=== PATIENT | male | born 1940 | race Caucasian/White ===

== ENCOUNTER → 2017-11-09 10:37 | Outpatient (REF) | payer MEDICARE, MEDICAID, SELFPAY ==
[2017-11-09 11:09] LABS: Bilirubin Negative (Negative); Blood Moderate (Negative); Clarity Cloudy; Glucose Negative (Negative); Ketones Negative (Negative); Leukocyte Esterase Small (Negative); Nitrite Positive (Negative); Urobilinogen 0.2 EU/dL (Up TO 0.2); pH 6.5 (5-8)
[2017-11-09 11:20] LABS: Bacteria Packed HPF (Negative); RBC 20-50 (0-2); WBC >50 HPF (0-5)
[2017-11-09 11:21] LABS: C & S Indicated? Yes; Crystals Moderate Amorphous HPF (Negative)
== END ==
LOC: NCHCN 10:37
PROVIDERS: PCP Family Medicine; Visit Provider Family Medicine
DX: N39.0 Urinary tract infection, site not specified (principal); R50.9 Fever, unspecified
CPT/HCPCS: 81003; 81015; 87086

== ENCOUNTER 2017-11-09 12:45 | Emergency (ER) | payer MEDICARE, MEDICAID, SELFPAY ==
[2017-11-09] VITALS (33 sets, daily range): BP systolic 117–166; BP diastolic 57–82; PULSE 73–95; RESP 11–23; TEMP 36.3–36.7; O2SAT 93–99
--- NOTE | 2017-11-09 13:14 | DI.REPORT_ITS ---
SYMPTOM/DIAGNOSIS: CHEST PAIN PORTABLE AP CHEST: Comparison is made with 04/10/17. The lungs are suboptimally inflated. There is blunting and linear densities at the left costophrenic angle which could represent atelectasis. An infiltrate or effusion cannot be excluded on this single view. The right lung shows mild basilar atelectasis. The heart size is normal. IMPRESSION: Question of a small left pleural effusion, infiltrate versus atelectasis.
[2017-11-09] MEDS: Normal Saline 1,000 ML 1000 ML IV (13:30)
--- NOTE | 2017-11-09 13:31 | ED.GENADUL ---
Disposition Clinical Impression: UTI (urinary tract infection), Alzheimer's type dementia Disposition: [facility] (LEVEL 2) [facility] Condition: Stable Instructions: Urinary Tract Infection in Men (ED) Additional Instructions: Please continue the cefepime every 12 hours, if this is not possible, an alternative would be ceftriaxone. Please continue IV fluids, continue to monitor. Medical Decision Making - Medical Decision Making This is a 77-year-old male with a history of COPD, Alzheimer's, hypertension, massive CVA, who is DNR/DNI comfort measures only sign for antibiotics who has a do not transport statement on file. Per nursing staff at his extended care facility the patient verbalized today that he wanted to come to the ER for evaluation. They noticed a fever on exam, but no other complaints. The patient arrived in the ED he is nonverbal, responsive to sternal rub, moving all extremities spontaneously, but extremely fatigued. Gag reflex was intact. The patient did not speak at all. I did contact the physician at the facility and discussed the case with her (tatiana), she states that she had been told about the patient but she had not had the opportunity to evaluate the patient prior to transfer. She does confirm that the patient had been a DNR/DNI. This was reviewed on my own personal review of the patient's paperwork here in the ED. With the patient's fever he has worked up and evaluated for any potential infectious etiology, chest x-ray shows questionable pneumonia, however the patient's urinalysis does demonstrate notable signs of infection. Due to his chronic indwelling Mackay we will start him on cefepime, however I do think outpatient ceftriaxone is reasonable. Patient does have mildly elevated white count, however the remainder of his labs are otherwise unremarkable in his current clinical setting. Patient was given a small bolus of fluids as well, and still appears very stable. I did contact the patient's next of kin, on his emergency contact file, discussed the case and scenario with them, and they state that the patient has not been speaking for the last 3-4 days, and has been slowly deteriorating. They agree with the patient's documented paperwork stating his DNR/DNI/comfort measures only with antibiotics requests. They demonstrated understanding of his current clinical scenario. He had no other additional recommendations or thoughts at this time. I did contact the physician at the patient's rehab facility and again discussed the case with her, she agrees that with the patient's medical decision-making request, his current clinical disposition, and his clinical workup that he can be cared for at the rehab facility. Patient has been given cefepime here, and if possible they will continue cefepime there however if this becomes difficult they do think ceftriaxone would be very reasonable with potential reevaluation post cultures. I have extensively reviewed the treatment plan with the patient. I have addressed all patient concerns at this time. I have also discussed the plan with the admitting physician and they agree with the current assessment and plan and have agreed to assume responsibility for the patient. All parties demonstrate verbal understanding and agreement with our assessment and plan at this time. History of Present Illness - General Chief complaint: Fever Stated complaint: CALEX Time Seen by Provider: 11/09/17 13:09 - History of Present Illness Initial comments: This is a 77-year-old male with a past medical history of COPD, severe Alzheimer's, hypertension, cerebrovascular accident who is DNR/DNI comfort measures only with allowance for antibiotics, and also has a no transport request on file. He presents today for evaluation. Nursing staff at his extended care facility states that today he had a temperature with a T-max greater than 101. They noticed a decrease in mental status, that he has become nonverbal. However in spite of this they state that the patient specifically verbally said that he wanted to come to the ER for evaluation. The patient was not evaluated by the physician prior to transfer. Upon arrival the patient is nonverbal and has no complaints. He is lying in bed and only responds to sternal rub. He does appear to move all extremities when stimulated. Patient has no complaints. Patient has no recent surgical history, no pertinent family history. He does not utilize IV or illicit drugs. He does have a chronic indwelling Mackay catheter. - Related Data Albuterol Sulfate [Ventolin Hfa] 1 - 2 puff IH Q4H PRN puff NS 08/16/12 Citalopram Hydrobromide [Celexa] 30 mg PO DAILY tab-cap NS 08/16/12 Nitroglycerin [Nitrostat] 0.4 mg SL PRN NS 08/16/12 Tamsulosin HCl [Flomax] 0.4 mg PO DAILY tab-cap NS 08/16/12 Aspirin [Aspir 81] 81 mg PO DAILY 11/06/13 Folic Acid [Folate] 1 mg PO DAILY #30 tab 05/24/14 Multivitamin 1 tab PO DAILY #30 tab 05/24/14 Thiamine 100 mg PO DAILY #30 tab 05/24/14 Tiotropium [Spiriva Handihaler] 1 puff IH DAILY #1 shailesh 05/24/14 Acetaminophen [Pain & Fever] 650 mg PO Q4H PRN PRN 11/04/14 Albuterol Sulfate [Albuterol Sulfate Hfa] 8.5 gm IH QID PRN #1 hfa.aer.ad 12/14/14 Pantoprazole Sodium [Protonix] 20 mg PO DAILY 07/31/15 Clopidogrel [Plavix] 75 mg PO DAILY 12/26/16 Memantine HCl [Namenda] 5 mg PO DAILY 12/26/16 Milk of Magnesia [Milk Of Magnesia] 30 ml PO Q6H PRN #0 01/18/17 Bisacodyl [Dulcolax Suppository] 10 mg SD PRN PRN 02/10/17 Docusate Sodium [Stool Softener] 100 mg PO BID 02/10/17 OxyCODONE [Roxicodone Prepack] 5 mg PO Q4H PRN PRN 07/14/17 Fluticasone/Vilanterol [Breo Ellipta 200-25 Mcg INH] 1 each IH DAILY 11/09/17 Allergies Allergy/AdvReac Type Severity Reaction Status Date / Time No Known Allergies Allergy Unverified 11/09/17 12:50 Review of Systems Limitations: ROS unobtainable due to patients medical condition Past Medical History - Past Medical History Medical history: CAD, COPD, CVA/TIA, dementia, hypertension Alzheimer's dementia, BPH, PVD Surgical history: other (B/L femoral bypass 1998, Bladder surgery) - Social History Alcohol use: none (former heavy drinker) Drug use: none General Exam - Other Other exam information: 1.Const: Cachectic appearing elderly male 2.Eyes: PERRL, no conjunctival injection, and symmetrical lids. 3.ENT: Atraumatic external nose and ears. Dry MM. Neck: Symmetric, trachea midline, No thyromegaly. 4.CVS: +S1/S2, No murmurs or gallops. Peripheral pulses 2+ and equal in all extremities. Brisk capillary refill in all extremities. 5.RESP: Unlabored respiratory effort. Clear to auscultation bilaterally. No wheezes rales or rhonchi 6.GI: Soft, Nontender/Nondistended, No hepatosplenomegaly. No guarding or rebound. 7.MSK: Normocephalic/Atraumatic, Extremities w/o deformity or ttp No cyanosis or clubbing, spontaneous movement of all extremities 8.Skin: Warm, Dry. No rashes or lesions. No evidence of trauma 9.Neuro: no focal neurologic deficits. Patient responds to sternal rub. Gag reflex intact Course Vital Signs - 24 hr 11/09/17 12:52 Temperature 36.7 C Pulse 86 Respiratory 23 Rate Blood Pressure 137/82 Pulse Oximetry 96
[2017-11-09 13:32] LABS: HCO3 (Venous) 31 mmol/L (22-28); O2 Sat (Venous) 85 % (70-80); TCO2 (Venous) 28 mmol/L (22-29); pCO2 (Venous) 47 mm/Hg (34-47); pH (Venous) 7.42 (7.32-7.43); pO2 (Venous) 52 mm/Hg (28-44)
[2017-11-09 13:47] LABS: Abs Immature Grans 0.04 k/cumm (0.0-0.09); Absolute Basophil Count 0.03 k/cumm (0.0-0.2); Absolute Eosinophil Count 0.08 k/cumm (0.0-0.7); Absolute Lymphocyte Count 2.25 k/cumm (1.2-3.4); Absolute Monocyte Count 1.59 k/cumm (0.11-0.7); Absolute Neutrophil Count 11.42 k/cumm (1.2-6.7); Basophils % 0.2; Eosinophils % 0.5; HGB 10.4 g/dL (13.5-17.5); Immature Grans % 0.3; Lymphocytes % 14.6; Mean Corp. HGB Concentration 29.7 g/dL (32.0-36.0); Mean Corpuscular Hemoglobin 24.6 pg (27.0-33.0); Mean Corpuscular Volume 82.9 fL (80-95); Mean Platelet Volume 11.4 fL (8.0-11.0); Monocytes % 10.3; Neutrophils % 74.1; PTT Activated 28.7 sec (21.0-31.4); Platelet Count 214 x1000/uL (130-400); Prothrombin Time 9.8 sec (9.3-10.8); RBC 4.22 m/cumm (4.50-6.00); RBC Distribution Width 17.7 % (11.8-14.1); White Blood Cell Count 15.41 k/cumm (4.4-10.8)
[2017-11-09 13:50] LABS: Ammonia 25 umol/L (11-32)
[2017-11-09] MEDS: CEFEPIME 2 GM in Normal Saline 100 ML IVPB (13:50)
[2017-11-09 13:53] LABS: ALT 23 U/L (12-78); AST 22 U/L (15-37); Albumin 2.9 g/dL (3.4-5.0); Alkaline Phosphatase 84 U/L (46-116); Anion Gap 4.3 mmol/L (3-11); BUN 21 mg/dL (7-18); Bilirubin, Total 0.4 mg/dL (0.2-1.0); CO2 31.7 mmol/L (21.0-32.0); CREATININE 1.46 mg/dL (0.70-1.30); Calcium 8.7 mg/dL (8.5-10.1); Chloride 103 mmol/L (98-107); Estimated GFR 47.07 (mL/min/1.73m2); Glucose 113 mg/dL (70-100); Potassium 3.4 mmol/L (3.5-5.1); Sodium 139 mmol/L (136-145); Total Protein 7.2 g/dL (6.4-8.2)
[2017-11-09 13:59] LABS: Diff Comment Diff Reviewed
[2017-11-09 14:03] LABS: TSH 0.47 uIU/mL (0.358-3.74)
[2017-11-09 14:56] LABS: Bilirubin Small (Negative); Blood Large (Negative); Clarity Cloudy; Glucose Negative (Negative); Ketones Trace mg/dL (Negative); Leukocyte Esterase Large (Negative); Nitrite Positive (Negative); Urobilinogen 0.2 EU/dL (Up TO 0.2); pH 5.5 (5-8)
[2017-11-09 15:07] LABS: C & S Indicated? C&S Done As Ordered; WBC >50 HPF (0-5)
== END 2017-11-09 16:24 | disposition intermediate care facility (04) ==
PROVIDERS: Emergency Provider Student in an Organized Health Care Education/Training Program; PCP Family Medicine
DX: N39.0 Urinary tract infection, site not specified (principal); G30.9 Alzheimer's disease, unspecified; F02.80 Dementia in other diseases classified elsewhere, unspecified severity, without behavioral disturbance, psychotic disturbance, mood disturbance, and anxiety; J44.9 Chronic obstructive pulmonary disease, unspecified; Z87.891 Personal history of nicotine dependence; I10 Essential (primary) hypertension; Z96.0 Presence of urogenital implants
CPT/HCPCS: 71045; 96361; 96374; 99284; 99285; 36415; 80053; 82805; 81003; 81015; 82140; 84443; 85025; 85610; 85730; 87086

== ENCOUNTER 2017-12-28 09:49 | Outpatient (CLI) | payer MEDICARE, MEDICAID, SELFPAY ==
--- NOTE | 2017-12-28 09:50 | DI.RAD_ITS ---
SYMPTOM/DIAGNOSIS: RESTRICTIVE MOTION OF JOINT LEFT SHOULDER: Two views. Comparison is made with 11/09/17. No acute fracture or dislocation is identified. The articular surfaces are well maintained. The bones appear normally mineralized. The soft tissues are unremarkable. IMPRESSION: No acute abnormality.
== END 2017-12-28 10:09 ==
PROVIDERS: PCP Family Medicine; Referring Provider Family Medicine; Visit Provider Orthopaedic Surgery
DX: M25.512 Pain in left shoulder
CPT/HCPCS: 99211; 99214; 73030

== ENCOUNTER 2018-01-06 18:54 | Emergency (ER) | payer MEDICARE, MEDICAID, SELFPAY ==
[2018-01-06 18:32] VITALS: BP 215/113; PULSE 132; RESP 20; TEMP 37.1; O2SAT 93
--- NOTE | 2018-01-06 18:41 | W.ED.GENAD ---
Discharge Plan Disposition Patient Disposition: HOME Condition: Fair Discharge Details Chief Complaint: Urinary Clinical Impression: Acute UTI Reason For Visit: AMINTA Primary Care Provider: Helen Mann V ED Provider: Alexa Santiago Home Meds and New Rx's Prescriptions: New cephalexin [Keflex] 500 mg capsule 500 mg PO QID Qty: 28 RF: 0 Continue citalopram [Celexa] 10 MG tablet 30 mg PO DAILY RF: 0 tamsulosin [Flomax] 0.4 MG capsule 0.4 mg PO DAILY RF: 0 nitroglycerin [Nitrostat] 0.4 MG tablet, sublingual 0.4 mg Sublingual PRN RF: 0 albuterol sulfate [Ventolin HFA] 8 GM HFA aerosol inhaler 1 - 2 puff Inhalation Q4H PRN RF: 0 aspirin [Aspir-81] 81 MG tablet,delayed release (DR/EC) 81 mg PO DAILY RF: 0 multivitamin [Multiple Vitamins] 1 TAB tablet 1 tab PO DAILY Qty: 30 RF: 0 folic acid 1 MG tablet 1 mg PO DAILY Qty: 30 RF: 0 thiamine mononitrate (vit B1) [Vitamin B-1 (mononitrate)] 100 MG tablet 100 mg PO DAILY Qty: 30 RF: 0 tiotropium bromide [Spiriva with HandiHaler] 1 PUFF capsule, w/inhalation device 1 puff Inhalation DAILY Qty: 1 RF: 0 acetaminophen [Pain and Fever] 325 MG tablet 650 mg PO Q4H PRN PRNRF: 0 albuterol sulfate 8.5 GM HFA aerosol inhaler 8.5 gm Inhalation QID PRN (Reason: Shortness Of Breath) Qty: 1 RF: 0 pantoprazole [Protonix] 40 MG tablet,delayed release (DR/EC) 20 mg PO DAILY RF: 0 OxyCODONE [Roxicodone Prepack] 5 MG Tab 5 mg PO Q4H PRN PRNRF: 0 fluticasone-vilanterol [Breo Ellipta] 1 EACH blister with device 1 ea Inhalation DAILY RF: 0 clopidogrel [Plavix] 75 MG tablet 75 mg PO DAILY RF: 0 memantine [Namenda] 5 MG tablet 5 mg PO DAILY RF: 0 magnesium hydroxide [Milk of Magnesia] 30 ML suspension 30 ml PO Q6H PRNQty: 0 RF: 0 bisacodyl 10 MG suppository 10 mg [place] PRN PRNRF: 0 docusate sodium [Stool Softener] 100 MG capsule 100 mg PO BID RF: 0 Discharge Instructions Instructions: Urinary Tract Infection in Men (ED) Additional Instructions: Please encourage hydration. Give Keflex as prescribed. Catheter care as advised by nursing staff. Please follow up with primary care in one week for reevaluation. If he develops fevers/chills, signs of discomfort or other new/worsening symptoms please seek care urgently once again. EKG has RSR' changes which appear new. However, as patient is [employer] this was not addressed further. Spoke with family regarding this who agree this would be wishes of patient. Referrals: Helen Mann MD [Primary Care Provider] - Discharge Data Discharge Date/Time-TO BE ENTERED AT DEPARTURE: 01/06/18 20:46 Medical Decision Making <JAXON Mary - Last Filed: 01/07/18 23:27> Patient is a 77 year old aphasic male with history of Alzheimer's, presenting today with c/c of diminished urination. Patient had a catheter placed previously with recently removed. However, after removal of the catheter he was unable to urinate. [facility] noted him to have 800 cc on bladder scan. They attempted to replace the catheter and were unsuccessful prompting him to be transferred to the emergency department. No documented fevers. Patient is otherwise reported to be at baseline. Patient is a phasic at baseline. He does not express any discomfort on exam although, secondary to his dementia, this is quite limited. He is tachycardic at 130, hypertensive at 215/113. He is afebrile. Will obtain baseline labs, EKG, urinalysis. Del Toro placed by nursing staff, 900cc of urine out. Lungs are clear on exam. EKG reviewed by Dr. Vyas, please see his note. Acute abnormality noted, he advised this does not appear ischemic Reviewed patient's COLST form. Patient PLATE GAUGER. Agrees to antibiotics but no other treatment. With this in mind, the laboratory evaluation that had been ordered initially was cancelled. UA concerning for moderate amount of blood, small leukocyte esterase, many bacteria. This has been sent for culture. Will treat patient for UTI. Contact the [facility] to see if patient has family member to discuss this with. Spoke with Vicky, patient's sister in law and family to notify. She advised that Gala would want his COLST form followed, does not belive he would want the EKG changes to be looked into further. Advised that we should keep him comfortable with del toro catheter and begin abx as was on his COLST form for UTI. After bladder drained, vital signs greatly improved. BP currently 123/82, HR 108. Patinets overall mental state unchanged. Discussed this with [facility], they advised this is typical for hte patient. [facility]. I did advised them n the EKG changes and our place to follow the patient's wishes. They agree with this. REport that patient is able to take medication in apple sauce and will begin him on the abx prescribed for his UTI. Encoruaged hdyration. They are aware of catheter care. All of their questions and cocnerns were addressed. <Adolph Vyas MD - Last Filed: 01/06/18 20:45> ECG Data Attestation: I personally reviewed and interpreted this ECG (s) as follows: HPI <JAXON Mary - Last Filed: 01/07/18 23:27> General Mode of arrival: EMS. Date/Time Provider Initiated Documentation: 01/06/18 19:19. Limitations to Documentation: altered mental status. Information obtained by: old records reviewed (report given from [facility]). History of Present Illness 77 year old M presents to the emergency department with the chief complaint of urinary retention, and is localized to the abdomen. Patient started experiencing this day(s) (1) and it has been constant. Patient did receive the following treatments prior to arrival, other (attempt was made at placing catheter, this was unable to be completed.) Related Data Home Medications Medication Instructions Recorded Confirmed albuterol sulfate [Ventolin HFA] 1 - 2 puff INHALATION Q4H PRN 08/16/12 12/28/17 puff NS citalopram [Celexa] 30 mg PO DAILY tab-cap NS 08/16/12 12/28/17 nitroglycerin [Nitrostat] 0.4 mg SUBLINGUAL PRN NS 08/16/12 12/28/17 tamsulosin [Flomax] 0.4 mg PO DAILY tab-cap NS 08/16/12 12/28/17 aspirin [Aspir-81] 81 mg PO DAILY 11/06/13 12/28/17 folic acid 1 mg PO DAILY #30 tab 05/24/14 12/28/17 multivitamin [Multiple Vitamins] 1 tab PO DAILY #30 tab 05/24/14 12/28/17 thiamine mononitrate (vit B1) 100 mg PO DAILY #30 tab 05/24/14 12/28/17 [Vitamin B-1 (mononitrate)] tiotropium bromide [Spiriva with 1 puff INHALATION DAILY #1 shailesh 05/24/14 12/28/17 HandiHaler] acetaminophen [Pain and Fever] 650 mg PO Q4H PRN PRN 11/04/14 12/28/17 albuterol sulfate 8.5 gm INHALATION QID PRN #1 12/14/14 12/28/17 hfa.aer.ad pantoprazole [Protonix] 20 mg PO DAILY 07/31/15 12/28/17 clopidogrel [Plavix] 75 mg PO DAILY 12/26/16 12/28/17 memantine [Namenda] 5 mg PO DAILY 12/26/16 12/28/17 magnesium hydroxide [Milk of 30 ml PO Q6H PRN #0 01/18/17 12/28/17 Magnesia] bisacodyl 10 mg [place] PRN PRN 02/10/17 12/28/17 docusate sodium [Stool Softener] 100 mg PO BID 02/10/17 12/28/17 OxyCODONE [Roxicodone Prepack] 5 mg PO Q4H PRN PRN 07/14/17 12/28/17 fluticasone-vilanterol [Breo 1 ea INHALATION DAILY 11/09/17 12/28/17 Ellipta] cephalexin [Keflex] 500 mg PO QID #28 cap 01/06/18 Previous Rx's Medication Instructions Recorded folic acid 1 mg PO DAILY #30 tab 05/24/14 multivitamin [Multiple Vitamins] 1 tab PO DAILY #30 tab 05/24/14 thiamine mononitrate (vit B1) 100 mg PO DAILY #30 tab 05/24/14 [Vitamin B-1 (mononitrate)] tiotropium bromide [Spiriva with 1 puff INHALATION DAILY #1 shailesh 05/24/14 HandiHaler] albuterol sulfate 8.5 gm INHALATION QID PRN #1 12/14/14 hfa.aer.ad magnesium hydroxide [Milk of 30 ml PO Q6H PRN #0 01/18/17 Magnesia] cephalexin [Keflex] 500 mg PO QID #28 cap 01/06/18 Allergies Allergy/AdvReac Type Severity Reaction Status Date / Time No Known Allergies Allergy Unverified 01/06/18 18:31 General Stated Complaint: Urinary JIGAR: 3 Review of Systems <JAXON Mary Last Filed: 01/07/18 23:27> Review of Systems Unobtainable due to mental condition Exam <JAXON Mary Last Filed: 01/07/18 23:27> Const General: uncooperative (patient is unresponsive. Fights me on exam.), no acute distress, frail appearing and No well hydrated Nutritional Appearance: cachectic HENMN Head: normal to inspection, normocephalic and atraumatic Mouth: mucous membranes dry (patient appears dry, will not open his mouth) Neck Neck: normal visual inspection and no lymphadenopathy Resp Effort & Inspection: normal respiratory effort, able to speak in complete sentences and no respiratory distress Auscultation: clear to auscultation bilaterally, no rales, no rhonchi and no wheezes Cardio Rate: tachycardic Rhythm: regular rhythm Heart Sounds: S1 normal and S2 normal GI Inspection: scar (patient has multiple scars) Palpation: soft, no hepatosplenomegaly, no aortic enlargement, not firm, no guarding, no masses, no pulsatile masses and not rigid Auscultation: normal bowel sounds Skin General skin exam: no rashes or lesions noted Lesions: no lesions Rashes: no rashes Neuro General: alert, awake and not oriented x3 (patient aphasic) Extrem General: no pedal edema and no calf tenderness Psych Appearance: disheveled Mental Status: mental status grossly abnormal (patient aphasic) Course <JAXON Mary Last Filed: 01/07/18 23:27> Vital Signs Temperature 37.1 C 01/06/18 18:32 Pulse 132 H 01/06/18 18:32 Respiratory Rate 20 01/06/18 18:32 Blood Pressure 215/113 H 01/06/18 18:32 Pulse Oximetry 93 L 10/18/18 18:32 Temperature 37.1 C 01/06/18 18:32 Temperature Source Temporal Artery Scan 01/06/18 18:32 Pulse 132 H 01/06/18 18:32 Respiratory Rate 20 01/06/18 18:32 Respiratory Effort 01/06/18 18:32 Blood Pressure 215/113 H 01/06/18 18:32 Blood Pressure Position Sitting 18 18:32 Pulse Oximetry 93 L 01/06/18 18:32 Oxygen Delivery Method Room Air 01/06/18 18:32 Oxygen Flow Rate 0 18 18:32
--- NOTE | 2018-01-06 18:45 | ED.GENADUL_ITS ---
Addendum entered and electronically signed by Adolph Vyas M.D. 01/06/18 20:46 : My ecg interpretation listed below was for old ecg dated 03/26/17. ECG from today reviewed and interpreted by me: Sinus tachycardia 121 bpm, RSR', normal axis, nondiagnostic. Original Note: Discharge Plan Disposition Patient Disposition: HOME Condition: Fair Discharge Details Chief Complaint: Urinary Clinical Impression: Acute UTI Reason For Visit: AMINAT Primary Care Provider: Helen Mann V ED Provider: Alexa Santiago Home Meds and New Rx's Prescriptions: New cephalexin [Keflex] 500 mg capsule 500 mg PO QID Qty: 28 RF: 0 Continue citalopram [Celexa] 10 MG tablet 30 mg PO DAILY RF: 0 tamsulosin [Flomax] 0.4 MG capsule 0.4 mg PO DAILY RF: 0 nitroglycerin [Nitrostat] 0.4 MG tablet, sublingual 0.4 mg Sublingual PRN RF: 0 albuterol sulfate [Ventolin HFA] 8 GM HFA aerosol inhaler 1 - 2 puff Inhalation Q4H PRN RF: 0 aspirin [Aspir-81] 81 MG tablet,delayed release (DR/EC) 81 mg PO DAILY RF: 0 multivitamin [Multiple Vitamins] 1 TAB tablet 1 tab PO DAILY Qty: 30 RF: 0 folic acid 1 MG tablet 1 mg PO DAILY Qty: 30 RF: 0 thiamine mononitrate (vit B1) [Vitamin B-1 (mononitrate)] 100 MG tablet 100 mg PO DAILY Qty: 30 RF: 0 tiotropium bromide [Spiriva with HandiHaler] 1 PUFF capsule, w/inhalation device 1 puff Inhalation DAILY Qty: 1 RF: 0 acetaminophen [Pain and Fever] 325 MG tablet 650 mg PO Q4H PRN PRNRF: 0 albuterol sulfate 8.5 GM HFA aerosol inhaler 8.5 gm Inhalation QID PRN (Reason: Shortness Of Breath) Qty: 1 RF: 0 pantoprazole [Protonix] 40 MG tablet,delayed release (DR/EC) 20 mg PO DAILY RF: 0 OxyCODONE [Roxicodone Prepack] 5 MG Tab 5 mg PO Q4H PRN PRNRF: 0 fluticasone-vilanterol [Breo Ellipta] 1 EACH blister with device 1 ea Inhalation DAILY RF: 0 clopidogrel [Plavix] 75 MG tablet 75 mg PO DAILY RF: 0 memantine [Namenda] 5 MG tablet 5 mg PO DAILY RF: 0 magnesium hydroxide [Milk of Magnesia] 30 ML suspension 30 ml PO Q6H PRNQty: 0 RF: 0 bisacodyl 10 MG suppository 10 mg CA PRN PRNRF: 0 docusate sodium [Stool Softener] 100 MG capsule 100 mg PO BID RF: 0 Discharge Instructions Instructions: Urinary Tract Infection in Men (ED) Additional Instructions: Please encourage hydration. Give Keflex as prescribed. Catheter care as advised by nursing staff. Please follow up with primary care in one week for reevaluation. If he develops fevers/chills, signs of discomfort or other new/ worsening symptoms please seek care urgently once again. EKG has RSR' changes which appear new. 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 Spoke with family regarding this who agree this would be wishes of patient. Referrals: Helen Mann MD [Primary Care Provider] - Discharge Data Discharge Date/Time-TO BE ENTERED AT DEPARTURE: 01/06/18 20:46 Medical Decision Making <JAXON Mary - Last Filed: 01/07/18 23:27> Patient is a 77 year old aphasic male with history of Alzheimer's, presenting today with c/c of diminished urination. Patient had a catheter placed previously with recently removed. However, after removal of the catheter he was unable to urinate. [facility] noted him to have 800 cc on bladder scan. They attempted to replace the catheter and were unsuccessful prompting him to be transferred to the emergency department. No documented fevers. Patient is otherwise reported to be at baseline. Patient is a phasic at baseline. He does not express any discomfort on exam although, secondary to his dementia, this is quite limited. He is tachycardic at 130, hypertensive at 215/113. He is afebrile. Will obtain baseline labs, EKG, urinalysis. Del Toro placed by nursing staff, 900cc of urine out. Lungs are clear on exam. EKG reviewed by Dr. Vyas, please see his note. Acute abnormality noted, he advised this does not appear ischemic Reviewed patient's COLST form. 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 Agrees to antibiotics but no other treatment. With this in mind, the laboratory evaluation that had been ordered initially was cancelled. UA concerning for moderate amount of blood, small leukocyte esterase, many bacteria. This has been sent for culture. Will treat patient for UTI. Contact the [facility] to see if patient has family member to discuss this with. Spoke with Vicky, patient's sister in law and family to notify. She advised that Gala would want his COLST form followed, does not belive he would want the EKG changes to be looked into further. Advised that we should keep him comfortable with del toro catheter and begin abx as was on his COLST form for UTI. After bladder drained, vital signs greatly improved. BP currently 123/82, HR 108. Patinets overall mental state unchanged. Discussed this with [facility], they advised this is typical for hte patient. [facility]. I did advised them n the EKG changes and our place to follow the patient's wishes. They agree with this. REport that patient is able to take medication in apple sauce and will begin him on the abx prescribed for his UTI. Encoruaged hdyration. They are aware of catheter care. All of their questions and cocnerns were addressed. <Adolph Vyas MD - Last Filed: 01/06/18 20:45> ECG Data Attestation: I personally reviewed and interpreted this ECG (s) as follows: HPI <JAXON Mary - Last Filed: 01/07/18 23:27> General Mode of arrival: EMS . Date/Time Provider Initiated Documentation: 01/06/18 19:19 . Limitations to Documentation: altered mental status . Information obtained by: old records reviewed (report given from [facility]) . History of Present Illness 77 year old M presents to the emergency department with the chief complaint of urinary retention, and is localized to the abdomen. Patient started experiencing this day(s) (1) and it has been constant. Patient did receive the following treatments prior to arrival, other (attempt was made at placing catheter, this was unable to be completed.) Related Data Home Medications Medication Instructions Recorded Confirmed albuterol sulfate [Ventolin HFA] 1 - 2 puff INHALATION Q4H PRN 05/28/13 10/09/18 puff NS citalopram [Celexa] 30 mg PO DAILY tab-cap NS 08/16/12 12/28/17 nitroglycerin [Nitrostat] 0.4 mg SUBLINGUAL PRN NS 08/16/12 12/28/17 tamsulosin [Flomax] 0.4 mg PO DAILY tab-cap NS 08/16/12 12/28/17 aspirin [Aspir-81] 81 mg PO DAILY 11/06/13 12/28/17 folic acid 1 mg PO DAILY #30 tab 05/24/14 12/28/17 multivitamin [Multiple Vitamins] 1 tab PO DAILY #30 tab 05/24/14 12/28/17 thiamine mononitrate (vit B1) 100 mg PO DAILY #30 tab 05/24/14 12/28/17 [Vitamin B-1 (mononitrate)] tiotropium bromide [Spiriva with 1 puff INHALATION DAILY #1 shailesh 05/24/14 HandiHaler] acetaminophen [Pain and Fever] 650 mg PO Q4H PRN PRN 11/04/14 12/28/17 albuterol sulfate 8.5 gm INHALATION QID PRN #1 12/14/14 12/28/17 hfa.aer.ad pantoprazole [Protonix] 20 mg PO DAILY 07/31/15 12/28/17 clopidogrel [Plavix] 75 mg PO DAILY 12/26/16 12/28/17 memantine [Namenda] 5 mg PO DAILY 12/26/16 12/28/17 magnesium hydroxide [Milk of 30 ml PO Q6H PRN #0 01/18/17 12/28/17 Magnesia] bisacodyl 10 mg CA PRN PRN 02/10/17 12/28/17 docusate sodium [Stool Softener] 100 mg PO BID 02/10/17 12/28/17 OxyCODONE [Roxicodone Prepack] 5 mg PO Q4H PRN PRN 07/14/17 12/28/17 fluticasone-vilanterol [Breo 1 ea INHALATION DAILY 11/09/17 12/28/17 Ellipta] cephalexin [Keflex] 500 mg PO QID #28 cap 01/06/18 Previous Rx's Medication Instructions Recorded folic acid 1 mg PO DAILY #30 tab 05/24/14 multivitamin [Multiple Vitamins] 1 tab PO DAILY #30 tab 05/24/14 thiamine mononitrate (vit B1) 100 mg PO DAILY #30 tab 05/24/14 [Vitamin B-1 (mononitrate)] tiotropium bromide [Spiriva with 1 puff INHALATION DAILY #1 shailesh 05/24/14 HandiHaler] albuterol sulfate 8.5 gm INHALATION QID PRN #1 12/14/14 hfa.aer.ad magnesium hydroxide [Milk of 30 ml PO Q6H PRN #0 01/18/17 Magnesia] cephalexin [Keflex] 500 mg PO QID #28 cap 01/06/18 Allergies Allergy/AdvReac Type Severity Reaction Status Date / Time No Known Allergies Allergy Unverified 01/06/18 18:31 General Stated Complaint: Urinary JIGAR: 3 Review of Systems <JAXON Mary - Last Filed: 01/07/18 23:27> Review of Systems Unobtainable due to mental condition Exam <JAXON Mary Last Filed: 01/07/18 23:27> Const General: uncooperative (patient is unresponsive. Fights me on exam.), no acute distress, frail appearing and No well hydrated Nutritional Appearance: cachectic [facility] Head: normal to inspection, normocephalic and atraumatic Mouth: mucous membranes dry (patient appears dry, will not open his mouth) Neck Neck: normal visual inspection and no lymphadenopathy Resp Effort & Inspection: normal respiratory effort, able to speak in complete sentences and no respiratory distress Auscultation: clear to auscultation bilaterally, no rales, no rhonchi and no wheezes Cardio Rate: tachycardic Rhythm: regular rhythm Heart Sounds: S1 normal and S2 normal GI Inspection: scar (patient has multiple scars) Palpation: soft, no hepatosplenomegaly, no aortic enlargement, not firm, no guarding, no masses, no pulsatile masses and not rigid Auscultation: normal bowel sounds Skin General skin exam: no rashes or lesions noted Lesions: no lesions Rashes: no rashes Neuro General: alert, awake and not oriented x3 (patient aphasic) Extrem General: no pedal edema and no calf tenderness Psych Appearance: disheveled Mental Status: mental status grossly abnormal (patient aphasic) Course <JAXON Mary Last Filed: 01/07/18 23:27> Vital Signs Temperature 37.1 C 01/06/18 18:32 Pulse 132 H 18 18:32 Respiratory Rate 20 01/06/18 18:32 Blood Pressure 215/113 H 18 18:32 Pulse Oximetry 93 L 18 18:32 Temperature 37.1 C 01/06/18 18:32 Temperature Source Temporal Artery Scan 01/06/18 18:32 Pulse 132 H 01/06/18 18:32 Respiratory Rate 20 18 18:32 Respiratory Effort 18 18:32 Blood Pressure 215/113 H 18 18:32 Blood Pressure Position Sitting 01/06/18 18:32 Pulse Oximetry 93 L 01/06/18 18:32 Oxygen Delivery Method Room Air 01/06/18 18:32 Oxygen Flow Rate 0 01/06/18 18:32
[2018-01-06 18:57] VITALS: BP 123/82
[2018-01-06 18:59] LABS: Bilirubin Negative (Negative); Blood Moderate (Negative); Clarity Cloudy; Glucose Negative (Negative); Ketones Negative (Negative); Leukocyte Esterase Small (Negative); Nitrite Negative (Negative); Urobilinogen 0.2 EU/dL (Up TO 0.2); pH 8.5 (5-8)
[2018-01-06 19:06] LABS: Bacteria Many HPF (Negative); Epithelial Cells Negative HPF (Negative); Other Cells Negative (Negative); WBC 20-50 HPF (0-5)
[2018-01-06 19:07] LABS: C & S Indicated? Yes; Casts Negative LPF (Negative); Crystals Negative HPF (Negative); Mucus Heavy (Negative)
[2018-01-07] VITALS: BP 123/82; PULSE 108; RESP 20; TEMP 37.1; O2SAT 93
== END 2018-01-06 20:46 | disposition home or self-care (01) ==
PROVIDERS: Emergency Provider Physician Assistant; PCP Family Medicine
DX: N39.0 Urinary tract infection, site not specified (principal); B96.4 Proteus (mirabilis) (morganii) as the cause of diseases classified elsewhere; R00.0 Tachycardia, unspecified; I10 Essential (primary) hypertension
CPT/HCPCS: 36415; 51702; 80053; 87077; 93005; 99284; 81003; 81015; 83735; 84484; 85025; 87086; 87186; 93010

== ENCOUNTER 2018-02-03 21:25 | Emergency (ER) | payer MEDICARE, MEDICAID, SELFPAY ==
[2018-02-03 21:29] VITALS: BP 178/67; PULSE 89; RESP 20; TEMP 37.7; O2SAT 96
[2018-02-03] MEDS: Acetaminophen 325 MG TAB 650 MG PO (21:30)
--- NOTE | 2018-02-03 21:31 | DI.CT_ITS ---
SYMPTOM/DIAGNOSIS: FELL, NECK PAIN NONCONTRAST HEAD CT: Comparison is made with 09/13/17. There is cerebral atrophy consistent with the patient's area. There are areas of decreased attenuation throughout the white matter most consistent with small vessel ischemic disease. There are multiple bilateral old lacunar infarcts present. No evidence of acute intracranial hemorrhage, midline shift, mass effect or infarct is seen. The calvarium is intact. No fluid levels are seen in the visualized paranasal sinuses. The mastoid air cells are well pneumatized. IMPRESSION: No acute intracranial process. CERVICAL SPINE CT: Multiple contiguous axial images of the cervical spine were obtained. Sagittal and coronal reformatted images were evaluated on the Siemens workstation. No acute fractures or subluxations in the cervical spine are seen. There are moderately severe degenerative changes present throughout the cervical spine with multi level central spinal canal and neural foraminal stenosis. The findings are most marked at C 5-6 and C 6-7. There is no significant prevertebral soft tissue swelling. Emphysematous changes are seen in the lung apices. IMPRESSION: No acute fracture or subluxation of the cervical spine.
--- NOTE | 2018-02-03 21:32 | W.ED.GENAD ---
Discharge Plan Disposition Patient Disposition: [facility] (LEVEL [facility]) [facility] Condition: Improving Discharge Details Chief Complaint: Nk/Back Pain Clinical Impression: Cervical strain, Chronic indwelling Mackay catheter Primary Care Provider: Helen Mann V ED Provider: Jose Francisco Pillai Home Meds and New Rx's Prescriptions: Continue citalopram [Celexa] 10 MG tablet 30 mg PO DAILY RF: 0 tamsulosin [Flomax] 0.4 MG capsule 0.4 mg PO DAILY RF: 0 nitroglycerin [Nitrostat] 0.4 MG tablet, sublingual 0.4 mg Sublingual PRN RF: 0 albuterol sulfate [Ventolin HFA] 8 GM HFA aerosol inhaler 1 - 2 puff Inhalation Q4H PRN RF: 0 aspirin [Aspir-81] 81 MG tablet,delayed release (DR/EC) 81 mg PO DAILY RF: 0 multivitamin [Multiple Vitamins] 1 TAB tablet 1 tab PO DAILY Qty: 30 RF: 0 folic acid 1 MG tablet 1 mg PO DAILY Qty: 30 RF: 0 thiamine mononitrate (vit B1) [Vitamin B-1 (mononitrate)] 100 MG tablet 100 mg PO DAILY Qty: 30 RF: 0 tiotropium bromide [Spiriva with HandiHaler] 1 PUFF capsule, w/inhalation device 1 puff Inhalation DAILY Qty: 1 RF: 0 acetaminophen [Pain and Fever] 325 MG tablet 650 mg PO Q4H PRN PRNRF: 0 albuterol sulfate 8.5 GM HFA aerosol inhaler 8.5 gm Inhalation QID PRN (Reason: Shortness Of Breath) Qty: 1 RF: 0 pantoprazole [Protonix] 40 MG tablet,delayed release (DR/EC) 20 mg PO DAILY RF: 0 OxyCODONE [Roxicodone Prepack] 5 MG Tab 5 mg PO Q4H PRN PRNRF: 0 fluticasone-vilanterol [Breo Ellipta] 1 EACH blister with device 1 ea Inhalation DAILY RF: 0 clopidogrel [Plavix] 75 MG tablet 75 mg PO DAILY RF: 0 memantine [Namenda] 5 MG tablet 5 mg PO DAILY RF: 0 magnesium hydroxide [Milk of Magnesia] 30 ML suspension 30 ml PO Q6H PRNQty: 0 RF: 0 bisacodyl 10 MG suppository 10 mg [place] PRN PRNRF: 0 docusate sodium [Stool Softener] 100 MG capsule 100 mg PO BID RF: 0 Changed cephalexin [Keflex] 500 mg capsule 500 mg PO TID Qty: 28 RF: 0 Discharge Instructions Instructions: Cervical Strain (ED) Additional Instructions: You have a urine culture pending. We will begin treatment with Keflex which I prescribed, but you may need an order from your attending physician. . CT scan of the head and cervical spine were unremarkable. He may have ongoing mild symptoms of neck strain. Return to the emergency department for any acute concern Medical Decision Making 77-year-old male presents [facility] without loss of consciousness. He complains of neck pain. Is noted to have a low-grade fever earlier today. Differential diagnosis includes cervical contusion, sprain, underlying fracture. Must rule out UTI in this patient with indwelling Mackay catheter. CT scan of the head and cervical spine are unremarkable for acute process. Urinalysis reveals positive leuk esterase, given his history, feel I must cover for urinary tract infection and patient started on Keflex with culture pending HPI General Mode of arrival: EMS. Date/Time Provider Initiated Documentation: 02/03/18 21:31. Limitations to Documentation: no limitations. Information obtained by: patient and EMS. History of Present Illness 77 year old M presents to the emergency department with the chief complaint of Fall and neck pain, described as mild, Quality is described as constant, and is localized to the neck and left. Patient started experiencing this minute(s) and it has been other (Improving). No relieving factors improve symptom(s), No exacerbating factors reported . HPI Narrative: 77-year-old male presents from local rehab facility. Had a witnessed fall with subsequent complaint of left neck pain. He did not have a loss of consciousness. He had a question of a low-grade fever consistent with previous urinary tract infections as he does have an indwelling Mackay catheter Related Data Home Medications Medication Instructions Recorded Confirmed albuterol sulfate [Ventolin HFA] 1 - 2 puff INHALATION Q4H PRN 08/16/12 12/28/17 puff NS citalopram [Celexa] 30 mg PO DAILY tab-cap NS 08/16/12 12/28/17 nitroglycerin [Nitrostat] 0.4 mg SUBLINGUAL PRN NS 08/16/12 12/28/17 tamsulosin [Flomax] 0.4 mg PO DAILY tab-cap NS 08/16/12 12/28/17 aspirin [Aspir-81] 81 mg PO DAILY 11/06/13 12/28/17 folic acid 1 mg PO DAILY #30 tab 05/24/14 12/28/17 multivitamin [Multiple Vitamins] 1 tab PO DAILY #30 tab 05/24/14 12/28/17 thiamine mononitrate (vit B1) 100 mg PO DAILY #30 tab 05/24/14 12/28/17 [Vitamin B-1 (mononitrate)] tiotropium bromide [Spiriva with 1 puff INHALATION DAILY #1 shailesh 05/24/14 12/28/17 HandiHaler] acetaminophen [Pain and Fever] 650 mg PO Q4H PRN PRN 11/04/14 12/28/17 albuterol sulfate 8.5 gm INHALATION QID PRN #1 12/14/14 12/28/17 hfa.aer.ad pantoprazole [Protonix] 20 mg PO DAILY 07/31/15 12/28/17 clopidogrel [Plavix] 75 mg PO DAILY 12/26/16 12/28/17 memantine [Namenda] 5 mg PO DAILY 12/26/16 12/28/17 magnesium hydroxide [Milk of 30 ml PO Q6H PRN #0 01/18/17 12/28/17 Magnesia] bisacodyl 10 mg [place] PRN PRN 02/10/17 12/28/17 docusate sodium [Stool Softener] 100 mg PO BID 02/10/17 12/28/17 OxyCODONE [Roxicodone Prepack] 5 mg PO Q4H PRN PRN 07/14/17 12/28/17 fluticasone-vilanterol [Breo 1 ea INHALATION DAILY 11/09/17 12/28/17 Ellipta] cephalexin [Keflex] 500 mg PO TID #28 cap 02/03/18 Previous Rx's Medication Instructions Recorded folic acid 1 mg PO DAILY #30 tab 05/24/14 multivitamin [Multiple Vitamins] 1 tab PO DAILY #30 tab 05/24/14 thiamine mononitrate (vit B1) 100 mg PO DAILY #30 tab 05/24/14 [Vitamin B-1 (mononitrate)] tiotropium bromide [Spiriva with 1 puff INHALATION DAILY #1 shailesh 05/24/14 HandiHaler] albuterol sulfate 8.5 gm INHALATION QID PRN #1 12/14/14 hfa.aer.ad magnesium hydroxide [Milk of 30 ml PO Q6H PRN #0 01/18/17 Magnesia] cephalexin [Keflex] 500 mg PO TID #28 cap 02/03/18 Allergies Allergy/AdvReac Type Severity Reaction Status Date / Time No Known Allergies Allergy Unverified 02/03/18 21:37 General JIGAR: 3 Review of Systems Review of Systems 6 out of 10 systems reviewed and otherwise negative PFS Social History Smoking/Tobacco Use Status: Former Tobacco Use Exam Narrative Exam Narrative: GEN: awake, alert, oriented to person. Pleasant, well groomed, interactive. HEAD: Normocephalic, atraumatic ENT: Mucous membranes moist, oropharynx unremarkable, External ear exam unremarkable EYES: PERRL, EOMI NECK: Full ROM, no YOEL, no menigismus, minimal tenderness, no step-off or deformity CHEST/RESP: Nontender, clear to auscultation bilateral, no wheeze/rhonchi/rales CARDIOVASCULAR: RRR, no murmur, rub gerald. 2+ Rad pulse bilateral ABDOMEN: Soft, nontender, no mass. +Bowel sounds. : Mackay catheter in place EXT: Full ROM, no edema, no rash Neuro: Grossly normal neurologic exam, conversant, interactive. Psych: Speech fluent, thoughts congruent, affect normal
--- NOTE | 2018-02-03 22:37 | DI.VRAD_ITS ---
EXAM: CT Head Without Intravenous Contrast EXAM DATE/TIME: 02/03/2018 9:32 PM CLINICAL HISTORY: 77 years old, male; Signs and symptoms; Other: Fall, neck pain TECHNIQUE: Axial computed tomography images of the head/brain without intravenous contrast. All CT scans at this facility use at least one of these dose optimization techniques: automated exposure control; mA and/or kV adjustment per patient size (includes targeted exams where dose is matched to clinical indication); or iterative reconstruction. Coronal and sagittal reformatted images were created and reviewed. COMPARISON: CT HEAD AND CSPINE W/O CONTRAST 09/13/2017 11:48 AM FINDINGS: Brain: Old lacunar infarcts of the basal ganglia, thalami, right adrienne, and right centrum semiovale. Severe nonspecific hypodensities of the periventricular and deep subcortical white matter, most likely secondary to chronic small vessel ischemic change. No intracranial hemorrhage or extra-axial fluid collection. No evidence of mass effect or midline shift. Marquis-white matter differentiation is normal. Ventricles: Moderate prominence of the ventricles and sulci, most likely attributed to parenchymal volume loss. Bones/joints: No acute osseus lesions or fracture. Sinuses: Unremarkable as visualized. Mastoid air cells: Unremarkable. Soft tissues: Unremarkable. IMPRESSION: 1. No acute intracranial pathology. 2. Other chronic findings, as above. EXAM: CT Cervical Spine Without Intravenous Contrast EXAM DATE/TIME: 02/03/2018 9:32 PM CLINICAL HISTORY: 77 years old, male; Signs and symptoms; Other: Fall, neck pain TECHNIQUE: Axial computed tomography images of the cervical spine without intravenous contrast. Coronal and sagittal reformatted images were created and reviewed. COMPARISON: CT HEAD AND CSPINE W/O CONTRAST 09/13/2017 11:48 AM FINDINGS: Vertebrae: Vertebral body heights are maintained. No locked or perched facets. Multilevel facet arthropathy. No acute fracture. The dens is intact. Atlanto-axial intervals are normal. Discs/Spinal canal/Neural foramina: Multilevel degenerative changes with intervertebral disc height loss and osteophyte formation, with mild multilevel osseous canal narrowing. No significant spinal stenosis. Soft tissues: Unremarkable. Lungs: Emphysematous changes of the lung apices. IMPRESSION: No acute cervical spine fracture. Dictated and Authenticated by: Marvin Chaparro MD. Ordering:MARIE MONTAÑO MD
[2018-02-03 22:44] LABS: Bilirubin Negative (Negative); Blood Moderate (Negative); Clarity Sl Cloudy; Glucose Negative (Negative); Ketones Negative (Negative); Leukocyte Esterase Small (Negative); Nitrite Negative (Negative); Specific Gravity 1.015 (1.005-1.025); Urobilinogen 0.2 EU/dL (Up TO 0.2)
[2018-02-03 22:54] LABS: Bacteria Moderate HPF (Negative); Crystals Few Amorphous HPF (Negative); Epithelial Cells Negative HPF (Negative); Mucus Negative (Negative); Other Cells Negative (Negative)
[2018-02-03 22:55] LABS: C & S Indicated? Yes; Casts Negative LPF (Negative)
[2018-02-03] MEDS: Cephalexin 500 MG CAP PO (23:05)
[2018-02-03 23:06] VITALS: BP 170/61; PULSE 88; RESP 20; TEMP 38; O2SAT 96
== END 2018-02-03 23:21 | disposition intermediate care facility (04) ==
PROVIDERS: Emergency Provider Emergency Medicine; PCP Family Medicine
DX: S13.4XXA Sprain of ligaments of cervical spine, initial encounter (principal); N39.0 Urinary tract infection, site not specified; B96.5 Pseudomonas (aeruginosa) (mallei) (pseudomallei) as the cause of diseases classified elsewhere; B95.2 Enterococcus as the cause of diseases classified elsewhere; W01.0XXA Fall on same level from slipping, tripping and stumbling without subsequent striking against object, initial encounter; Z96.0 Presence of urogenital implants
CPT/HCPCS: 87077; 99284; 70450; 72125; 81003; 81015; 87086; 87186

== ENCOUNTER → 2018-02-16 10:24 | Outpatient (BNVA) | payer MEDICARE, MEDICAID, SELFPAY | PROVIDERS: PCP Family Medicine; Visit Provider Nurse Practitioner Gerontology | DX: R33.9 Retention of urine, unspecified (principal); Z96.0 Presence of urogenital implants | CPT/HCPCS: 51702; 99213 ==

== ENCOUNTER 2018-02-25 13:38 | Outpatient (REF) | payer MEDICARE, MEDICAID, SELFPAY ==
[2018-02-25 14:18] LABS: Bilirubin Negative (Negative); Blood Moderate (Negative); Clarity Clear; Glucose Negative (Negative); Ketones Negative (Negative); Leukocyte Esterase Moderate (Negative); Nitrite Negative (Negative); Urobilinogen 0.2 EU/dL (Up TO 0.2); pH 5.5 (5-8)
[2018-02-25 14:29] LABS: Bacteria Many HPF (Negative); C & S Indicated? Yes; Casts Negative LPF (Negative); Crystals Negative HPF (Negative); Epithelial Cells Negative HPF (Negative); Mucus Negative (Negative); Other Cells Few Renal (Negative); RBC 20-50 (0-2); WBC >50 HPF (0-5)
== END 2018-02-25 13:58 ==
LOC: LBN 13:38
PROVIDERS: PCP Family Medicine; Visit Provider Internal Medicine
DX: R53.83 Other fatigue (principal); R82.90 Unspecified abnormal findings in urine; Z87.440 Personal history of urinary (tract) infections
CPT/HCPCS: 81003; 81015; 87086

== ENCOUNTER 2018-02-27 09:48 | Emergency (ER) | payer MEDICARE, MEDICAID, SELFPAY ==
[2018-02-27 09:56] VITALS: BP 166/87; PULSE 95; RESP 16; TEMP 36.6; O2SAT 99
--- NOTE | 2018-02-27 10:07 | W.ED.GENAD ---
Discharge Plan Disposition Patient Disposition: [facility] (LEVEL [facility]) [facility] Condition: Good Discharge Details Chief Complaint: Abd Prob Clinical Impression: Acute UTI (urinary tract infection), H/O urinary retention, Chronic indwelling Mackay catheter Primary Care Provider: Helen Mann V ED Provider: Moe Bailey Home Meds and New Rx's Prescriptions: New sulfamethoxazole-trimethoprim [Bactrim DS] 800-160 mg tablet 1 tab PO Q12H Qty: 20 RF: 0 Continue citalopram [Celexa] 10 MG tablet 30 mg PO DAILY RF: 0 tamsulosin [Flomax] 0.4 MG capsule 0.4 mg PO DAILY RF: 0 nitroglycerin [Nitrostat] 0.4 MG tablet, sublingual 0.4 mg Sublingual PRN RF: 0 albuterol sulfate [Ventolin HFA] 8 GM HFA aerosol inhaler 1 - 2 puff Inhalation Q4H PRN RF: 0 aspirin [Aspir-81] 81 MG tablet,delayed release (DR/EC) 81 mg PO DAILY RF: 0 multivitamin [Multiple Vitamins] 1 TAB tablet 1 tab PO DAILY Qty: 30 RF: 0 folic acid 1 MG tablet 1 mg PO DAILY Qty: 30 RF: 0 thiamine mononitrate (vit B1) [Vitamin B-1 (mononitrate)] 100 MG tablet 100 mg PO DAILY Qty: 30 RF: 0 tiotropium bromide [Spiriva with HandiHaler] 1 PUFF capsule, w/inhalation device 1 puff Inhalation DAILY Qty: 1 RF: 0 acetaminophen [Pain and Fever] 325 MG tablet 650 mg PO Q4H PRN PRNRF: 0 albuterol sulfate 8.5 GM HFA aerosol inhaler 8.5 gm Inhalation QID PRN (Reason: Shortness Of Breath) Qty: 1 RF: 0 pantoprazole [Protonix] 40 MG tablet,delayed release (DR/EC) 20 mg PO DAILY RF: 0 OxyCODONE [Roxicodone Prepack] 5 MG Tab 5 mg PO Q4H PRN PRNRF: 0 fluticasone-vilanterol [Breo Ellipta] 1 EACH blister with device 1 ea Inhalation DAILY RF: 0 clopidogrel [Plavix] 75 MG tablet 75 mg PO DAILY RF: 0 memantine [Namenda] 5 MG tablet 5 mg PO DAILY RF: 0 magnesium hydroxide [Milk of Magnesia] 30 ML suspension 30 ml PO Q6H PRNQty: 0 RF: 0 bisacodyl 10 MG suppository 10 mg [place] PRN PRNRF: 0 docusate sodium [Stool Softener] 100 MG capsule 100 mg PO BID RF: 0 No Action cephalexin [Keflex] 500 mg capsule 500 mg PO TID Qty: 28 RF: 0 Discharge Instructions Instructions: Urinary Tract Infection in Men (ED) Referrals: Helen Mann MD [Primary Care Provider] - Return if symptoms worsen Medical Decision Making plan to bladder scan then insert Mackay. Will check UA for infectious pathology. Bladder scan reported by nurse over 1 liter. UA showed nitrite positive, leukocyte esterase, moderate blood, 20-50 wbc. Will treat with Bactrim. Nurse inserted Mackay and pt tolerated well. Will send back to [facility] with Mackay and script for Bactrim. Lab Data Lab results reviewed: Yes I reviewed the patient's lab results. Lab results narrative: Bladder scan reported by nurse over 1 liter. UA showed nitrite positive, leukocyte esterase, moderate blood, 20-50 wbc, HPI General Mode of arrival: wheelchair. Date/Time Provider Initiated Documentation: 02/27/18 10:06. Limitations to Documentation: altered mental status. Information obtained by: patient. History of Present Illness 77 year old M presents to the emergency department with the chief complaint of urinary retention, HPI Narrative: 77 y/o male here from [facility] for Mackay catheter insertion. He has underlying dementia which history was received from [facility] nurse. He has chronic BPH with urinary retention. Reported by [facility] nurse Gala has been pulling out his indwelling catheter three times over the last few days. [facility] sent here to have Mackay placed. Gala does tell me he is in the hospital and lives in [facility]. He tells me his belly hurts. Denies any other pain. Related Data Home Medications Medication Instructions Recorded Confirmed albuterol sulfate [Ventolin HFA] 1 - 2 puff INHALATION Q4H PRN 08/16/12 02/27/18 puff NS citalopram [Celexa] 30 mg PO DAILY tab-cap NS 08/16/12 02/27/18 nitroglycerin [Nitrostat] 0.4 mg SUBLINGUAL PRN NS 08/16/12 02/27/18 tamsulosin [Flomax] 0.4 mg PO DAILY tab-cap NS 08/16/12 02/27/18 aspirin [Aspir-81] 81 mg PO DAILY 11/06/13 02/27/18 folic acid 1 mg PO DAILY #30 tab 05/24/14 02/27/18 multivitamin [Multiple Vitamins] 1 tab PO DAILY #30 tab 05/24/14 02/27/18 thiamine mononitrate (vit B1) 100 mg PO DAILY #30 tab 05/24/14 02/27/18 [Vitamin B-1 (mononitrate)] tiotropium bromide [Spiriva with 1 puff INHALATION DAILY #1 shailesh 05/24/14 02/27/18 HandiHaler] acetaminophen [Pain and Fever] 650 mg PO Q4H PRN PRN 11/04/14 02/27/18 albuterol sulfate 8.5 gm INHALATION QID PRN #1 12/14/14 02/27/18 hfa.aer.ad pantoprazole [Protonix] 20 mg PO DAILY 07/31/15 02/27/18 clopidogrel [Plavix] 75 mg PO DAILY 12/26/16 02/27/18 memantine [Namenda] 5 mg PO DAILY 12/26/16 02/27/18 magnesium hydroxide [Milk of 30 ml PO Q6H PRN #0 01/18/17 02/27/18 Magnesia] bisacodyl 10 mg [place] PRN PRN 02/10/17 02/27/18 docusate sodium [Stool Softener] 100 mg PO BID 02/10/17 02/27/18 OxyCODONE [Roxicodone Prepack] 5 mg PO Q4H PRN PRN 07/14/17 02/27/18 fluticasone-vilanterol [Breo 1 ea INHALATION DAILY 11/09/17 02/27/18 Ellipta] cephalexin [Keflex] 500 mg PO TID #28 cap 02/03/18 02/16/18 sulfamethoxazole-trimethoprim 1 tab PO Q12H #20 tab 02/27/18 [Bactrim DS] Previous Rx's Medication Instructions Recorded folic acid 1 mg PO DAILY #30 tab 05/24/14 multivitamin [Multiple Vitamins] 1 tab PO DAILY #30 tab 05/24/14 thiamine mononitrate (vit B1) 100 mg PO DAILY #30 tab 05/24/14 [Vitamin B-1 (mononitrate)] tiotropium bromide [Spiriva with 1 puff INHALATION DAILY #1 shailesh 05/24/14 HandiHaler] albuterol sulfate 8.5 gm INHALATION QID PRN #1 12/14/14 hfa.aer.ad magnesium hydroxide [Milk of 30 ml PO Q6H PRN #0 01/18/17 Magnesia] cephalexin [Keflex] 500 mg PO TID #28 cap 02/03/18 sulfamethoxazole-trimethoprim 1 tab PO Q12H #20 tab 02/27/18 [Bactrim DS] Allergies Allergy/AdvReac Type Severity Reaction Status Date / Time No Known Allergies Allergy Unverified 02/27/18 11:07 General Stated Complaint: Abd Prob JIGAR: 4 Review of Systems Review of Systems Unobtainable due to mental condition (limited because of dementia) Cardiovascular Reports system reviewed and no additional complaints, except as docu Respiratory Reports system reviewed and no additional complaints, except as docu Gastrointestinal Reports abdominal pain, Denies diarrhea and Denies nausea Genitourinary Reports dysuria Musculoskeletal Reports system reviewed and no additional complaints, except as docu PFSH Social History Smoking/Tobacco Use Status: Former Tobacco Use Exam Const General: cooperative, healthy appearing, comfortable and no acute distress Nutritional Appearance: thin Orientation: alert, awake and oriented to person [facility] Head: atraumatic Ears: hearing grossly normal bilaterally and external ears normal General nose exam: external nose normal Mouth: oral mucosae normal Eyes General: appearance normal, both eyes and all related structures Neck Neck: normal visual inspection, full ROM and no lymphadenopathy Chest Chest: normal inspection of the chest Resp Effort & Inspection: normal respiratory effort Auscultation: clear to auscultation bilaterally Cardio Rate: regular rate Rhythm: regular rhythm GI Inspection: normal to inspection Palpation: firm and tender (over bladder) Auscultation: normoactive bowel sounds General: bladder abnormal distended and tender Distended: Yes and No CVA tenderness Male General Exam: Yes normal external exam, No edema, No erythema, No inguinal lymphadenopathy and No tenderness Penis: normal penis Meatus: meatus normal Scrotum: scrotum normal Testes: normal Skin General skin exam: no rashes or lesions noted Neuro General: alert, awake and moves all extremities Coordination: [id number] test normal and [id number]-[id number] test normal (on left but weak on right) Extrem General: normal to inspection, full ROM and normal capillary refill Psych Appearance: grossly normal Speech and Movement: speech and movement normal Affect: normal affect Attitude: cooperative Course Vital Signs Temperature 36.6 C 02/27/18 09:56 Pulse 95 H 02/27/18 09:56 Respiratory Rate 16 02/27/18 09:56 Blood Pressure 166/87 H 02/27/18 09:56 Pulse Oximetry 99 02/27/18 09:56 Temperature 36.6 C 02/27/18 09:56 Temperature Source Temporal Artery Scan 02/27/18 09:56 Pulse 95 H 02/27/18 09:56 Respiratory Rate 16 02/27/18 09:56 Blood Pressure 166/87 H 02/27/18 09:56 Blood Pressure Position Sitting 02/27/18 09:56 Pulse Oximetry 99 02/27/18 09:56 Oxygen Delivery Method Room Air 02/27/18 09:56 Oxygen Flow Rate 0 02/27/18 09:56 Pain Level 0 02/27/18 09:56
--- NOTE | 2018-02-27 10:19 | ED.GENADUL_ITS ---
Discharge Plan Disposition Patient Disposition: [facility] (LEVEL 2) [facility] Condition: Good Discharge Details Chief Complaint: Abd Prob Clinical Impression: Acute UTI (urinary tract infection), H/O urinary retention, Chronic indwelling Mackay catheter Primary Care Provider: Helen Mann V ED Provider: Moe Bailey Home Meds and New Rx's Prescriptions: New sulfamethoxazole-trimethoprim [Bactrim DS] 800-160 mg tablet 1 tab PO Q12H Qty: 20 RF: 0 Continue citalopram [Celexa] 10 MG tablet 30 mg PO DAILY RF: 0 tamsulosin [Flomax] 0.4 MG capsule 0.4 mg PO DAILY RF: 0 nitroglycerin [Nitrostat] 0.4 MG tablet, sublingual 0.4 mg Sublingual PRN RF: 0 albuterol sulfate [Ventolin HFA] 8 GM HFA aerosol inhaler 1 - 2 puff Inhalation Q4H PRN RF: 0 aspirin [Aspir-81] 81 MG tablet,delayed release (DR/EC) 81 mg PO DAILY RF: 0 multivitamin [Multiple Vitamins] 1 TAB tablet 1 tab PO DAILY Qty: 30 RF: 0 folic acid 1 MG tablet 1 mg PO DAILY Qty: 30 RF: 0 thiamine mononitrate (vit B1) [Vitamin B-1 (mononitrate)] 100 MG tablet 100 mg PO DAILY Qty: 30 RF: 0 tiotropium bromide [Spiriva with HandiHaler] 1 PUFF capsule, w/inhalation device 1 puff Inhalation DAILY Qty: 1 RF: 0 acetaminophen [Pain and Fever] 325 MG tablet 650 mg PO Q4H PRN PRNRF: 0 albuterol sulfate 8.5 GM HFA aerosol inhaler 8.5 gm Inhalation QID PRN (Reason: Shortness Of Breath) Qty: 1 RF: 0 pantoprazole [Protonix] 40 MG tablet,delayed release (DR/EC) 20 mg PO DAILY RF: 0 OxyCODONE [Roxicodone Prepack] 5 MG Tab 5 mg PO Q4H PRN PRNRF: 0 fluticasone-vilanterol [Breo Ellipta] 1 EACH blister with device 1 ea Inhalation DAILY RF: 0 clopidogrel [Plavix] 75 MG tablet 75 mg PO DAILY RF: 0 memantine [Namenda] 5 MG tablet 5 mg PO DAILY RF: 0 magnesium hydroxide [Milk of Magnesia] 30 ML suspension 30 ml PO Q6H PRNQty: 0 RF: 0 bisacodyl 10 MG suppository 10 mg [place] PRN PRNRF: 0 docusate sodium [Stool Softener] 100 MG capsule 100 mg PO BID RF: 0 No Action cephalexin [Keflex] 500 mg capsule 500 mg PO TID Qty: 28 RF: 0 Discharge Instructions Instructions: Urinary Tract Infection in Men (ED) Referrals: Helen Mann MD [Primary Care Provider] - Return if symptoms worsen Medical Decision Making plan to bladder scan then insert Mackay. Will check UA for infectious pathology. Bladder scan reported by nurse over 1 liter. UA showed nitrite positive, leukocyte esterase, moderate blood, 20-50 wbc. Will treat with Bactrim. Nurse inserted Mackay and pt tolerated well. Will send back to [facility] with Mackay and script for Bactrim. Lab Data Lab results reviewed: Yes I reviewed the patient's lab results. Lab results narrative: Bladder scan reported by nurse over 1 liter. UA showed nitrite positive, leukocyte esterase, moderate blood, 20-50 wbc, HPI General Mode of arrival: wheelchair . Date/Time Provider Initiated Documentation: 02/27/18 10:06 . Limitations to Documentation: altered mental status . Information obtained by: patient . History of Present Illness 77 year old M presents to the emergency department with the chief complaint of urinary retention, HPI Narrative: 77 y/o male here from [facility] for Mackay catheter insertion. He has underlying dementia which history was received from [facility] nurse. He has chronic BPH with urinary retention. Reported by [facility] nurse Gala has been pulling out his indwelling catheter three times over the last few days. [facility] sent here to have Mackay placed. Gala does tell me he is in the hospital and lives in [facility]. He tells me his belly hurts. Denies any other pain. Related Data Home Medications Medication Instructions Recorded Confirmed albuterol sulfate [Ventolin HFA] 1 - 2 puff INHALATION Q4H PRN 08/16/12 02/27/18 puff NS citalopram [Celexa] 30 mg PO DAILY tab-cap NS 08/16/12 02/27/18 nitroglycerin [Nitrostat] 0.4 mg SUBLINGUAL PRN NS 08/16/12 02/27/18 tamsulosin [Flomax] 0.4 mg PO DAILY tab-cap NS 08/16/12 02/27/18 aspirin [Aspir-81] 81 mg PO DAILY 11/06/13 02/27/18 folic acid 1 mg PO DAILY #30 tab 05/24/14 02/27/18 multivitamin [Multiple Vitamins] 1 tab PO DAILY #30 tab 05/24/14 02/27/18 thiamine mononitrate (vit B1) 100 mg PO DAILY #30 tab 05/24/14 02/27/18 [Vitamin B-1 (mononitrate)] tiotropium bromide [Spiriva with 1 puff INHALATION DAILY #1 shailesh 05/24/14 HandiHaler] acetaminophen [Pain and Fever] 650 mg PO Q4H PRN PRN 11/04/14 02/27/18 albuterol sulfate 8.5 gm INHALATION QID PRN #1 12/14/14 02/27/18 hfa.aer.ad pantoprazole [Protonix] 20 mg PO DAILY 07/31/15 02/27/18 clopidogrel [Plavix] 75 mg PO DAILY 12/26/16 02/27/18 memantine [Namenda] 5 mg PO DAILY 12/26/16 02/27/18 magnesium hydroxide [Milk of 30 ml PO Q6H PRN #0 01/18/17 02/27/18 Magnesia] bisacodyl 10 mg [place] PRN PRN 02/10/17 02/27/18 docusate sodium [Stool Softener] 100 mg PO BID 02/10/17 02/27/18 OxyCODONE [Roxicodone Prepack] 5 mg PO Q4H PRN PRN 07/14/17 02/27/18 fluticasone-vilanterol [Breo 1 ea INHALATION DAILY 11/09/17 02/27/18 Ellipta] cephalexin [Keflex] 500 mg PO TID #28 cap 02/03/18 02/16/18 sulfamethoxazole-trimethoprim 1 tab PO Q12H #20 tab 02/27/18 [Bactrim DS] Previous Rx's Medication Instructions Recorded folic acid 1 mg PO DAILY #30 tab 05/24/14 multivitamin [Multiple Vitamins] 1 tab PO DAILY #30 tab 05/24/14 thiamine mononitrate (vit B1) 100 mg PO DAILY #30 tab 05/24/14 [Vitamin B-1 (mononitrate)] tiotropium bromide [Spiriva with 1 puff INHALATION DAILY #1 shailesh 05/24/14 HandiHaler] albuterol sulfate 8.5 gm INHALATION QID PRN #1 12/14/14 hfa.aer.ad magnesium hydroxide [Milk of 30 ml PO Q6H PRN #0 01/18/17 Magnesia] cephalexin [Keflex] 500 mg PO TID #28 cap 02/03/18 sulfamethoxazole-trimethoprim 1 tab PO Q12H #20 tab 02/27/18 [Bactrim DS] Allergies Allergy/AdvReac Type Severity Reaction Status Date / Time No Known Allergies Allergy Unverified 02/27/18 11:07 General Stated Complaint: Abd Prob JIGAR: 4 Review of Systems Review of Systems Unobtainable due to mental condition (limited because of dementia) Cardiovascular Reports system reviewed and no additional complaints, except as docu Respiratory Reports system reviewed and no additional complaints, except as docu Gastrointestinal Reports abdominal pain, Denies diarrhea and Denies nausea Genitourinary Reports dysuria Musculoskeletal Reports system reviewed and no additional complaints, except as docu PFSH Social History Smoking/Tobacco Use Status: Former Tobacco Use Exam Const General: cooperative, healthy appearing, comfortable and no acute distress Nutritional Appearance: thin Orientation: alert, awake and oriented to person [facility] Head: atraumatic Ears: hearing grossly normal bilaterally and external ears normal General nose exam: external nose normal Mouth: oral mucosae normal Eyes General: appearance normal, both eyes and all related structures Neck Neck: normal visual inspection, full ROM and no lymphadenopathy Chest Chest: normal inspection of the chest Resp Effort & Inspection: normal respiratory effort Auscultation: clear to auscultation bilaterally Cardio Rate: regular rate Rhythm: regular rhythm GI Inspection: normal to inspection Palpation: firm and tender (over bladder) Auscultation: normoactive bowel sounds General: bladder abnormal distended and tender Distended: Yes and No CVA tenderness Male General Exam: Yes normal external exam, No edema, No erythema, No inguinal lymphadenopathy and No tenderness Penis: normal penis Meatus: meatus normal Scrotum: scrotum normal Testes: normal Skin General skin exam: no rashes or lesions noted Neuro General: alert, awake and moves all extremities Coordination: exowrm-sx-raea test normal and urux-aj-wqbr test normal (on left but weak on right) Extrem General: normal to inspection, full ROM and normal capillary refill Psych Appearance: grossly normal Speech and Movement: speech and movement normal Affect: normal affect Attitude: cooperative Course Vital Signs Temperature 36.6 C 02/27/18 09:56 Pulse 95 H 02/27/18 09:56 Respiratory Rate 16 02/27/18 09:56 Blood Pressure 166/87 H 02/27/18 09:56 Pulse Oximetry 99 02/27/18 09:56 Temperature 36.6 C 02/27/18 09:56 Temperature Source Temporal Artery Scan 02/27/18 09:56 Pulse 95 H 02/27/18 09:56 Respiratory Rate 16 02/27/18 09:56 Blood Pressure 166/87 H 02/27/18 09:56 Blood Pressure Position Sitting 02/27/18 09:56 Pulse Oximetry 99 02/27/18 09:56 Oxygen Delivery Method Room Air 02/27/18 09:56 Oxygen Flow Rate 0 02/27/18 09:56 Pain Level 0 02/27/18 09:56
[2018-02-27 10:36] LABS: Bilirubin Negative (Negative); Blood Moderate (Negative); Clarity Clear; Glucose Negative (Negative); Ketones Negative (Negative); Leukocyte Esterase Trace (Negative); Nitrite Positive (Negative); Specific Gravity 1.015 (1.005-1.025); Urobilinogen 0.2 EU/dL (Up TO 0.2); pH 5.5 (5-8)
[2018-02-27 10:55] LABS: Epithelial Cells Negative HPF (Negative); RBC 20-50 (0-2); WBC 20-50 HPF (0-5)
[2018-02-27 10:56] LABS: Bacteria Few HPF (Negative); C & S Indicated? Yes; Casts Negative LPF (Negative); Crystals Negative HPF (Negative); Mucus Negative (Negative)
== END 2018-02-27 11:25 | disposition intermediate care facility (04) ==
LOC: ER 12:10
PROVIDERS: Emergency Provider Nurse Practitioner Family; PCP Family Medicine
DX: N39.0 Urinary tract infection, site not specified (principal); Z96.0 Presence of urogenital implants
CPT/HCPCS: 51702; 87077; 99284; 81003; 81015; 87086; 87186

== ENCOUNTER 2018-03-02 19:49 | Inpatient (IN) | payer MEDICARE, MEDICAID, SELFPAY ==
[2018-03-02] VITALS (66 sets, daily range): BP systolic 143–202; BP diastolic 74–109; PULSE 88–106; RESP 11–33; TEMP 36.9–37; O2SAT 86–96
--- NOTE | 2018-03-02 20:04 | DI.RAD_ITS ---
SYMPTOM/DIAGNOSIS: FALL, PAIN PELVIS AND LEFT ;HIP: Comparison 01/22/17. There is an intertrochanteric fracture of the left femur without significant displacement. The left femoral head is seated within the acetabulum. No other acute fracture or dislocation is seen. There is a catheter seen. The tip of the catheter does not appear to lie within the urinary bladder. The tip is seen inferior to the symphysis pubis. Vascular calcifications are seen in the soft tissues. IMPRESSION: 1. Nondisplaced intertrochanteric fracture of the left femur 2. Catheter tip which appears to lie beneath the symphysis pubis suggesting malpositioning. Please correlate clinically.
--- NOTE | 2018-03-02 20:04 | DI.RAD_ITS ---
SYMPTOM/DIAGNOSIS: FALL, PAIN CHEST X-RAY: Portable AP view. Comparison 04/10/17 Heart size and pulmonary vasculature are within normal limits. There is a question of a left basilar infiltrate. The lungs are otherwise clear. No effusions or pneumothoraces are identified. Gas-filled loops of bowel are seen in the upper abdomen. Degenerative changes are seen in the spine. IMPRESSION: Question of a left basilar infiltrate. 2. Gas-filled loops of bowel, ileus vs obstruction. Flat and upright abdomen films should be considered for further evaluation.
--- NOTE | 2018-03-02 20:09 | W.ED.GENAD ---
Discharge Plan Discharge Details Chief Complaint: Orthopedic Primary Care Provider: Helen Mann V ED Provider: Moe Bean Home Meds and New Rx's Prescriptions: No Action citalopram [Celexa] 10 MG tablet 30 mg PO DAILY RF: 0 tamsulosin [Flomax] 0.4 MG capsule 0.4 mg PO DAILY RF: 0 nitroglycerin [Nitrostat] 0.4 MG tablet, sublingual 0.4 mg Sublingual PRN RF: 0 albuterol sulfate [Ventolin HFA] 8 GM HFA aerosol inhaler 1 - 2 puff Inhalation Q4H PRN RF: 0 aspirin [Aspir-81] 81 MG tablet,delayed release (DR/EC) 81 mg PO DAILY RF: 0 multivitamin [Multiple Vitamins] 1 TAB tablet 1 tab PO DAILY Qty: 30 RF: 0 folic acid 1 MG tablet 1 mg PO DAILY Qty: 30 RF: 0 thiamine mononitrate (vit B1) [Vitamin B-1 (mononitrate)] 100 MG tablet 100 mg PO DAILY Qty: 30 RF: 0 tiotropium bromide [Spiriva with HandiHaler] 1 PUFF capsule, w/inhalation device 1 puff Inhalation DAILY Qty: 1 RF: 0 acetaminophen [Pain and Fever] 325 MG tablet 650 mg PO Q4H PRN PRNRF: 0 albuterol sulfate 8.5 GM HFA aerosol inhaler 8.5 gm Inhalation QID PRN (Reason: Shortness Of Breath) Qty: 1 RF: 0 pantoprazole [Protonix] 40 MG tablet,delayed release (DR/EC) 20 mg PO DAILY RF: 0 OxyCODONE [Roxicodone Prepack] 5 MG Tab 5 mg PO Q4H PRN PRNRF: 0 fluticasone-vilanterol [Breo Ellipta] 1 EACH blister with device 1 ea Inhalation DAILY RF: 0 sulfamethoxazole-trimethoprim [Bactrim DS] 800-160 mg tablet 1 tab PO Q12H Qty: 20 RF: 0 clopidogrel [Plavix] 75 MG tablet 75 mg PO DAILY RF: 0 memantine [Namenda] 5 MG tablet 5 mg PO DAILY RF: 0 magnesium hydroxide [Milk of Magnesia] 30 ML suspension 30 ml PO Q6H PRNQty: 0 RF: 0 bisacodyl 10 MG suppository 10 mg [place] PRN PRNRF: 0 docusate sodium [Stool Softener] 100 MG capsule 100 mg PO BID RF: 0 cephalexin [Keflex] 500 mg capsule 500 mg PO TID Qty: 28 RF: 0 Medical Decision Making 77 yo male with hx of dementia who is unable to provide any hx so is obtained from ems and nursing. He apparently had a witness fall from standing at [facility] and rehab and had left hip pain so was sent here. The patient is unable to move the left hip due to pain. HAs no abdominal pain and denies pain elsehwere. Will image his hip to eval for fx. Differential Diagnosis hip fracture, fall, contusion HPI General Mode of arrival: EMS. Date/Time Provider Initiated Documentation: 03/02/18 19:59. Limitations to Documentation: altered mental status (dementia). Information obtained by: EMS. History of Present Illness 77 year old M presents to the emergency department with the chief complaint of left hip pain, described as moderate, with intensity rated at 5. Quality is described as aching, Patient started experiencing this hour(s) (1) and it has been constant. Movement improves symptom(s), Rest worsens symptoms . Patient notes no other symptoms.. Related Data Home Medications Medication Instructions Recorded Confirmed albuterol sulfate [Ventolin HFA] 1 - 2 puff INHALATION Q4H PRN 08/16/12 02/27/18 puff NS citalopram [Celexa] 30 mg PO DAILY tab-cap NS 08/16/12 02/27/18 nitroglycerin [Nitrostat] 0.4 mg SUBLINGUAL PRN NS 08/16/12 02/27/18 tamsulosin [Flomax] 0.4 mg PO DAILY tab-cap NS 08/16/12 02/27/18 aspirin [Aspir-81] 81 mg PO DAILY 11/06/13 02/27/18 folic acid 1 mg PO DAILY #30 tab 05/24/14 02/27/18 multivitamin [Multiple Vitamins] 1 tab PO DAILY #30 tab 05/24/14 02/27/18 thiamine mononitrate (vit B1) 100 mg PO DAILY #30 tab 05/24/14 02/27/18 [Vitamin B-1 (mononitrate)] tiotropium bromide [Spiriva with 1 puff INHALATION DAILY #1 shailesh 05/24/14 02/27/18 HandiHaler] acetaminophen [Pain and Fever] 650 mg PO Q4H PRN PRN 11/04/14 02/27/18 albuterol sulfate 8.5 gm INHALATION QID PRN #1 12/14/14 02/27/18 [email or web address] pantoprazole [Protonix] 20 mg PO DAILY 07/31/15 02/27/18 clopidogrel [Plavix] 75 mg PO DAILY 12/26/16 02/27/18 memantine [Namenda] 5 mg PO DAILY 12/26/16 02/27/18 magnesium hydroxide [Milk of 30 ml PO Q6H PRN #0 01/18/17 02/27/18 Magnesia] bisacodyl 10 mg MA PRN PRN 02/10/17 02/27/18 docusate sodium [Stool Softener] 100 mg PO BID 02/10/17 02/27/18 OxyCODONE [Roxicodone Prepack] 5 mg PO Q4H PRN PRN 07/14/17 02/27/18 fluticasone-vilanterol [Breo 1 ea INHALATION DAILY 11/09/17 02/27/18 Ellipta] cephalexin [Keflex] 500 mg PO TID #28 cap 02/03/18 02/16/18 sulfamethoxazole-trimethoprim 1 tab PO Q12H #20 tab 02/27/18 [Bactrim DS] Previous Rx's Medication Instructions Recorded folic acid 1 mg PO DAILY #30 tab 05/24/14 multivitamin [Multiple Vitamins] 1 tab PO DAILY #30 tab 05/24/14 thiamine mononitrate (vit B1) 100 mg PO DAILY #30 tab 05/24/14 [Vitamin B-1 (mononitrate)] tiotropium bromide [Spiriva with 1 puff INHALATION DAILY #1 shailesh 05/24/14 HandiHaler] albuterol sulfate 8.5 gm INHALATION QID PRN #1 12/14/14 hfa.aer.ad magnesium hydroxide [Milk of 30 ml PO Q6H PRN #0 01/18/17 Magnesia] cephalexin [Keflex] 500 mg PO TID #28 cap 02/03/18 sulfamethoxazole-trimethoprim 1 tab PO Q12H #20 tab 02/27/18 [Bactrim DS] Allergies Allergy/AdvReac Type Severity Reaction Status Date / Time No Known Allergies Allergy Unverified 03/02/18 20:01 General Stated Complaint: Orthopedic JIGAR: 3 Review of Systems Review of Systems Unobtainable due to mental condition PFSH Social History Smoking/Tobacco Use Status: Former Tobacco Use Exam Const General: no acute distress Orientation: alert HENMT Head: normal to inspection Ears: external ears normal General nose exam: external nose normal Mouth: moist mucous membranes Eyes General: appearance normal, both eyes and all related structures Neck Neck: normal visual inspection Resp Effort & Inspection: normal respiratory effort and able to speak in complete sentences Cardio Rate: regular rate Skin General skin exam: no rashes or lesions noted Neuro General: alert Extrem General: normal to inspection Psych Mental Status: mental status grossly normal Course Vital Signs Temperature 36.9 C 03/02/18 19:58 Pulse 88 03/02/18 19:58 Respiratory Rate 18 03/02/18 19:58 Blood Pressure 202/109 H 03/02/18 19:58 Pulse Oximetry 94 L 03/02/18 19:58 Temperature 36.9 C 03/02/18 19:58 Temperature Source Temporal Artery Scan 03/02/18 19:58 Pulse 88 03/02/18 19:58 Respiratory Rate 18 03/02/18 19:58 Respiratory Effort Non-Labored 03/02/18 19:58 Blood Pressure 202/109 H 03/02/18 19:58 Blood Pressure Position Sitting 03/02/18 19:58 Pulse Oximetry 94 L 03/02/18 19:58 Oxygen Delivery Method Room Air 03/02/18 19:58 Oxygen Flow Rate 0 03/02/18 19:58 Pain Level 5 03/02/18 19:58
--- NOTE | 2018-03-02 20:13 | ED.GENADUL_ITS ---
Discharge Plan Discharge Details Chief Complaint: Orthopedic Primary Care Provider: Helen Mann V ED Provider: Moe Bean Home Meds and New Rx's Prescriptions: No Action citalopram [Celexa] 10 MG tablet 30 mg PO DAILY RF: 0 tamsulosin [Flomax] 0.4 MG capsule 0.4 mg PO DAILY RF: 0 nitroglycerin [Nitrostat] 0.4 MG tablet, sublingual 0.4 mg Sublingual PRN RF: 0 albuterol sulfate [Ventolin HFA] 8 GM HFA aerosol inhaler 1 - 2 puff Inhalation Q4H PRN RF: 0 aspirin [Aspir-81] 81 MG tablet,delayed release (DR/EC) 81 mg PO DAILY RF: 0 multivitamin [Multiple Vitamins] 1 TAB tablet 1 tab PO DAILY Qty: 30 RF: 0 folic acid 1 MG tablet 1 mg PO DAILY Qty: 30 RF: 0 thiamine mononitrate (vit B1) [Vitamin B-1 (mononitrate)] 100 MG tablet 100 mg PO DAILY Qty: 30 RF: 0 tiotropium bromide [Spiriva with HandiHaler] 1 PUFF capsule, w/inhalation device 1 puff Inhalation DAILY Qty: 1 RF: 0 acetaminophen [Pain and Fever] 325 MG tablet 650 mg PO Q4H PRN PRNRF: 0 albuterol sulfate 8.5 GM HFA aerosol inhaler 8.5 gm Inhalation QID PRN (Reason: Shortness Of Breath) Qty: 1 RF: 0 pantoprazole [Protonix] 40 MG tablet,delayed release (DR/EC) 20 mg PO DAILY RF: 0 OxyCODONE [Roxicodone Prepack] 5 MG Tab 5 mg PO Q4H PRN PRNRF: 0 fluticasone-vilanterol [Breo Ellipta] 1 EACH blister with device 1 ea Inhalation DAILY RF: 0 sulfamethoxazole-trimethoprim [Bactrim DS] 800-160 mg tablet 1 tab PO Q12H Qty: 20 RF: 0 clopidogrel [Plavix] 75 MG tablet 75 mg PO DAILY RF: 0 memantine [Namenda] 5 MG tablet 5 mg PO DAILY RF: 0 magnesium hydroxide [Milk of Magnesia] 30 ML suspension 30 ml PO Q6H PRNQty: 0 RF: 0 bisacodyl 10 MG suppository 10 mg [place] PRN PRNRF: 0 docusate sodium [Stool Softener] 100 MG capsule 100 mg PO BID RF: 0 cephalexin [Keflex] 500 mg capsule 500 mg PO TID Qty: 28 RF: 0 Medical Decision Making 77 yo male with hx of dementia who is unable to provide any hx so is obtained from ems and nursing. He apparently had a witness fall from standing at [facility] and rehab and had left hip pain so was sent here. The patient is unable to move the left hip due to pain. HAs no abdominal pain and denies pain elsehwere. Will image his hip to eval for fx. Differential Diagnosis hip fracture, fall, contusion HPI General Mode of arrival: EMS . Date/Time Provider Initiated Documentation: 03/02/18 19:59 . Limitations to Documentation: altered mental status (dementia) . Information obtained by: EMS . History of Present Illness 77 year old M presents to the emergency department with the chief complaint of left hip pain, described as moderate, with intensity rated at 5. Quality is described as aching, Patient started experiencing this hour(s) (1) and it has been constant. Movement improves symptom(s), Rest worsens symptoms . Patient notes no other symptoms.. Related Data Home Medications Medication Instructions Recorded Confirmed albuterol sulfate [Ventolin HFA] 1 - 2 puff INHALATION Q4H PRN 08/16/12 02/27/18 puff NS citalopram [Celexa] 30 mg PO DAILY tab-cap NS 08/16/12 02/27/18 nitroglycerin [Nitrostat] 0.4 mg SUBLINGUAL PRN NS 08/16/12 02/27/18 tamsulosin [Flomax] 0.4 mg PO DAILY tab-cap NS 08/16/12 02/27/18 aspirin [Aspir-81] 81 mg PO DAILY 11/06/13 02/27/18 folic acid 1 mg PO DAILY #30 tab 05/24/14 02/27/18 multivitamin [Multiple Vitamins] 1 tab PO DAILY #30 tab 05/24/14 02/27/18 thiamine mononitrate (vit B1) 100 mg PO DAILY #30 tab 05/24/14 02/27/18 [Vitamin B-1 (mononitrate)] tiotropium bromide [Spiriva with 1 puff INHALATION DAILY #1 shailesh 05/24/14 HandiHaler] acetaminophen [Pain and Fever] 650 mg PO Q4H PRN PRN 11/04/14 02/27/18 albuterol sulfate 8.5 gm INHALATION QID PRN #1 12/14/14 02/27/18 hfa.aer.ad pantoprazole [Protonix] 20 mg PO DAILY 07/31/15 02/27/18 clopidogrel [Plavix] 75 mg PO DAILY 12/26/16 02/27/18 memantine [Namenda] 5 mg PO DAILY 12/26/16 02/27/18 magnesium hydroxide [Milk of 30 ml PO Q6H PRN #0 01/18/17 02/27/18 Magnesia] bisacodyl 10 mg [place] PRN PRN 02/10/17 02/27/18 docusate sodium [Stool Softener] 100 mg PO BID 02/10/17 02/27/18 OxyCODONE [Roxicodone Prepack] 5 mg PO Q4H PRN PRN 07/14/17 02/27/18 fluticasone-vilanterol [Breo 1 ea INHALATION DAILY 11/09/17 02/27/18 Ellipta] cephalexin [Keflex] 500 mg PO TID #28 cap 02/03/18 02/16/18 sulfamethoxazole-trimethoprim 1 tab PO Q12H #20 tab 02/27/18 [Bactrim DS] Previous Rx's Medication Instructions Recorded folic acid 1 mg PO DAILY #30 tab 05/24/14 multivitamin [Multiple Vitamins] 1 tab PO DAILY #30 tab 05/24/14 thiamine mononitrate (vit B1) 100 mg PO DAILY #30 tab 05/24/14 [Vitamin B-1 (mononitrate)] tiotropium bromide [Spiriva with 1 puff INHALATION DAILY #1 shailesh 05/24/14 HandiHaler] albuterol sulfate 8.5 gm INHALATION QID PRN #1 12/14/14 hfa.aer.ad magnesium hydroxide [Milk of 30 ml PO Q6H PRN #0 01/18/17 Magnesia] cephalexin [Keflex] 500 mg PO TID #28 cap 02/03/18 sulfamethoxazole-trimethoprim 1 tab PO Q12H #20 tab 02/27/18 [Bactrim DS] Allergies Allergy/AdvReac Type Severity Reaction Status Date / Time No Known Allergies Allergy Unverified 03/02/18 20:01 General Stated Complaint: Orthopedic JIGAR: 3 Review of Systems Review of Systems Unobtainable due to mental condition PFSH Social History Smoking/Tobacco Use Status: Former Tobacco Use Exam Const General: no acute distress Orientation: alert HENMT Head: normal to inspection Ears: external ears normal General nose exam: external nose normal Mouth: moist mucous membranes Eyes General: appearance normal, both eyes and all related structures Neck Neck: normal visual inspection Resp Effort & Inspection: normal respiratory effort and able to speak in complete sentences Cardio Rate: regular rate Skin General skin exam: no rashes or lesions noted Neuro General: alert Extrem General: normal to inspection Psych Mental Status: mental status grossly normal Course Vital Signs Temperature 36.9 C 03/02/18 19:58 Pulse 88 03/02/18 19:58 Respiratory Rate 18 03/02/18 19:58 Blood Pressure 202/109 H 03/02/18 19:58 Pulse Oximetry 94 L 03/02/18 19:58 Temperature 36.9 C 03/02/18 19:58 Temperature Source Temporal Artery Scan 03/02/18 19:58 Pulse 88 03/02/18 19:58 Respiratory Rate 18 03/02/18 19:58 Respiratory Effort Non-Labored 03/02/18 19:58 Blood Pressure 202/109 H 03/02/18 19:58 Blood Pressure Position Sitting 03/02/18 19:58 Pulse Oximetry 94 L 03/02/18 19:58 Oxygen Delivery Method Room Air 03/02/18 19:58 Oxygen Flow Rate 0 03/02/18 19:58 Pain Level 5 03/02/18 19:58
[2018-03-02] MEDS: fentaNYL 100 MCG/2 ML VIAL IVP ×2 (20:23→23:03)
[2018-03-02 20:40] LABS: PTT Activated 26.2 sec (21.0-31.4); Prothrombin Time 9.9 sec (9.3-10.8)
[2018-03-02 20:51] LABS: ALT 17 U/L (12-78); AST 17 U/L (15-37); Albumin 3.8 g/dL (3.4-5.0); Alkaline Phosphatase 100 U/L (46-116); Anion Gap 12.2 mmol/L (3-11); BUN 26 mg/dL (7-18); Bilirubin, Total 0.2 mg/dL (0.2-1.0); CO2 25.8 mmol/L (21.0-32.0); CREATININE 2.08 mg/dL (0.70-1.30); Calcium 9.3 mg/dL (8.5-10.1); Chloride 102 mmol/L (98-107); Estimated GFR 31.29 (mL/min/1.73m2); Glucose 119 mg/dL (70-100); Potassium 4.3 mmol/L (3.5-5.1); Sodium 140 mmol/L (136-145); Total Protein 8.4 g/dL (6.4-8.2)
[2018-03-02 20:55] LABS: Abs Immature Grans 0.06 k/cumm (0.0-0.09); Absolute Basophil Count 0.03 k/cumm (0.0-0.2); Absolute Eosinophil Count 0.04 k/cumm (0.0-0.7); Absolute Lymphocyte Count 1.98 k/cumm (1.2-3.4); Absolute Monocyte Count 1.38 k/cumm (0.11-0.7); Absolute Neutrophil Count 7.55 k/cumm (1.2-6.7); Basophils % 0.3; Eosinophils % 0.4; HCT 39.7 % (40.0-50.0); HGB 12.3 g/dL (13.5-17.5); Immature Grans % 0.5; Lymphocytes % 17.9; Mean Corpuscular Hemoglobin 25.6 pg (27.0-33.0); Mean Corpuscular Volume 82.7 fL (80-95); Mean Platelet Volume 11.3 fL (8.0-11.0); Monocytes % 12.5; Neutrophils % 68.4; Platelet Count 268 x1000/uL (130-400); RBC Distribution Width 18.9 % (11.8-14.1); White Blood Cell Count 11.04 k/cumm (4.4-10.8)
[2018-03-02 20:57] LABS: Troponin I < 0.02 ng/mL (0.00-0.06)
[2018-03-02 21:08] LABS: Diff Comment Agrees w/ Instrument
--- NOTE | 2018-03-02 21:38 | DI.VRAD_ITS ---
EXAM: XR Left Hip with Pelvis when Performed, 2 or 3 Views EXAM DATE/TIME: 03/02/2018 8:07 PM CLINICAL HISTORY: 77 years old, male; Pain; Hip pain; Left hip; Patient HX: Fall, pain; Additional info: PT unable to answer questions or follow instructions TECHNIQUE: XR Left hip with pelvis when performed, 2 or 3 views COMPARISON: No relevant prior studies available. FINDINGS: Bones/joints: Skeletal degenerative changes are seen. No evidence of dislocation. There appears to be a comminuted fracture in the proximal left femur at the level of the greater trochanter. A lucency extends medially, worrisome for an intertrochanteric component. If indicated, this can be further evaluated with CT. Several ossific densities are seen overlying the proximal right femur which could represent the sequela of old trauma or heterotopic bone. Evaluation of the sacrum is limited secondary to penetration. Soft tissues: There are vascular calcifications. Gastrointestinal tract: There is a significant amount of stool in the right colon and rectum which can be seen with constipation. Other findings: A catheter is identified inferior to the symphysis pubis. If this corresponds to a Mackay catheter, the tip does not overlie the pelvis/expected location of the urinary bladder. Correlation with concern for malpositioning suggested. IMPRESSION: 1. There appears to be a comminuted fracture in the proximal left femur at the level of the greater trochanter. A lucency extends medially, worrisome for an intertrochanteric component. If indicated, this can be further evaluated with CT. 2. Significant amount of stool in the right colon which can be seen with constipation. 3.A catheter is identified inferior to the symphysis pubis. If this corresponds to a Mackay catheter, the tip does not overlie the pelvis/expected location of the urinary bladder. Correlation with concern for malpositioning suggested. Other findings as above. Dictated and Authenticated by: Ciarra Duarte MD. Ordering:RAMSES JENSEN MD
--- NOTE | 2018-03-02 21:39 | DI.VRAD_ITS ---
EXAM: XR Chest, 1 View EXAM DATE/TIME: 03/02/2018 8:07 PM CLINICAL HISTORY: 77 years old, male; Injury or trauma; Fall; Initial encounter; Blunt trauma (contusions or hematomas); Patient HX: Fall, pain; Additional info: PT unable to answer questions or follow instructions TECHNIQUE: XR of the chest, 1 view. COMPARISON: CR PORTABLE CHEST ONE VIEW 11/09/2017 1:24 PM FINDINGS: Lungs: There are left retrocardiac opacities that could represent atelectasis or infection. Pleural space: No pneumothorax. Heart/Mediastinum: Cardiomediastinal contours are unchanged from prior examination. Vascular calcifications are seen. Upper abdomen: There are dilated gas filled loops of bowel in the upper abdomen measuring up to 7.7 cm. Obstructive process is not excluded. Dedicated abdominal radiographs or cross-sectional imaging could be considered. Bones/joints: Skeletal degenerative changes. Other findings: Calcified right axillary lymph nodes are seen. IMPRESSION: 1. Left retrocardiac opacities that could represent atelectasis or infection. 2.There are dilated gas filled loops of bowel in the upper abdomen measuring up to 7.7 cm. Obstructive process is not excluded. Dedicated abdominal radiographs or cross-sectional imaging could be considered. Other findings as above. Dictated and Authenticated by: Ciarra Duarte MD. Ordering:RAMSES JENSEN MD
--- NOTE | 2018-03-02 21:43 | DI.CT_ITS ---
SYMPTOM/DIAGNOSIS: LEFT HIP PAIN, DILATED LOOPS OF BOWEL ON CXR CT ABDOMEN AND PELVIS: CT scan of the abdomen and pelvis was performed without intravenous contrast material. Comparison examination is 03/12/17. Bilateral basilar infiltrates are seen. This may represent atelectasis or pneumonia. The lack of IV contrast does limit evaluation of the abdominal and pelvic organs. The unenhanced liver, gallbladder, bile ducts are unremarkable as are the adrenal glands. Calcified splenic granuloma are seen. The pancreas appears atrophic. There are calcifications seen in renal leah bilaterally. These may represent vascular calcifications but several appeared to represent nonobstructing stones. There is again seen a cyst in the lower pole of the right kidney. There is a Mackay catheter in the urinary bladder which is decompressed limiting evaluation of the wall. The prostate gland appears enlarged. There is diverticulosis of the colon but no evidence of acute diverticulitis. There is prominent distension of the rectum up to 8.8 cm. There is a moderate amount of stool seen throughout the colon. No findings to suggest acute appendicitis are present. Normal appendix is seen in the right lower quadrant. No definite evidence of obstruction is appreciated. 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 This was present on the prior examination. There is dilatation at the bypass femoral artery anastomoses. this was present on prior examinations but the areas of dilatation appear increased compared to the prior examination. No significant abdominal or pelvic adenopathy, ascites or pneumoperitoneum is seen. Degenerative changes are present throughout the spine. There is a comminuted intertrochanteric fracture of the left femur. There has been loss of the normal femoral angle. The degree of displacement of the fracture has increased since the x-ray of the hip from earlier in the day. No other acute fractures are present. IMPRESSION: 1. Acute left comminuted intertrochanteric fracture with worsening angulation of the fracture site. 2. No evidence of bowel obstruction. Large amount of stool seen particularly in the rectal vault. 3. Dilatation of the distal anastomoses of the aorta bi-fem bypass since the prior examination. Ultrasound may be considered for further evaluation.
--- NOTE | 2018-03-02 22:41 | DI.VRAD_ITS ---
EXAM: CT Abdomen and Pelvis Without Contrast EXAM DATE/TIME: 03/02/2018 9:44 PM CLINICAL HISTORY: 77 years old, male; Injury or trauma; Fall; Initial encounter; Blunt; Injury details: PT fell; L hip FX, sent trauma per provider request; Patient HX: Left hip pain from fall; Dilated loops of bowel on cxr TECHNIQUE: Axial computed tomography images of the abdomen and pelvis without contrast. Coronal and sagittal reformatted images were created and reviewed. COMPARISON: CT PELVIC/LOWER ABD WITHOUT CONT 01/16/2017 5:28 AM FINDINGS: Limitations: Evaluation of the intra-abdominal organs and vasculature is limited secondary to the lack of IV contrast. Evaluation of the bowel is limited secondary to the lack of oral contrast. Lower thorax: There are bibasilar opacities that could represent atelectasis or infection. Gas is noted in the distal esophagus which can be seen with reflux. ABDOMEN: Liver: Normal. No mass. Gallbladder and bile ducts: Normal. No calcified stones. No ductal dilation. Pancreas: Atrophic pancreas. Spleen: Calcifications in the spleen suggestive of old granulomatous disease. Adrenals: Normal adrenal glands. Kidneys and ureters: Nonobstructive calcifications overlying each kidney, several of which may be vascular. No hydronephrosis. There is a 1.8 cm cystic structure identified in the lower pole of the right kidney. Stomach and bowel: There is no small bowel dilation. The colon is very tortuous in appearance and difficult to follow. There is a considerable amount of stool in the right colon which can be seen with constipation. The rectum is dilated with stool measuring 8.8 cm.. There is mild gaseous dilation of the transverse colon measuring 7.3 cm. The descending colon is more normal in caliber. Given the lack of oral contrast, lesions contributing to these caliber changes can't be excluded. Scattered diverticula are seen. Appendix: Normal appendix. PELVIS: Bladder: A Mackay catheter is identified within the urinary bladder. Calcifications are noted within the prostate. There is urinary bladder wall thickening. This can be seen with infection, under distention, or pathology. Reproductive: See Bladder Finding. ABDOMEN and PELVIS: Intraperitoneal space: Normal. No free air. No significant fluid collection. Bones/joints: Skeletal degenerative changes. There is an acute left comminuted intertrochanteric hip fracture with corresponding angulation. No dislocation identified. There are skeletal degenerative changes. Bony structures are noted in the region of the right hip which may represent the sequela of older trauma or heterotopic bone. Soft tissues: Unremarkable. 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 A stent is noted within the right branch of this bypass. Near the groin region, there is abnormal soft tissue density, left greater than right, worrisome for aneurysms. This measures 2.5 cm on the right (series 5 image 77) and 4.4 cm on the left (series 5 image 72). Pseudoaneurysms are not excluded. Ultrasound could be considered. Lymph nodes: Normal. No enlarged lymph nodes. IMPRESSION: 1.There is an acute left comminuted intertrochanteric hip fracture with corresponding angulation. 2. 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 Near the groin region, there is abnormal soft tissue density, left greater than right, worrisome for aneurysms. Pseudoaneurysms would be difficult to exclude. These appear increased when compared to study dated 01/16/2017. Ultrasound could be considered. 3. No evidence of small bowel obstruction. There is a considerable amount of stool in the right colon which can be seen with constipation. The rectum is dilated with stool measuring 8.8 cm. There is mild gaseous dilation of the transverse colon measuring 7.3 cm. The descending colon is more normal in caliber. Given the lack of oral contrast, lesions contributing to these caliber changes can't be excluded. 4. Mackay catheter with tip in the urinary bladder. There is urinary bladder wall thickening. This can be seen with infection, under distention, or pathology. 5. Other findings as above. THIS REPORT CONTAINS FINDINGS THAT MAY BE CRITICAL TO PATIENT CARE. The findings were verbally communicated via telephone conference with Moe Bean at 10:33 PM EST on 03/02/2018. The findings were acknowledged and understood. Dictated and Authenticated by: Ciarra Duarte MD. Ordering:RAMSES JENSEN MD
--- NOTE | 2018-03-02 23:32 | HPE_ITS ---
Date of service: 03/02/18 Time of Service: 23:24 Assessment and Plan (1) Closed comminuted intertrochanteric fracture of left femur: Current visit: No Status: Acute consult Dr. Hunter (notified by Dr. Bean in the ER); keep NPO for probable surgery tomorrow (assuming that we can get a reliable family member to sign his consent as the patient appears to have dementia; hydrate w/ LR iv fluids for his HAKEEM; monitior urine output and electrolytes and BUN, creatinine. check abdominal US to assess his AAA, if no sign of dissection/expanding aneurysm then proceed w/ surgery for his hip w/ caution. patient remains high surgical risk d/t his multiple co-morbidities. Give parenteral analgesics/antiemetics (2) Urinary retention: Current visit: No Status: Acute continue del toro for now; when able to take PO then resume Flomax at incr. dose; consider urology consult (3) Acute kidney injury (nontraumatic): Current visit: No Status: Acute hydration and del toro for alleviation of acute obstructive uropathy (4) COPD (chronic obstructive pulmonary disease): Current visit: No Status: Chronic continue his maintenance inhalers and use albuterol updraft prn (5) CAD (coronary artery disease): Current visit: No Status: Chronic no active symptoms of ischemia however difficult to determine as he is aphasic, however, he has no acute EKG changes and first troponin is negative. I will repeat second troponin but if also negative then no further evaluation is warranted. Otherwise continue his metoprolol tartrate but hold Plavix for now. If ortho will allow I would continue his ASA for his CAD. I will put him on telemetry so we can give him iv lopressor while he is NPO (6) PUD (peptic ulcer disease): Current visit: No Status: Chronic give parenteral PPI until able to take po (7) AAA (abdominal aortic aneurysm): Current visit: No Status: Chronic assess state of his AAA w/ abdominal U.S. in the a.m. since he can not have contrast d/t HAKEEM (8) Constipation: Current visit: No Status: Acute treat w/ dulcolax suppository for tonight but if no BM overnight then proceed w/ enema and disimpaction (9) Pseudomonas urinary tract infection: Current visit: No Status: Acute repeat urine culture and treatment w/ Zosyn pending urine culture results (10) Alzheimer's type dementia: Current visit: No Status: Chronic continue his Namenda for now History of Present Illness Chief Complaint: Left hip pain status post fall, comminuted left hip fracture Narrative: 77-year-old male who is a resident of [facility] who had a witnessed fall this evening not associated with loss of consciousness and immediately afterward experienced left hip pain and inability to ambulate on his left leg. Patient was evaluated in the emergency room by Dr. Moe Bean and x-ray of his left hip demonstrated a displaced comminuted left intertrochanteric femur fracture. Labs also demonstrated evidence for acute renal insufficiency with an elevated BUN of 26 and a creatinine of 2.08 but with normal electrolytes. Furthermore CBC showed an elevated white count of 11,000. Patient was recently started on Keflex and Bactrim for UTI. Recent urine culture obtain from a recent emergency room visit on March 02, 2018 is growing [address]omonas aeruginosa[address] Bean ordered an abdominal and pelvic CT exam as well as a chest x-ray. CT examination of the abdomen and pelvis without contrast confirmed the acute left comminuted intertrochanteric hip fracture but also demonstrates postsurgical changes to the aorta consistent with previous aortobifemoral bypass. However near the groin region there is an abnormal soft tissue density worrisome for aneurysm. CT the abdomen did not show any small bowel obstruction but showed a large amount of constipation with a dilated rectum with stool measuring 8.8 cm and gaseous dilatation of the transverse colon measuring 7.3 cm. Urinary bladder wall is thickened and the tip of the Del Toro was within the urinary bladder. Urine culture was sent and the patient has been started Zosyn for t reatment of Pseudomonas UTI. Dr. Hunter, orthopedic surgeon supervisor scrap preparation, was notified by Dr. Bean regarding the patient's hip fracture. Because a CT scan of the abdomen and pelvis suggested aneurysmal dilatation in the left groin and a pseudoaneurysm versus aneurysm could not be excluded an abdominal ultrasound was recommended. Patient is now admitted for surgical repair of his left femoral fracture once his aneurysm is evaluated with an ultrasound. Troponin I level on admission was within normal limits and his admission EKG showed no acute ischemic changes but demonstrated sinus tachycardia. Past medical history is significant for coronary artery disease, stroke with a fascia, hypertension, abdominal aortic aneurysm with stenting, bilateral femoral artery aneurysm, peripheral arterial vascular disease, COPD, BPH with urinary retention, recurrent UTIs. Review of Systems Review of Systems Unobtainable due to (Unobtainable secondary to a aphasia) [facility] Social History Smoking/Tobacco Use Status: Former Tobacco Use Meds Home Medications Medication Instructions Recorded Confirmed Type Ventolin HFA 1 - 2 puff INHALATION Q4H PRN 08/16/12 03/24/18 History puff NS citalopram [Celexa] 20 mg PO DAILY tab-cap NS 08/16/12 03/24/18 History nitroglycerin [Nitrostat] 0.4 mg SUBLINGUAL PRN NS 08/16/12 03/24/18 History tamsulosin [Flomax] 0.4 mg PO DAILY tab-cap NS 08/16/12 03/24/18 History aspirin [Aspir-81] 81 mg PO DAILY 11/06/13 03/24/18 History Spiriva with HandiHaler 1 puff INHALATION DAILY #1 shailesh 05/24/14 03/24/18 Rx folic acid 1 mg PO DAILY #30 tab 05/24/14 03/24/18 Rx multivitamin [Multiple Vitamins] 1 tab PO DAILY #30 tab 05/24/14 03/24/18 Rx thiamine mononitrate (vit B1) 100 mg PO DAILY #30 tab 05/24/14 03/24/18 Rx [Vitamin B-1 (mononitrate)] acetaminophen [Pain and Fever] 650 mg PO Q4H PRN PRN 11/04/14 03/24/18 History pantoprazole [Protonix] 20 mg PO DAILY 07/31/15 03/24/18 History clopidogrel [Plavix] 75 mg PO DAILY 12/26/16 03/24/18 History memantine [Namenda] 5 mg PO DAILY 12/26/16 03/24/18 History magnesium hydroxide [Milk of 30 ml PO Q6H PRN #0 01/18/17 03/24/18 Rx Magnesia] bisacodyl 10 mg MI PRN PRN 02/10/17 03/24/18 History docusate sodium [Stool Softener] 100 mg PO BID 02/10/17 03/24/18 History OxyCODONE [Roxicodone Prepack] 5 mg PO Q4H PRN PRN 07/14/17 03/24/18 History Breo Ellipta 1 ea INHALATION DAILY 11/09/17 03/24/18 History metoprolol tartrate 12.5 mg PO BID 03/02/18 03/24/18 History polyethylene glycol 3350 17 g PO DAILY PRN PRN #1 ea 03/05/18 03/24/18 Rx Allergies Allergy/AdvReac Type Severity Reaction Status Date / Time No Known Allergies Allergy Unverified 03/20/18 20:40 Exam Const General: cooperative and no acute distress Nutritional Appearance: average body habitus Orientation: alert, awake and other (Unable to assess orientation as the patient is aphasic. However he seems t) [facility] Head: normal to inspection, no palpable skull fracture, normocephalic and atraumatic Ears: hearing grossly normal bilaterally General nose exam: external nose normal and nares normal Face and sinus: normal facial exam and face symmetric Eyes General: appearance normal, both eyes and all related structures Visual Martinez: normal visual martinez by confrontation Alignment and Position: alignment normal Eyelids: eyelids normal Sclera: sclerae normal Cornea: corneas normal Pupils: PERRL EOM: EOM intact bilaterally Neck Neck: normal visual inspection, full ROM, no lymphadenopathy and trachea midline Thyroid: thyroid normal Carotids: normal carotid upstroke Lymphatic: no lymphadenopathy noted Chest Chest: normal inspection of the chest and normal palpation of entire chest wall Resp Effort & Inspection: normal respiratory effort Auscultation: clear to auscultation bilaterally Cardio Jugular venous pressure: no JVD Palpation: normal PMI Rate: regular rate Rhythm: regular rhythm Heart Sounds: S1 normal, S2 normal, normal, physiologic split S2 and murmur systolic early, soft, II/ and at the base Bruits: no carotid bruits Pulses: femoral pulses present on the right 3+ and on the left 4+ and other (Palpable aneurysm), popliteal pulses present bilaterally 2+, posterior tibial pulses present on the left dopplerable; not on the right and dorsalis pedis pulses present bilaterally dopplerable GI Inspection: scaphoid and scar (Surgical scars over the right lower abdomen.) Palpation: soft Percussion: normal to percussion Auscultation: normal bowel sounds General: No CVA tenderness Back/Spine/Pelvis Back: no CVA tenderness Cervical Spine: normal cervical lordosis Thoracic/Lumbar Spine: thoracic and lumbar spine normal to inspection Skin General skin exam: no rashes or lesions noted Neuro General: alert, awake, moves all extremities and no focal motor deficits Cognition: normal cognition (he seems to nod yes and no appropriately and seems to follow simple command) Speech: expressive aphasia Motor: muscle tone normal throughout and strength 5/5 throughout (unable to assess left leg strength d/t hip fracture) Sensory Exam: no sensory deficits noted Extrem General: no clubbing, cyanosis or edema Results Imaging Chest x-ray: report reviewed (IMPRESSION: 1. Left retrocardiac opacities that could represent atelectasis or infection. 2.There are dilated gas filled loops of bowel in the upper abdomen measuring up to 7.7 cm. Obstructive process is not excluded. Dedicated abdominal radiographs or cross-sectional imaging could be considered.) Abdomen CT scan report/results: report reviewed (IMPRESSION: 1.There is an acute left comminuted intertrochanteric hip fracture with corresponding angulation. 2. 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 Near the groin region, there is abnormal soft tissue density, left greater than right, worriso) Additional studies: XR L. hip: IMPRESSION: 1. There appears to be a comminuted fracture in the proximal left femur at the level of the greater trochanter. A lucency extends medially, worrisome for an intertrochanteric component. If indicated, this can be further evaluated with CT. 2. Significant amount of stool in the right colon which can be seen with constipation. 3.A catheter is identified inferior to the symphysis pubis. If this corresponds to a Del Toro catheter, the tip does not overlie the pelvis/expected location of the urinary bladder. Correlation with concern for malpositioning suggested. Other findings as above. Dictated and Authenticated by: Ciarra Duarte MD. EKG: image reviewed (sinus tachycardia at ventricular rate of [address]pm. no acute ischemic ST-T changes seen. inferior q waves, can not exclude prior inferior wall MA) Labs : 03/05/18 07:00 03/05/18 07:00 Laboratory Results - last 24 hr 03/02/18 03/02/18 03/02/18 20:15 20:15 20:15 WBC 11.04 H RBC 4.80 Hgb 12.3 L Hct 39.7 L MCV 82.7 MCH 25.6 L MCHC 31.0 L RDW 18.9 H Plt Count 268 MPV 11.3 H Immature Gran % 0.5 Neutrophils % 68.4 Lymphocytes % 17.9 Monocytes % 12.5 Eosinophils % 0.4 Basophils % 0.3 Absolute Neutrophils 7.55 H Absolute Lymphocytes 1.98 Absolute Monocytes 1.38 H Absolute Eosinophils 0.04 Absolute Basophils 0.03 Differential Comment Agrees w/ instrument PT INR APTT Sodium 140 Potassium 4.3 Chloride 102 Carbon Dioxide 25.8 Anion Gap 12.2 H BUN 26 H Creatinine 2.08 H Estimated GFR/1.73 m2 31.29 Glucose 119 H Calcium 9.3 Total Bilirubin 0.2 AST 17 ALT 17 Alkaline Phosphatase 100 Troponin I < 0.02 Total Protein 8.4 H Albumin 3.8 03/02/18 20:15 WBC RBC Hgb Hct MCV MCH MCHC RDW Plt Count MPV Immature Gran % Neutrophils % Lymphocytes % Monocytes % Eosinophils % Basophils % Absolute Neutrophils Absolute Lymphocytes Absolute Monocytes Absolute Eosinophils Absolute Basophils Differential Comment PT 9.9 INR 1.0 APTT 26.2 Sodium Potassium Chloride Carbon Dioxide Anion Gap BUN Creatinine Estimated GFR/1.73 m2 Glucose Calcium Total Bilirubin AST ALT Alkaline Phosphatase Troponin I Total Protein Albumin Last Vital Signs Temp 37 C 03/02/18 23:04 Pulse 105 H 03/02/18 23:04 Resp 14 03/02/18 23:04 BP 151/74 H 03/02/18 23:04 Pulse Ox 91 L 03/02/18 23:04
[2018-03-03] VITALS (25 sets, daily range): BP systolic 110–178; BP diastolic 58–89; PULSE 99–134; RESP 12–25; TEMP 35.8–37.6; O2SAT 88–100
[2018-03-03] MEDS: Normal Saline Flush 10 ML SYR IVP ×4 (00:47→19:15)
[2018-03-03] MEDS: Pantoprazole 40 MG VIAL IVP ×2 (00:47→11:30)
[2018-03-03] MEDS: Lactated Ringers 1,000 ML 100 ML IV (00:47)
[2018-03-03] MEDS: SODIUM CHLORIDE 0.45% 1,000 ML 125 ML IV ×2 (01:24→09:20)
[2018-03-03 01:54] LABS: Bilirubin Negative (Negative); Blood Large (Negative); Clarity Cloudy; Glucose Negative (Negative); Ketones Trace mg/dL (Negative); Leukocyte Esterase Large (Negative); Nitrite Negative (Negative); Specific Gravity 1.025 (1.005-1.025); Urobilinogen 0.2 EU/dL (Up TO 0.2); pH 5.5 (5-8)
[2018-03-03 02:03] LABS: C & S Indicated? Yes
[2018-03-03] MEDS: PIPERACILLIN/TAZO 4.5 GM in Normal Saline 100 ML IVPB (02:12)
[2018-03-03] MEDS: Bisacodyl 10 MG SUPP PR (02:14)
[2018-03-03 07:22] LABS: BUN 26 mg/dL (7-18); CREATININE 1.88 mg/dL (0.70-1.30); Calcium 8.7 mg/dL (8.5-10.1); Chloride 104 mmol/L (98-107); Estimated GFR 35.16 (mL/min/1.73m2); Glucose 124 mg/dL (70-100); Magnesium 2.1 mg/dL (1.8-2.4); Potassium 4.3 mmol/L (3.5-5.1); Sodium 143 mmol/L (136-145)
[2018-03-03 07:47] LABS: Troponin I < 0.02 ng/mL (0.00-0.06)
[2018-03-03] MEDS: Metoprolol 5 MG/5 ML VIAL IVP (08:28)
--- NOTE | 2018-03-03 08:43 | OCONE_ITS ---
Date of service: 03/03/18 Time of Service: 08:37 History of Present Illness Chief Complaint: Fractured left hip Narrative: Patient resides at [facility] rehab he has a chronic indwelling Mackay catheter. He has dementia he responds to questions but cannot give any meaningful history. He is currently lying with hip both hips flexed 90degrees he has a history of atrial fibrillation on aspirin and Plavix. He has no family member with him at the present time Assessment and Plan (1) Closed left hip fracture: Current visit: Yes Status: Acute Patient has a left intertrochanteric hip from sure which is somewhat impacted this is allowing him to lie supine and keep his hip flex normally most patients would not allow this to happen. He is dropped his hemoglobin from 12.3-9.8. Some of this may be due to rehydration. He has issues with chronic renal failure, chronic constipation and chronic indwelling Mackay catheter as well as dementia. I would recommend open reduction internal fixation with a compression hip screw. This will have to be performed when we are able to get a consent. He also has significant comorbidities of a triple aortic abdominal aneurysm and rate and atrial fibrillation on aspirin and Plavix. This will increase his risk for bleeding. I will discussed with dialysis social worker whether or not we can obtain consent by family members and also discussed the case with the hospitalist. The patient is currently on telemetry. His blood pressure was elevated to 178 earlier this morning that she he has gotten some metoprolol and it has dropped down somewhat. He was also tachycardic. [facility] Social History Smoking/Tobacco Use Status: Former Tobacco Use Exam Extrem Other: Patient has a left intertrochanteric hip fracture which has some degree of impaction. It is visible both on the plain x-rays as well as a CT scan. It something that should be stabilized and to allow him for bed to chair transfers. Results Last Vital Signs Temp 97.3 F L 03/03/18 04:00 Pulse 111 H 03/03/18 08:30 Resp 20 03/03/18 04:00 BP 140/89 03/03/18 08:28 Pulse Ox 91 L 03/03/18 04:00 Labs : 03/03/18 06:53 03/03/18 06:53 Laboratory Results - last 24 hr 03/02/18 03/02/18 03/02/18 20:15 20:15 20:15 WBC 11.04 H RBC 4.80 Hgb 12.3 L Hct 39.7 L MCV 82.7 MCH 25.6 L MCHC 31.0 L RDW 18.9 H Plt Count 268 MPV 11.3 H Immature Gran % 0.5 Neutrophils % 68.4 Lymphocytes % 17.9 Monocytes % 12.5 Eosinophils % 0.4 Basophils % 0.3 Absolute Neutrophils 7.55 H Absolute Lymphocytes 1.98 Absolute Monocytes 1.38 H Absolute Eosinophils 0.04 Absolute Basophils 0.03 Differential Comment Agrees w/ instrument PT INR APTT Sodium 140 Potassium 4.3 Chloride 102 Carbon Dioxide 25.8 Anion Gap 12.2 H BUN 26 H Creatinine 2.08 H Estimated GFR/1.73 m2 31.29 Glucose 119 H Calcium 9.3 Magnesium Total Bilirubin 0.2 AST 17 ALT 17 Alkaline Phosphatase 100 Troponin I < 0.02 Total Protein 8.4 H Albumin 3.8 Urine Color Urine Clarity Urine pH Ur Specific [place] Urine Protein Urine Ketones Urine Blood Urine Nitrite Urine Bilirubin Urine Urobilinogen Ur Leukocyte Esterase Urine RBC Urine WBC Ur Epithelial Cells Urine Crystals Urine Bacteria Urine Mucus Ur Culture Indicated? Urine Glucose 03/02/18 03/03/18 03/03/18 20:15 01:30 06:53 WBC RBC Hgb Hct MCV MCH MCHC RDW Plt Count MPV Immature Gran % Neutrophils % Lymphocytes % Monocytes % Eosinophils % Basophils % Absolute Neutrophils Absolute Lymphocytes Absolute Monocytes Absolute Eosinophils Absolute Basophils Differential Comment PT 9.9 INR 1.0 APTT 26.2 Sodium 143 Potassium 4.3 Chloride 104 Carbon Dioxide 25.0 Anion Gap 14.0 H BUN 26 H Creatinine 1.88 H Estimated GFR/1.73 m2 35.16 Glucose 124 H Calcium 8.7 Magnesium 2.1 Total Bilirubin AST ALT Alkaline Phosphatase Troponin I < 0.02 Total Protein Albumin Urine Color Yellow Urine Clarity Cloudy Urine pH 5.5 Ur Specific [place] 1.025 Urine Protein 100 H Urine Ketones Trace H Urine Blood Large H Urine Nitrite Negative Urine Bilirubin Negative Urine Urobilinogen 0.2 Ur Leukocyte Esterase Large H Urine RBC Not Applicable Urine WBC Ur Epithelial Cells Not Applicable Urine Crystals Not Applicable Urine Bacteria Not Applicable Urine Mucus Not Applicable Ur Culture Indicated? Yes Urine Glucose Negative 03/03/18 06:53 WBC 11.67 H RBC 3.82 L Hgb 9.8 L D Hct 32.7 L MCV 85.6 MCH 25.7 L MCHC 30.0 L RDW 18.8 H Plt Count 238 MPV 11.7 H Immature Gran % 0.3 Neutrophils % 73.3 Lymphocytes % 15.1 Monocytes % 11.1 Eosinophils % 0.0 Basophils % 0.2 Absolute Neutrophils 8.55 H Absolute Lymphocytes 1.76 Absolute Monocytes 1.30 H Absolute Eosinophils 0.00 Absolute Basophils 0.02 Differential Comment PT INR APTT Sodium Potassium Chloride Carbon Dioxide Anion Gap BUN Creatinine Estimated GFR/1.73 m2 Glucose Calcium Magnesium Total Bilirubin AST ALT Alkaline Phosphatase Troponin I Total Protein Albumin Urine Color Urine Clarity Urine pH Ur Specific [place] Urine Protein Urine Ketones Urine Blood Urine Nitrite Urine Bilirubin Urine Urobilinogen Ur Leukocyte Esterase Urine RBC Urine WBC Ur Epithelial Cells Urine Crystals Urine Bacteria Urine Mucus Ur Culture Indicated? Urine Glucose
[2018-03-03] MEDS: Mineral Oil-Enema 133 ML BTL PR (09:13)
--- NOTE | 2018-03-03 10:03 | DI.US_ITS ---
SYMPTOMS/DIAGNOSIS: ASSESS LEFT FEMORAL ARTERY FOR SUSPECTED ANEURYSM, ? DISSECTION LEFT INGUINAL ULTRASOUND: Sonographic evaluation of the left inguinal vessels was performed. There is aneurysmal dilatation seen in the left inguinal region at the region of the left bypass femoral artery anastomosis. There is internal arterial blood flow present. It communicates with the left femoral artery. This has been seen on prior examinations, but appears to have increased in size when comparing the CT scans from 03/02/18 to 03/12/17. The may represent a pseudoaneurysm. There is a small area of arterial flow seen at the posterior aspect of the aneurysm. This may represent an arterial branch. Dissection cannot be excluded. The adjacent left femoral vein was visualized and shows normal venous waveform. No findings to suggest an arteriovenous fistula in this region are seen. IMPRESSION: 1. Aneurysmal dilatation seen at the graft arterial bypass junction in the left inguinal region. 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 This was present on prior examinations, but has shown slight increase in size. 2. Area of arterial flow at the posterior aspect of the aneurysmal dilatation. This may represent an arterial branch. Arterial injury cannot be excluded. CT angiography of the left lower extremity is recommended for further evaluation.
[2018-03-03 10:44] LABS: Abs Immature Grans 0.04 k/cumm (0.0-0.09); Absolute Eosinophil Count 0.02 k/cumm (0.0-0.7); Absolute Monocyte Count 1.39 k/cumm (0.11-0.7); Basophils % 0.2; Eosinophils % 0.2; HCT 37.6 % (40.0-50.0); Immature Grans % 0.3; Lymphocytes % 25.9; Mean Corp. HGB Concentration 30.3 g/dL (32.0-36.0); Mean Corpuscular Hemoglobin 25.6 pg (27.0-33.0); Mean Corpuscular Volume 84.3 fL (80-95); Mean Platelet Volume 12.2 fL (8.0-11.0); Monocytes % 11.4; Platelet Count 268 x1000/uL (130-400); RBC 4.46 m/cumm (4.50-6.00); RBC Distribution Width 18.9 % (11.8-14.1); White Blood Cell Count 12.22 k/cumm (4.4-10.8)
[2018-03-03 10:45] LABS: Absolute Basophil Count 0.02 k/cumm (0.0-0.2); Absolute Lymphocyte Count 3.16 k/cumm (1.2-3.4); Absolute Neutrophil Count 7.58 k/cumm (1.2-6.7)
[2018-03-03 10:46] LABS: HGB 11.4 g/dL (13.5-17.5)
--- NOTE | 2018-03-03 10:48 | PHARADMIT ---
Addendum entered by Michelle Santana 03/04/18 13:46: Pharmacy Note Subjective plan for patient to transfer to [facility] Objective temp 36.0, bp 148/70 , WBC up to 14.19, H/H down to 9.0/29.6 Assessment all meds continue at this time Plan expecting to see multiple med changes Original Note: Admission Pharmacy Clinical Review left trochanteric hip fracture, ? Femoral aneurism ?, severe dementia, hx of CVA & vascular disease Code Status DNR/DNI Current Weight Wgt-50.6 kg Renally Cleared and Narrow Therapeutic Index Meds CrCl~ 24 mL/min Meds-OK QTc Value / Action Taken QTc-487 Celexa, Prootonix, Zosyn, BP Control, Fever BP-140/79 Tmax-37C Electrolytes reviewed Na- 143 K+4.3 Mag-2.1 DVT Prophylaxis No (Surgury ??) Opiate Usage / Scheduled Bowel Regimen Ordered Yes Yes Plt/SCr for Heparin / Enoxaparin Plts- 268 SCr-1.88 INR for Warfarin inr-1.0 H/H stable, WBC/Bands H&H- 11.4/37.6 WBC- 12.22 Antibiotic appropriateness Zosyn Cultures and Sensitivities Urine, MRSA-Nose- Pending Surgical ABX d/c within 24 hr NA DM control / Insulin Dosing BG- 124 Heart Failure (Check EF%) (ROBERTO CARLOS's, B-Block, Diuretics) Lopressor, NTG IV to PO Switch No Home Meds Reviewed Yes Home Meds Not Ordered ASA, Keflex, Plavix, Bactrim,Breo-Elipta Comments
[2018-03-03] MEDS: Metoprolol 25 MG TAB 12.5 MG PO ×2 (11:30→22:07)
[2018-03-03] MEDS: PIPERACILLIN/TAZO 3.375 GM in Normal Saline 50 ML IVPB ×2 (11:31→19:17)
--- NOTE | 2018-03-03 14:08 | PDOC.CMIN ---
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 Gala has four children whom he does not see often. He also has a family member Ke whom is his primary support. CURRENT FUNCTIONAL STATUS:: Currently Gala is lying in bed this morning. ADVANCE DIRECTIVES:: On file Has patient been provided with information about the portal?: Yes Did the patient sign up for the portal?: No CODE STATUS:: DNR/DNI INSURANCE COVERAGE / FINANCIAL ISSUES:: Medicare, Medicaid CURRENT HOME/COMMUNITY SERVICES/EQUIPMENT:: Currently Gala receives all care and equipment needs through [facility] PRIMARY CARE PHYSICIAN:: Dr. Mann POTENTIAL DISCHARGE NEEDS:: Return to [facility]. F/U with orthopedics PATIENT/FAMILY EDUCATION NEEDS:: Review DC instructions, any limitations, and ongoing DC planning discussion. Discuss 'Ask Me Three' ANTICIPATED BARRIERS TO DISCHARGE:: None identified at this time. TRANSPORTATION:: Via [facility] w/c van vs. ambulance PLAN:: Gala will return to [facility] once medically cleared. He will F/U with orthopedics outpatient. W/C van vs. ambulance to transport.
--- NOTE | 2018-03-03 14:27 | INITIAL_ITS ---
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 Gala has four children whom he does not see often. He also has a family member Ke whom is his primary support. CURRENT FUNCTIONAL STATUS:: Currently Gala is lying in bed this morning. ADVANCE DIRECTIVES:: On file Has patient been provided with information about the portal?: Yes Did the patient sign up for the portal?: No CODE STATUS:: DNR/DNI INSURANCE COVERAGE / FINANCIAL ISSUES:: Medicare, Medicaid CURRENT HOME/COMMUNITY SERVICES/EQUIPMENT:: Currently Gala receives all care and equipment needs through [facility] PRIMARY CARE PHYSICIAN:: Dr. Mann POTENTIAL DISCHARGE NEEDS:: Return to [facility]. F/U with orthopedics PATIENT/FAMILY EDUCATION NEEDS:: Review DC instructions, any limitations, and ongoing DC planning discussion. Discuss 'Ask Me Three' ANTICIPATED BARRIERS TO DISCHARGE:: None identified at this time. TRANSPORTATION:: Via [facility] w/c van vs. ambulance PLAN:: Gala will return to [facility] once medically cleared. He will F/U with orthopedics outpatient. W/C van vs. ambulance to transport.
[2018-03-03] MEDS: Lactated Ringers 1,000 ML 30 ML IV (15:30)
[2018-03-03] MEDS: Bupivacaine 0.5% Pres-Free 30 ML VIAL (16:08)
--- NOTE | 2018-03-03 17:35 | DI.RAD_ITS ---
SYMPTOM/DIAGNOSIS: LEFT HIP FRACTURE C-ARM FLUOROSCOPY LEFT HIP: Fluoroscopy Time: 67.7 sec, 4.64 mGy Fluoroscopy was provided in the O.R. for Dr. Hunter. Hard copy images show placement of a compression screw in the proximal left femur for fracture fixation. Please see procedure note for details.
--- NOTE | 2018-03-03 18:06 | NUR.NOTE ---
Pt arrived from [facility] on a stretcher with RNS x 2. On assessment ill-looking male having deep breathing but responds by opening eyes when name is called. patient is breathing spontaneously on room air. Chest sounds heard same distant but clear. Abdomen soft and flat. Patient noted with intravenous fluid progressing with Lactated ringer from PACU with bilateral access to the right hand. Dressing to the post opsite of left hip dry and intact. Patient has mottleness to the lower extremities sepecially to the left leg. Urine catheter in at this time draining clear yellow urine.
--- NOTE | 2018-03-03 18:41 | W.PM.PROGNOT ---
Date of Service Date of service: 03/03/18 Time of Service: 18:42 Assessment and Plan (1) Closed comminuted intertrochanteric fracture of left femur: Current visit: Yes Status: Acute Currently NPO and awaiting surgical intervention later today. Very likely high surgical risk, but at this point given displaced femoral fracture recommend continuing with surgical intervention despite risk. (2) Urinary retention: Current visit: Yes Status: Acute continue del toro (3) Acute kidney injury (nontraumatic): Current visit: Yes Status: Acute In setting of UTI and potential dehydration, with potential for obstructive uropathy as well. Gently hydrate, continue del [place]o catheter, and treat UTI. Monitor kidney function. (4) COPD (chronic obstructive pulmonary disease): Current visit: No Status: Chronic Appears quiescent. Continue home inhaler regimen and prn albuterol by neb. (5) CAD (coronary artery disease): Current visit: No Status: Chronic Noted. No ischemic EKG changes and with neative troponins. Continue metoprolol tartrate, with ASA and Plavix on hold. (6) PUD (peptic ulcer disease): Current visit: No Status: Chronic Continue but change to IV PPI. (7) AAA (abdominal aortic aneurysm): Current visit: No Status: Chronic Noted. (8) Constipation: Current visit: Yes Status: Acute Receiving suppositories and enemas prior to operation. (9) Pseudomonas urinary tract infection: Current visit: Yes Status: Acute Initiated on Pip-Tazo. Monitor culture results. (10) Alzheimer's type dementia: Current visit: No Status: Chronic continue Namenda (11) DVT prophylaxis: Current visit: Yes Status: Acute SCDs for now. (12) Advance directive in chart: Current visit: Yes Status: Acute DNR/DNI. Subjective Interval history since last seen: 77-year-old male resident of [facility] admitted on 03/02 from [facility] Emergency Department following a mechanical fall with a left sided displaced intertrochanteric femoral fracture. Mr. Kang has a history of COPD, CAD, AAA s/p stenting, b/l femoral artery aneurysms, and PVD. He has undergone an aortic femoral bypass. He also has known history of PUD, CKD, and BPH. 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 The patient had a witnessed fall the evening of the admission, with immediate onset of left hip pain and inability to ambulate. He was evaluated in the emergency room with x-rays showing a displaced comminuted left intertrochanteric femur fracture. He also had evidence of HAKEEM by labs, a mild leukocytosis, and evidence of a UTI. The patient was recently started on Keflex and Bactrim for a UTI at his residence, but with urine culture showing 2 species of pseudomonas aeruginosa. He was also noted to be constipated by imaging. Mr. Kang remains on antibiotic therapy. He is due for surgical repair of his fracture today. No events reported overnight. He remains afebrile. Exam Narrative Exam Narrative: General: Patient appears comfortable, NAD, Awake not oriented Neck: Supple CV: Regular, tachycardic, S1S2 Pulmonary: Clear to auscultation bilaterally on limited anterior/lateral exam Abdomen: + Bowel Sounds, soft, nontender, nondistended Vascular: No lower extremity edema Psych: Normal mood and affect. Objective Objective Clinical Data: Abnormal lab results 03/02/18 03/02/18 03/03/18 Range/Units 20:15 20:15 01:30 WBC 11.04 H (4.4-10.8) k/cumm RBC (4.50-6.00) m/cumm Hgb 12.3 L (13.5-17.5) g/dL Hct 39.7 L (40.0-50.0) % MCH 25.6 L (27.0-33.0) pg MCHC 31.0 L (32.0-36.0) g/dL RDW 18.9 H (11.8-14.1) % MPV 11.3 H (8.0-11.0) fL Absolute Neutrophils 7.55 H (1.2-6.7) k/cumm Absolute Monocytes 1.38 H (0.11-0.7) k/cumm Anion Gap 12.2 H (3-11) mmol/L BUN 26 H (7-18) mg/dL Creatinine 2.08 H (0.70-1.30) mg/dL Glucose 119 H (70-100) mg/dL Total Protein 8.4 H (6.4-8.2) g/dL Urine Protein 100 H (Negative) mg/dL Urine Ketones Trace H (Negative) mg/dL Urine Blood Large H (Negative) Ur Leukocyte Esterase Large H (Negative) 03/03/18 03/03/18 Range/Units 06:53 09:58 WBC 12.22 H (4.4-10.8) k/cumm RBC 4.46 L (4.50-6.00) m/cumm Hgb 11.4 L (13.5-17.5) g/dL Hct 37.6 L (40.0-50.0) % MCH 25.6 L (27.0-33.0) pg MCHC 30.3 L (32.0-36.0) g/dL RDW 18.9 H (11.8-14.1) % MPV 12.2 H (8.0-11.0) fL Absolute Neutrophils 7.58 H (1.2-6.7) k/cumm Absolute Monocytes 1.39 H (0.11-0.7) k/cumm Anion Gap 14.0 H (3-11) mmol/L BUN 26 H (7-18) mg/dL Creatinine 1.88 H (0.70-1.30) mg/dL Glucose 124 H (70-100) mg/dL Total Protein (6.4-8.2) g/dL Urine Protein (Negative) mg/dL Urine Ketones (Negative) mg/dL Urine Blood (Negative) Ur Leukocyte Esterase (Negative) Vital Signs Temperature 36.0 C L 03/03/18 17:55 Temperature Source Tympanic 03/03/18 17:55 Pulse 109 H 03/03/18 17:55 Pulse Rhythm Regular 03/03/18 07:50 Pulse 106 H 03/02/18 23:40 Respiratory Rate 16 03/03/18 17:55 Respiratory Effort 03/03/18 17:55 Respiratory Depth Deep 03/03/18 17:55 Respiratory Pattern Tachypnea 03/03/18 07:50 Blood Pressure 138/80 03/03/18 17:55 Blood Pressure Mean 108 03/02/18 23:30 Blood Pressure Position Sitting 03/02/18 19:58 Pulse Oximetry 95 03/03/18 17:55 Respiratory End-tidal CO2 30 03/03/18 17:33 Oxygen Delivery Method Room Air 03/03/18 17:55 Oxygen Flow Rate 0 03/03/18 17:55 Pain Level 2 03/03/18 08:35 Comment 03/03/18 17:55 Intake & Output 03/02/18 03/03/18 03/03/18 23:59 11:59 23:59 Intake Total 1354.667 / 1604.667 250 / 1604.667 Output Total 1400 / 1400 100 / 350 250 / 350 Balance -1400 / -1400 1254.667 / 1254.667 0 / 1254.667 Weight 53.5 kg 50.6 kg Intake: IV 1354.667 / 1604.667 250 / 1604.667 Output: Urine 1400 / 1400 100 / 200 100 / 200 Estimated Blood Loss 150 / 150 Other: Urine Color Yellow Light Laisha Yellow Bright Red Urine Appearance Clear Clear Clear Comment old catheter was not in the bladder so it was removed and a new one was placed PT ARRIVED TO OR WITH INDWELLING CATHETER DRAINING CLEAR YELLOW URINE. Stool Characteristics Soft Liquid Brown Emesis Description None Laboratory Results WBC 12.22 k/cumm (4.4-10.8) H 03/03/18 09:58 RBC 4.46 m/cumm (4.50-6.00) L 03/03/18 09:58 Hgb 11.4 g/dL (13.5-17.5) L 03/03/18 09:58 Hct 37.6 % (40.0-50.0) L 03/03/18 09:58 MCV 84.3 fL (80-95) 03/03/18 09:58 MCH 25.6 pg (27.0-33.0) L 03/03/18 09:58 MCHC 30.3 g/dL (32.0-36.0) L 03/03/18 09:58 RDW 18.9 % (11.8-14.1) H 03/03/18 09:58 Plt Count 268 x1000/uL (130-400) 03/03/18 09:58 MPV 12.2 fL (8.0-11.0) H 03/03/18 09:58 Abs Immat Gran (auto) Cancelled 03/03/18 06:53 Immature Gran % 0.3 03/03/18 09:58 Neutrophils % 62.0 03/03/18 09:58 Lymphocytes % 25.9 03/03/18 09:58 Monocytes % 11.4 03/03/18 09:58 Eosinophils % 0.2 03/03/18 09:58 Basophils % 0.2 03/03/18 09:58 Absolute Neutrophils 7.58 k/cumm (1.2-6.7) H 03/03/18 09:58 Band Neutrophils Cancelled 03/03/18 06:53 Absolute Lymphocytes 3.16 k/cumm (1.2-3.4) 03/03/18 09:58 Absolute Monocytes 1.39 k/cumm (0.11-0.7) H 03/03/18 09:58 Absolute Eosinophils 0.02 k/cumm (0.0-0.7) 03/03/18 09:58 Absolute Basophils 0.02 k/cumm (0.0-0.2) 03/03/18 09:58 Metamyelocytes Cancelled 03/03/18 06:53 Myelocytes Cancelled 03/03/18 06:53 Promyelocytes Cancelled 03/03/18 06:53 Nucleated RBCs Cancelled 03/03/18 06:53 Differential Comment Agrees w/ instrument 03/02/18 20:15 Atypical Lymphocytes Cancelled 03/03/18 06:53 Other Cell Type Cancelled 03/03/18 06:53 RBC Morphology Cancelled 03/03/18 06:53 Polychromasia Cancelled 03/03/18 06:53 Hypochromasia Cancelled 03/03/18 06:53 Poikilocytosis Cancelled 03/03/18 06:53 Basophilic Stippling Cancelled 03/03/18 06:53 Anisocytosis Cancelled 03/03/18 06:53 Microcytosis Cancelled 03/03/18 06:53 Macrocytosis Cancelled 03/03/18 06:53 Spherocytes Cancelled 03/03/18 06:53 Target Cells Cancelled 03/03/18 06:53 Tear Drop Cells Cancelled 03/03/18 06:53 Ovalocytes Cancelled 03/03/18 06:53 Stomatocytes Cancelled 03/03/18 06:53 [place] Bodies Cancelled 03/03/18 06:53 [place] Cells Cancelled 03/03/18 06:53 Acanthocytes (Spur) Cancelled 03/03/18 06:53 Schistocytes Cancelled 03/03/18 06:53 PT 9.9 sec (9.3-10.8) 03/02/18 20:15 INR 1.0 (1.0-3.5) 03/02/18 20:15 APTT 26.2 sec (21.0-31.4) 03/02/18 20:15 Sodium 143 mmol/L (136-145) 03/03/18 06:53 Potassium 4.3 mmol/L (3.5-5.1) 03/03/18 06:53 Chloride 104 mmol/L (98-107) 03/03/18 06:53 Carbon Dioxide 25.0 mmol/L (21.0-32.0) 03/03/18 06:53 Anion Gap 14.0 mmol/L (3-11) H 03/03/18 06:53 BUN 26 mg/dL (7-18) H 03/03/18 06:53 Creatinine 1.88 mg/dL (0.70-1.30) H 03/03/18 06:53 Estimated GFR/1.73 m2 35.16 (mL/min/1.73m2) 03/03/18 06:53 Glucose 124 mg/dL (70-100) H 03/03/18 06:53 Calcium 8.7 mg/dL (8.5-10.1) 03/03/18 06:53 Magnesium 2.1 mg/dL (1.8-2.4) 03/03/18 06:53 Total Bilirubin 0.2 mg/dL (0.2-1.0) 03/02/18 20:15 AST 17 U/L (15-37) 03/02/18 20:15 ALT 17 U/L (12-78) 03/02/18 20:15 Alkaline Phosphatase 100 U/L (46-116) 03/02/18 20:15 Troponin I < 0.02 ng/mL (0.00-0.06) 03/03/18 06:53 Total Protein 8.4 g/dL (6.4-8.2) H 03/02/18 20:15 Albumin 3.8 g/dL (3.4-5.0) 03/02/18 20:15 Urine Color Yellow (Yellow) 03/03/18 01:30 Urine Clarity Cloudy 03/03/18 01:30 Urine pH 5.5 (5-8) 03/03/18 01:30 Ur Specific [place] 1.025 (1.005-1.025) 03/03/18 01:30 Urine Protein 100 mg/dL (Negative) H 03/03/18 01:30 Urine Ketones Trace mg/dL (Negative) H 03/03/18 01:30 Urine Blood Large (Negative) H 03/03/18 01:30 Urine Nitrite Negative (Negative) 03/03/18 01:30 Urine Bilirubin Negative (Negative) 03/03/18 01:30 Urine Urobilinogen 0.2 EU/dL (Up TO 0.2) 03/03/18 01:30 Ur Leukocyte Esterase Large (Negative) H 03/03/18 01:30 Urine RBC Not Applicable 03/03/18 01:30 Urine WBC HPF (0-5) 03/03/18 01:30 Ur Epithelial Cells Not Applicable 03/03/18 01:30 Urine Crystals Not Applicable 03/03/18 01:30 Urine Bacteria Not Applicable 03/03/18 01:30 Urine Mucus Not Applicable 03/03/18 01:30 Ur Culture Indicated? Yes 03/03/18 01:30 Urine Glucose Negative mg/dL (Negative) 03/03/18 01:30 Patient ABO/Rh O Positive 03/03/18 09:58 Antibody Screen Positive 03/03/18 09:58
--- NOTE | 2018-03-03 21:23 | ROE_ITS ---
DATE OF PROCEDURE: March 03, 2018 PREOPERATIVE DIAGNOSIS: Left intertrochanteric hip fracture. POSTOPERATIVE DIAGNOSIS: Left intertrochanteric hip fracture. PROCEDURE: Open reduction and internal fixation with compression hip screw and sideplate using a 155 -degree angled sideplate and a 100-mm lag screw. SURGEON: Jose uLis Hunter M.D. SWIMMING POOL CLEANER: Caterina Gasca PA-C ANESTHESIA: General via LMA by Tee Storm CRNA PREP: ChloraPrep. INDICATIONS: This patient is a 77-year-old male with dementia. He resides at the [facility]. He has had significant multiple medical comorbidities including atrial fibrillation on Plavix and aspirin. He also has had an aortic abdominal aneurysm resected. He has known aneurysms of both femoral arteries near the inguinal region. He also has a history of alcohol abuse, COPD, ost eoporosis, and dementia. He was admitted by the Hospitalist Service. I was consulted to see the pat ient. CT scan and plain radiographs showed an intertrochanteric fracture of the left hip. There was some impaction noted on the CT scan. Because of his age and his injury, I felt that open reduction and internal fixation was necessary as a palliative maneuver. Otherwise, the patient would not be ab le to be comfortable in bed or transferring, and probably would not be able to walk in the future. I t was unclear how much ambulation he was actually able to do. Consent was obtained through Social Se rvices from his family and they signed for both anesthetic and surgical procedures. I saw the patien t this morning and he was conversant but was clearly demented. He was pleasantly confused. He was a ctually moving both hips and I felt that he was only able to do so because his left hip fracture was impacted. He was actually lying supine with his hips flexed 90 degrees and both knees flexed 90 degr ees. OPERATIVE PROCEDURE: The patient was taken to the operating suite and underwent successful induction of general anesthesia via LMA. He had been receiving Zosyn for a urinary tract infection and chroni c dehydration had been treated with IV fluids. He had shown a drop in his hemoglobin from 12.3 last night to 9.8 this morning. His renal function showed significant impairment but improvement with ove rnight fluids. Despite all of these risk factors, we elected to proceed and he under general anesthe cornelio via LMA using primarily propofol. He was carefully transferred to the fracture table. Longitudinal traction was applied to the left lo wer extremity. I could not completely reduce the varus deformity and I felt that no further manipula tion should be done because of his relatively fragile skeleton. The lateral aspect of the left hip w as prepped with ChloraPrep, sterile drapes were applied, and the C-arm was brought into position. After verifying the C-arm images of the hip, a lateral incision was made over the greater trochanteri c region of the left hip in line with the lateral shaft of the femur. The skin and subcutaneous tiss ues were incised and hemostasis was controlled with electrocautery. The incision was carried down sh arply through the IT band and through the investing fascia of the vastus lateralis. These muscle fib ers were split bluntly and a Mohr retractor was inserted. The proximal femur was then approached. A 135-degree angled guide device was then placed and placed through the lateral shaft of the femur up into the femoral head and neck junction. I had some difficulty getting this into the appropriate position as the patient was still in some remaining varus. Therefore, I had to lower the position of the guide pin slightly. The pin also tended to continually be redirected anteriorly and I felt, aft er multiple attempts, that I could only obtain an optimal position on the AP view with the guide pin being anteriorly on the lateral radiograph. The size of the lag screw measured 100 mm. I then advan mindi the guide pin into the acetabulum and then reamed over the guide pin with the triple reamer. Car e was taken to avoid violation of the hip joint. I then created threads in the femoral head and neck segment with a bone tap and a 100-mm lag screw was inserted. This was done under C-arm image intens ifier control and seemed to have good position on the AP view and was adequately positioned on the la teral view. I then attached a 135-degree four-hole sideplate to the lag screw. This was secured to the shaft of the femur with 4.5-mm self-tapping screw. Each screw hole was appropriately drilled, me asured, and filled with self-tapping screws. Traction was released. A reduction was felt to be adeq uate. The wound was irrigated during the case with tranexamic acid. There was still some blood loss of arben roximately 150 cc. No blood was replaced intraoperatively. The blood bank had difficulty cross-matc sandeep him because of what appeared to be cold agglutinins. However, Dr. Cobb felt that transfer of t ype-specific blood would probably be adequate if necessary. The wound was closed by closing the vast us lateralis fascia with a running suture of #2-0 Vicryl. The IT band was closed with #1 Vicryl in a [id number] fashion. The subcutaneous tissues were closed with #2-0 Vicryl and the skin was rodrigue sed with cecille. The wounds were dressed with Xeroform gauze, 4x4s, ABD pad, and Medipore tape. The patient was taken to the Recovery Room in satisfactory condition, tolerating the procedure well. He did show evidence of skin mottling which he had even before surgery, but there were no obvious ca rdiovascular problems.
[2018-03-04] VITALS (7 sets, daily range): BP systolic 136–162; BP diastolic 60–78; PULSE 103–112; RESP 18–22; TEMP 36–37.3; O2SAT 94–97
[2018-03-04] MEDS: Normal Saline Flush 10 ML SYR IVP ×5 (00:17→21:32)
[2018-03-04] MEDS: Pantoprazole 40 MG VIAL IVP ×2 (00:18→11:51)
[2018-03-04] MEDS: Normal Saline 1,000 ML 30 ML IV (00:35)
[2018-03-04] MEDS: PIPERACILLIN/TAZO 3.375 GM in Normal Saline 50 ML IVPB ×2 (02:07→09:40)
[2018-03-04 07:31] LABS: Abs Immature Grans 0.03 k/cumm (0.0-0.09); Absolute Basophil Count 0.01 k/cumm (0.0-0.2); Absolute Eosinophil Count 0.01 k/cumm (0.0-0.7); Absolute Lymphocyte Count 1.46 k/cumm (1.2-3.4); Basophils % 0.1; Eosinophils % 0.1; HCT 29.6 % (40.0-50.0); Immature Grans % 0.2; Lymphocytes % 10.3; Mean Corp. HGB Concentration 30.4 g/dL (32.0-36.0); Mean Corpuscular Hemoglobin 25.6 pg (27.0-33.0); Mean Corpuscular Volume 84.1 fL (80-95); Monocytes % 10.4; Neutrophils % 78.9; Platelet Count 191 x1000/uL (130-400); RBC 3.52 m/cumm (4.50-6.00); RBC Distribution Width 18.5 % (11.8-14.1); White Blood Cell Count 14.19 k/cumm (4.4-10.8)
[2018-03-04 07:36] LABS: Absolute Monocyte Count 1.48 k/cumm (0.11-0.7)
[2018-03-04 07:45] LABS: Anion Gap 12.9 mmol/L (3-11); BUN 36 mg/dL (7-18); CO2 25.1 mmol/L (21.0-32.0); CREATININE 1.97 mg/dL (0.70-1.30); Calcium 8.5 mg/dL (8.5-10.1); Chloride 108 mmol/L (98-107); Estimated GFR 33.31 (mL/min/1.73m2); Glucose 109 mg/dL (70-100); Magnesium 2.1 mg/dL (1.8-2.4); Potassium 4.4 mmol/L (3.5-5.1); Sodium 146 mmol/L (136-145)
[2018-03-04] MEDS: Multivitamin TAB 1 TAB PO (08:02)
[2018-03-04] MEDS: Tamsulosin 0.4 MG CAPCR PO (08:02)
[2018-03-04] MEDS: Thiamine 100 MG TAB PO (08:02)
[2018-03-04] MEDS: Citalopram 10 MG TAB 30 MG PO (08:02)
[2018-03-04] MEDS: Folic Acid 1 MG TAB PO (08:02)
[2018-03-04] MEDS: Memantine 5 MG TAB PO (08:02)
--- NOTE | 2018-03-04 09:43 | PT.INNT ---
Date of service: 03/04/18 Time of Service: 09:43 PT Notes PHYSICAL THERAPY NOTE 03/04/18 Per hospitalist, pt is transitioning to Comfort Measures Only. Discharge PT services. Luyc Warner PT
--- NOTE | 2018-03-04 10:04 | PGE_ITS ---
Date of Service Date of service: 03/04/18 Time of Service: 09:50 Assessment and Plan (1) Closed left hip fracture: Current visit: Yes Status: Acute (2) Nontraumatic ischemic infarction of muscle, left ankle and foot: Current visit: Yes Status: Acute Patient is s/p orif left intertrochanteric fracture fixation with new onset of left forefoot ischmia. Patient is known vasculopath and has a large femoral aneurysm on the left and a smaller one on the right. He is a poor surgical candidate with multiple co-morbidities. He did not have evidence of ischemia after surgry and I had checked both legs many times and all he had as bilateral skin mottling that was present pre-operatively. Agree with comfort measures only. I will d/c JAMES hope and SCD's. Consider restarting aspirin and plavix. I will discuss with dr. Schaffer. Subjective Interval history since last seen: Patient reports today in a whisper that he is pretty good However, most of the past 24 hours he has been non-verbal and review of many e.r. visits has demonstrated that he has been non-verbal to the point that he has been described as being aphasic from a massive stroke which is not the case as he has had many small lacunar infarcts.[facility] staff report right forefoot is purple and cyanotic. Posterior tibial pulse apparently detected by doppler but not palpable. He had no pedal pulses prior to surgery. Pulse oximetry can detect some activity on his right second toe but not over any of the toes of the left foot. According to the nursing staff family does not want transfer to [facility] and only want comfort measures only. Exam Extrem Other: Right forefoot cyanotic from midfoot distally. No skin abrasions or areas of breakdown. Objective Objective Clinical Data: Abnormal lab results 03/03/18 03/04/18 03/04/18 Range/Units 09:58 07:15 07:15 WBC 12.22 H 14.19 H (4.4-10.8) k/cumm RBC 4.46 L 3.52 L (4.50-6.00) m/cumm Hgb 11.4 L 9.0 L D (13.5-17.5) g/dL Hct 37.6 L 29.6 L D (40.0-50.0) % MCH 25.6 L 25.6 L (27.0-33.0) pg MCHC 30.3 L 30.4 L (32.0-36.0) g/dL RDW 18.9 H 18.5 H (11.8-14.1) % MPV 12.2 H (8.0-11.0) fL Absolute Neutrophils 7.58 H 11.20 H (1.2-6.7) k/cumm Absolute Monocytes 1.39 H 1.48 H (0.11-0.7) k/cumm Sodium 146 H (136-145) mmol/L Chloride 108 H (98-107) mmol/L Anion Gap 12.9 H (3-11) mmol/L BUN 36 H D (7-18) mg/dL Creatinine 1.97 H (0.70-1.30) mg/dL Glucose 109 H (70-100) mg/dL Vital Signs Temperature 96.8 F L 03/04/18 07:42 Temperature Source Tympanic 03/04/18 07:42 Pulse 109 H 03/04/18 07:42 Pulse Rhythm Regular 03/04/18 00:00 Pulse 106 H 03/02/18 23:40 Respiratory Rate 22 03/04/18 07:42 Respiratory Effort Non-Labored 03/04/18 00:00 Respiratory Depth Normal 03/04/18 00:00 Respiratory Pattern Normal 03/04/18 00:00 Blood Pressure 148/70 H 03/04/18 07:42 Blood Pressure Mean 108 03/02/18 23:30 Blood Pressure Position Sitting 03/02/18 19:58 Pulse Oximetry 95 03/04/18 07:42 Respiratory End-tidal CO2 30 03/03/18 17:33 Oxygen Delivery Method Room Air 03/04/18 07:42 Oxygen Flow Rate 0 03/04/18 07:42 Pain Level 2 03/03/18 08:35 Comment 03/03/18 17:55 Intake & Output 03/03/18 03/03/18 03/04/18 11:59 23:59 11:59 Intake Total 1354.667 / 1654.667 300 / 1654.667 260 / 260 Output Total 100 / 350 250 / 350 200 / 200 Balance 1254.667 / 1304.667 50 / 1304.667 60 / 60 Weight 111 lb 8.862 oz 108 lb 0.424 oz Intake: IV 1354.667 / 1654.667 300 / 1654.667 260 / 260 Output: Urine 100 / 200 100 / 200 200 / 200 Estimated Blood Loss 150 / 150 Other: Urine Color Light Laisha Yellow Pale Urine Appearance Clear Clear Clear Comment PT ARRIVED TO OR WITH INDWELLING CATHETER DRAINING CLEAR YELLOW URINE. Stool Size Moderate Stool Characteristics Liquid Emesis Description None Laboratory Results WBC 14.19 k/cumm (4.4-10.8) H 03/04/18 07:15 RBC 3.52 m/cumm (4.50-6.00) L 03/04/18 07:15 Hgb 9.0 g/dL (13.5-17.5) L D 03/04/18 07:15 Hct 29.6 % (40.0-50.0) L D 03/04/18 07:15 MCV 84.1 fL (80-95) 03/04/18 07:15 MCH 25.6 pg (27.0-33.0) L 03/04/18 07:15 MCHC 30.4 g/dL (32.0-36.0) L 03/04/18 07:15 RDW 18.5 % (11.8-14.1) H 03/04/18 07:15 Plt Count 191 x1000/uL (130-400) 03/04/18 07:15 MPV 11.0 fL (8.0-11.0) 03/04/18 07:15 Abs Immat Gran (auto) Cancelled 03/03/18 06:53 Immature Gran % 0.2 03/04/18 07:15 Neutrophils % 78.9 03/04/18 07:15 Lymphocytes % 10.3 03/04/18 07:15 Monocytes % 10.4 03/04/18 07:15 Eosinophils % 0.1 03/04/18 07:15 Basophils % 0.1 03/04/18 07:15 Absolute Neutrophils 11.20 k/cumm (1.2-6.7) H 03/04/18 07:15 Band Neutrophils Cancelled 03/03/18 06:53 Absolute Lymphocytes 1.46 k/cumm (1.2-3.4) 03/04/18 07:15 Absolute Monocytes 1.48 k/cumm (0.11-0.7) H 03/04/18 07:15 Absolute Eosinophils 0.01 k/cumm (0.0-0.7) 03/04/18 07:15 Absolute Basophils 0.01 k/cumm (0.0-0.2) 03/04/18 07:15 Metamyelocytes Cancelled 03/03/18 06:53 Myelocytes Cancelled 03/03/18 06:53 Promyelocytes Cancelled 03/03/18 06:53 Nucleated RBCs Cancelled 03/03/18 06:53 Differential Comment Agrees w/ instrument 03/02/18 20:15 Atypical Lymphocytes Cancelled 03/03/18 06:53 Other Cell Type Cancelled 03/03/18 06:53 RBC Morphology Cancelled 03/03/18 06:53 Polychromasia Cancelled 03/03/18 06:53 Hypochromasia Cancelled 03/03/18 06:53 Poikilocytosis Cancelled 03/03/18 06:53 Basophilic Stippling Cancelled 03/03/18 06:53 Anisocytosis Cancelled 03/03/18 06:53 Microcytosis Cancelled 03/03/18 06:53 Macrocytosis Cancelled 03/03/18 06:53 Spherocytes Cancelled 03/03/18 06:53 Target Cells Cancelled 03/03/18 06:53 Tear Drop Cells Cancelled 03/03/18 06:53 Ovalocytes Cancelled 03/03/18 06:53 Stomatocytes Cancelled 03/03/18 06:53 [place] Bodies Cancelled 03/03/18 06:53 [place] Cells Cancelled 03/03/18 06:53 Acanthocytes (Spur) Cancelled 03/03/18 06:53 Schistocytes Cancelled 03/03/18 06:53 PT 9.9 sec (9.3-10.8) 03/02/18 20:15 INR 1.0 (1.0-3.5) 03/02/18 20:15 APTT 26.2 sec (21.0-31.4) 03/02/18 20:15 Sodium 146 mmol/L (136-145) H 03/04/18 07:15 Potassium 4.4 mmol/L (3.5-5.1) 03/04/18 07:15 Chloride 108 mmol/L (98-107) H 03/04/18 07:15 Carbon Dioxide 25.1 mmol/L (21.0-32.0) 03/04/18 07:15 Anion Gap 12.9 mmol/L (3-11) H 03/04/18 07:15 BUN 36 mg/dL (7-18) H D 03/04/18 07:15 Creatinine 1.97 mg/dL (0.70-1.30) H 03/04/18 07:15 Estimated GFR/1.73 m2 33.31 (mL/min/1.73m2) 03/04/18 07:15 Glucose 109 mg/dL (70-100) H 03/04/18 07:15 Calcium 8.5 mg/dL (8.5-10.1) 03/04/18 07:15 Magnesium 2.1 mg/dL (1.8-2.4) 03/04/18 07:15 Total Bilirubin 0.2 mg/dL (0.2-1.0) 03/02/18 20:15 AST 17 U/L (15-37) 03/02/18 20:15 ALT 17 U/L (12-78) 03/02/18 20:15 Alkaline Phosphatase 100 U/L (46-116) 03/02/18 20:15 Troponin I < 0.02 ng/mL (0.00-0.06) 03/03/18 06:53 Total Protein 8.4 g/dL (6.4-8.2) H 03/02/18 20:15 Albumin 3.8 g/dL (3.4-5.0) 03/02/18 20:15 Urine Color Yellow (Yellow) 03/03/18 01:30 Urine Clarity Cloudy 03/03/18 01:30 Urine pH 5.5 (5-8) 03/03/18 01:30 Ur Specific [place] 1.025 (1.005-1.025) 03/03/18 01:30 Urine Protein 100 mg/dL (Negative) H 03/03/18 01:30 Urine Ketones Trace mg/dL (Negative) H 03/03/18 01:30 Urine Blood Large (Negative) H 03/03/18 01:30 Urine Nitrite Negative (Negative) 03/03/18 01:30 Urine Bilirubin Negative (Negative) 03/03/18 01:30 Urine Urobilinogen 0.2 EU/dL (Up TO 0.2) 03/03/18 01:30 Ur Leukocyte Esterase Large (Negative) H 03/03/18 01:30 Urine RBC Not Applicable 03/03/18 01:30 Urine WBC HPF (0-5) 03/03/18 01:30 Ur Epithelial Cells Not Applicable 03/03/18 01:30 Urine Crystals Not Applicable 03/03/18 01:30 Urine Bacteria Not Applicable 03/03/18 01:30 Urine Mucus Not Applicable 03/03/18 01:30 Ur Culture Indicated? Yes 03/03/18 01:30 Urine Glucose Negative mg/dL (Negative) 03/03/18 01:30 Patient ABO/Rh O Positive 03/03/18 09:58 Antibody Screen Positive 03/03/18 09:58
[2018-03-04] MEDS: Metoprolol 25 MG TAB 12.5 MG PO ×2 (10:58→21:16)
--- NOTE | 2018-03-04 13:20 | PDOC.CMPRO ---
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 Per morning meeting he may be ready to return to [facility] this weekend. SWETA spoke with [facility], whom states that they would not be able to take Gala back at [facility] this due to staffing, however would be able to accept him back on Wednesday. A: 77 y/o male admitted 03/02/18 for (L) intertrochanteric hip fracture. 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 He will return to [facility] on Wednesday once medically cleared. Gala will transport either via [facility] or ambulance.
--- NOTE | 2018-03-04 13:34 | CMPROGNOTE_ITS ---
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 Per morning meeting he may be ready to return to [facility] this weekend. SWETA spoke with [facility], whom states that they would not be able to take Gala back at [facility] this due to staffing, however would be able to accept him back on Wednesday. A: 77 y/o male admitted 03/02/18 for (L) intertrochanteric hip fracture. 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 He will return to [facility] on Wednesday once medically cleared. Gala will transport either via [facility] or ambulance.
[2018-03-04] MEDS: Heparin 5,000 UNITS/ML VIAL 5000 UNITS SC ×2 (14:22→21:18)
[2018-03-04] MEDS: Clopidogrel 75 MG TAB PO (14:24)
[2018-03-04] MEDS: Aspirin 81 MG CHEW PO (14:24)
--- NOTE | 2018-03-04 14:27 | PGE_ITS ---
Date of Service Date of service: 03/04/18 Time of Service: 14:26 Assessment and Plan (1) Ischemic foot: Current visit: Yes Status: Acute Ischemic findings seem to be improving, with return of pulses by doppler. Following discussion with ortho DAPT was reinitiated in patient. Also discussed in detail with both family as well as vascular surgery - Given creatinine likely not a good candidate for CT Angio. Discussion was had regarding potential ultrasound & ALEX's. Currently no role for active anticoagulation without appropriate diagnosis - Family is also not interested invasive work-up or treatment. Also discussed that if consition worsens instead of improvings that there may be need for an amputation in the future. Again family is not interested in invasive or surgical procedures now or in the future, as indicated by the patient's brother's . Continue aspirin and plavix. Not on statin therapy. (2) Closed comminuted intertrochanteric fracture of left femur: Current visit: Yes Status: Acute S/p ORIF - POD #1. Continue pain control. (3) Urinary retention: Current visit: Yes Status: Acute continue del toro for now. (4) Acute kidney injury (nontraumatic): Current visit: Yes Status: Acute HAKEEM superimposed on CKD. In setting of potential UTI with dehydration with obstructive uropathy as well. Gently hydrate, continue del toro catheter, and treat UTI. Monitor kidney function carefully. (5) COPD (chronic obstructive pulmonary disease): Current visit: No Status: Chronic Appears quiescent. Continue home inhaler regimen and prn albuterol by neb. (6) CAD (coronary artery disease): Current visit: No Status: Chronic Noted. No ischemic EKG changes and with negative troponins. Continue metoprolol tartrate, and restart ASA and Plavix. (7) PUD (peptic ulcer disease): Current visit: No Status: Chronic Continue but change to IV PPI. (8) AAA (abdominal aortic aneurysm): Current visit: No Status: Chronic Noted. (9) Constipation: Current visit: Yes Status: Acute Good reported results with enema yesterday. (10) Pseudomonas urinary tract infection: Current visit: Yes Status: Acute Initiated on Pip-Tazo at time of admission - had been maintained on combination bactrim and keflex as outpatient. Urine culture from 02/27 growing 2 seperate species of Pseudomonas, both sensitive to Cipro and Pip-Tazo, but at 10-50,000 colonies/ml only. Currently with 2 GNR's again growing at 10-50,000 colonies/ml only, but with significant pyuria on urinalysis with microscopy. Monitor culture results, but will change from zosyn to oral Cipro today. (11) Alzheimer's type dementia: Current visit: No Status: Chronic continue Namenda (12) DVT prophylaxis: Current visit: Yes Status: Acute SC Heparin. (13) Advance directive in chart: Current visit: Yes Status: Acute DNR/DNI. As per discussion with family, will continue treatment with antibiotics and medications, but no further surgical intervention or invasive testing or procedures. Moving towards comfort measures. May benefit from Palliative care consult as well. Back to [facility] soon. Subjective Interval history since last seen: 77-year-old male resident of [facility] admitted on 03/02 from [facility] Emergency Department following a mechanical fall with a left sided displaced intertrochanteric femoral fracture. Mr. Kang has a history of COPD, CAD, AAA s/p stenting, b/l femoral artery aneurysms, and PVD. He has undergone an aortic femoral bypass. He also has known history of PUD, CKD, and BPH. 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 The patient had a witnessed fall the evening of the admission, with immediate onset of left hip pain and inability to ambulate. He was evaluated in the emergency room with x-rays showing a displaced comminuted left intertrochanteric femur fracture. He also had evidence of HAKEEM by labs, a mild leukocytosis, and evidence of a UTI. The patient was recently started on Keflex and Bactrim for a UTI at his residence, but with urine culture showing 2 species of pseudomonas aeruginosa. He was also noted to be constipated by imaging. Mr. Kang remains on antibiotic therapy. He is POD #1 for surgical repair of his femoral fracture - reportedly with some blood loss. This morning nursing reports discovery of an ischemic appearing left foot. He remains afebrile. Exam Narrative Exam Narrative: General: Patient appears comfortable this morning, NAD, Asleep but arousable. Not oriented Neck: Supple CV: Regular, tachycardic, S1S2 Pulmonary: Clear to auscultation bilaterally on limited anterior/lateral exam Abdomen: + Bowel Sounds, soft, nontender, nondistended Vascular: No lower extremity edema. Left foot with blue/purple discoloration of all 5 digits and across the dorsal and plantar aspect of the foot, worse on the lateral aspect of the foot early this morning. By mid afternoon there was clear recession of the area of ischemic appearance. Both Dorsalis Pedis and Posterior Tibial Pulses now present by doppler. Objective Objective Clinical Data: Abnormal lab results 03/04/18 03/04/18 Range/Units 07:15 07:15 WBC 14.19 H (4.4-10.8) k/cumm RBC 3.52 L (4.50-6.00) m/cumm Hgb 9.0 L D (13.5-17.5) g/dL Hct 29.6 L D (40.0-50.0) % MCH 25.6 L (27.0-33.0) pg MCHC 30.4 L (32.0-36.0) g/dL RDW 18.5 H (11.8-14.1) % Absolute Neutrophils 11.20 H (1.2-6.7) k/cumm Absolute Monocytes 1.48 H (0.11-0.7) k/cumm Sodium 146 H (136-145) mmol/L Chloride 108 H (98-107) mmol/L Anion Gap 12.9 H (3-11) mmol/L BUN 36 H D (7-18) mg/dL Creatinine 1.97 H (0.70-1.30) mg/dL Glucose 109 H (70-100) mg/dL Vital Signs Temperature 37.3 C 03/04/18 11:40 Temperature Source Tympanic 03/04/18 11:40 Pulse 112 H 03/04/18 14:01 Pulse Rhythm Regular 03/04/18 08:02 Pulse 106 H 03/02/18 23:40 Respiratory Rate 18 03/04/18 11:40 Respiratory Effort Non-Labored 03/04/18 08:02 Respiratory Depth Normal 03/04/18 08:02 Respiratory Pattern Normal 03/04/18 08:02 Blood Pressure 136/60 03/04/18 11:40 Blood Pressure Mean 108 03/02/18 23:30 Blood Pressure Position Sitting 03/02/18 19:58 Pulse Oximetry 95 03/04/18 11:40 Respiratory End-tidal CO2 30 12/13/18 17:33 Oxygen Delivery Method Room Air 03/04/18 11:40 Oxygen Flow Rate 0 03/04/18 11:40 Pain Level 2 03/03/18 08:35 Comment 03/03/18 17:55 Intake & Output 03/03/18 03/04/18 03/04/18 23:59 11:59 23:59 Intake Total 300 / 1654.667 532.5 / 582.5 50 / 582.5 Output Total 250 / 350 200 / 200 Balance 50 / 1304.667 332.5 / 382.5 50 / 382.5 Weight 49 kg Intake: IV 300 / 1654.667 532.5 / 582.5 50 / 582.5 Output: Urine 100 / 200 200 / 200 Estimated Blood Loss 150 / 150 Other: Urine Color Yellow Pale Urine Appearance Clear Clear Comment PT ARRIVED TO OR WITH INDWELLING CATHETER DRAINING CLEAR YELLOW URINE. Stool Size Moderate Stool Characteristics Liquid Emesis Description None Laboratory Results WBC 14.19 k/cumm (4.4-10.8) H 03/04/18 07:15 RBC 3.52 m/cumm (4.50-6.00) L 03/04/18 07:15 Hgb 9.0 g/dL (13.5-17.5) L D 03/04/18 07:15 Hct 29.6 % (40.0-50.0) L D 03/04/18 07:15 MCV 84.1 fL (80-95) 03/04/18 07:15 MCH 25.6 pg (27.0-33.0) L 03/04/18 07:15 MCHC 30.4 g/dL (32.0-36.0) L 03/04/18 07:15 RDW 18.5 % (11.8-14.1) H 03/04/18 07:15 Plt Count 191 x1000/uL (130-400) 03/04/18 07:15 MPV 11.0 fL (8.0-11.0) 03/04/18 07:15 Abs Immat Gran (auto) Cancelled 03/03/18 06:53 Immature Gran % 0.2 03/04/18 07:15 Neutrophils % 78.9 03/04/18 07:15 Lymphocytes % 10.3 03/04/18 07:15 Monocytes % 10.4 03/04/18 07:15 Eosinophils % 0.1 03/04/18 07:15 Basophils % 0.1 03/04/18 07:15 Absolute Neutrophils 11.20 k/cumm (1.2-6.7) H 03/04/18 07:15 Band Neutrophils Cancelled 03/03/18 06:53 Absolute Lymphocytes 1.46 k/cumm (1.2-3.4) 03/04/18 07:15 Absolute Monocytes 1.48 k/cumm (0.11-0.7) H 03/04/18 07:15 Absolute Eosinophils 0.01 k/cumm (0.0-0.7) 03/04/18 07:15 Absolute Basophils 0.01 k/cumm (0.0-0.2) 03/04/18 07:15 Metamyelocytes Cancelled 03/03/18 06:53 Myelocytes Cancelled 03/03/18 06:53 Promyelocytes Cancelled 03/03/18 06:53 Nucleated RBCs Cancelled 03/03/18 06:53 Differential Comment Agrees w/ instrument 03/02/18 20:15 Atypical Lymphocytes Cancelled 03/03/18 06:53 Other Cell Type Cancelled 03/03/18 06:53 RBC Morphology Cancelled 03/03/18 06:53 Polychromasia Cancelled 03/03/18 06:53 Hypochromasia Cancelled 03/03/18 06:53 Poikilocytosis Cancelled 03/03/18 06:53 Basophilic Stippling Cancelled 03/03/18 06:53 Anisocytosis Cancelled 03/03/18 06:53 Microcytosis Cancelled 03/03/18 06:53 Macrocytosis Cancelled 03/03/18 06:53 Spherocytes Cancelled 03/03/18 06:53 Target Cells Cancelled 03/03/18 06:53 Tear Drop Cells Cancelled 03/03/18 06:53 Ovalocytes Cancelled 03/03/18 06:53 Stomatocytes Cancelled 03/03/18 06:53 [place] Bodies Cancelled 03/03/18 06:53 [place] Cells Cancelled 03/03/18 06:53 Acanthocytes (Spur) Cancelled 03/03/18 06:53 Schistocytes Cancelled 03/03/18 06:53 PT 9.9 sec (9.3-10.8) 03/02/18 20:15 INR 1.0 (1.0-3.5) 03/02/18 20:15 APTT 26.2 sec (21.0-31.4) 03/02/18 20:15 Sodium 146 mmol/L (136-145) H 03/04/18 07:15 Potassium 4.4 mmol/L (3.5-5.1) 03/04/18 07:15 Chloride 108 mmol/L (98-107) H 03/04/18 07:15 Carbon Dioxide 25.1 mmol/L (21.0-32.0) 03/04/18 07:15 Anion Gap 12.9 mmol/L (3-11) H 03/04/18 07:15 BUN 36 mg/dL (7-18) H D 03/04/18 07:15 Creatinine 1.97 mg/dL (0.70-1.30) H 03/04/18 07:15 Estimated GFR/1.73 m2 33.31 (mL/min/1.73m2) 03/04/18 07:15 Glucose 109 mg/dL (70-100) H 03/04/18 07:15 Calcium 8.5 mg/dL (8.5-10.1) 03/04/18 07:15 Magnesium 2.1 mg/dL (1.8-2.4) 03/04/18 07:15 Total Bilirubin 0.2 mg/dL (0.2-1.0) 03/02/18 20:15 AST 17 U/L (15-37) 03/02/18 20:15 ALT 17 U/L (12-78) 03/02/18 20:15 Alkaline Phosphatase 100 U/L (46-116) 03/02/18 20:15 Troponin I < 0.02 ng/mL (0.00-0.06) 03/03/18 06:53 Total Protein 8.4 g/dL (6.4-8.2) H 03/02/18 20:15 Albumin 3.8 g/dL (3.4-5.0) 03/02/18 20:15 Urine Color Yellow (Yellow) 03/03/18 01:30 Urine Clarity Cloudy 03/03/18 01:30 Urine pH 5.5 (5-8) 03/03/18 01:30 Ur Specific [place] 1.025 (1.005-1.025) 03/03/18 01:30 Urine Protein 100 mg/dL (Negative) H 03/03/18 01:30 Urine Ketones Trace mg/dL (Negative) H 03/03/18 01:30 Urine Blood Large (Negative) H 03/03/18 01:30 Urine Nitrite Negative (Negative) 03/03/18 01:30 Urine Bilirubin Negative (Negative) 03/03/18 01:30 Urine Urobilinogen 0.2 EU/dL (Up TO 0.2) 03/03/18 01:30 Ur Leukocyte Esterase Large (Negative) H 03/03/18 01:30 Urine RBC Not Applicable 03/03/18 01:30 Urine WBC HPF (0-5) 03/03/18 01:30 Ur Epithelial Cells Not Applicable 03/03/18 01:30 Urine Crystals Not Applicable 03/03/18 01:30 Urine Bacteria Not Applicable 03/03/18 01:30 Urine Mucus Not Applicable 03/03/18 01:30 Ur Culture Indicated? Yes 03/03/18 01:30 Urine Glucose Negative mg/dL (Negative) 03/03/18 01:30 Patient ABO/Rh O Positive 03/03/18 09:58 Antibody Screen Positive 03/03/18 09:58
[2018-03-04] MEDS: Ciprofloxacin 500 MG TAB PO (16:25)
[2018-03-04] MEDS: Acetaminophen 325 MG TAB PO (21:17)
[2018-03-04] MEDS: Budesonide/Formoterol 160/4.5 6 GM 60 PUFF INH IH (21:17)
[2018-03-05 00:05] VITALS: BP 136/67; PULSE 100; RESP 18; TEMP 36.9; O2SAT 94
[2018-03-05] MEDS: Normal Saline Flush 10 ML SYR IVP ×3 (02:08→08:00)
[2018-03-05 04:16] VITALS: BP 153/66; PULSE 99; RESP 18; TEMP 36.8; O2SAT 92
[2018-03-05] MEDS: Heparin 5,000 UNITS/ML VIAL 5000 UNITS SC (06:39)
[2018-03-05 07:24] LABS: Anion Gap 9.9 mmol/L (3-11); BUN 40 mg/dL (7-18); CO2 26.1 mmol/L (21.0-32.0); CREATININE 1.84 mg/dL (0.70-1.30); Calcium 8.5 mg/dL (8.5-10.1); Chloride 110 mmol/L (98-107); Estimated GFR 36.04 (mL/min/1.73m2); Glucose 95 mg/dL (70-100); Magnesium 2.3 mg/dL (1.8-2.4); Sodium 146 mmol/L (136-145)
[2018-03-05 07:35] VITALS: BP 155/72; PULSE 101; RESP 20; TEMP 36.4; O2SAT 94
[2018-03-05 08:18] LABS: HCT 28.1 % (40.0-50.0); HGB 8.5 g/dL (13.5-17.5); RBC 3.28 m/cumm (4.50-6.00); White Blood Cell Count 14.02 k/cumm (4.4-10.8)
[2018-03-05 08:19] LABS: Absolute Eosinophil Count 0.04 k/cumm (0.0-0.7); Absolute Lymphocyte Count 1.79 k/cumm (1.2-3.4); Absolute Monocyte Count 1.07 k/cumm (0.11-0.7); Absolute Neutrophil Count 11.08 k/cumm (1.2-6.7); Eosinophils % 0.3; Lymphocytes % 12.8; Mean Corp. HGB Concentration 30.2 g/dL (32.0-36.0); Mean Corpuscular Hemoglobin 25.9 pg (27.0-33.0); Mean Corpuscular Volume 85.7 fL (80-95); Mean Platelet Volume 11.2 fL (8.0-11.0); Monocytes % 7.6; Platelet Count 186 x1000/uL (130-400); RBC Distribution Width 18.7 % (11.8-14.1)
[2018-03-05 08:20] LABS: Absolute Basophil Count 0.01 k/cumm (0.0-0.2); Basophils % 0.1; Immature Grans % 0.2
--- NOTE | 2018-03-05 08:39 | PGE_ITS ---
Date of Service Date of service: 03/05/18 Time of Service: 08:36 Assessment and Plan (1) Closed left hip fracture: Current visit: Yes Status: Acute Left intertrochanteric hip fracture with improved vascularity to the left foot. This may be from a combination of restart of aspirin and Plavix and the use of Lovenox x1 dose patient's hip is not irritable today he is more alert than he has been since he has been hospitalized. He is stating that his pain is improved Case is discussed with . Patient's hemglobin is 8.5 g. Current orthopedic transfusion trigger is hemoglobin of 7.3. He has cold agglutinin antibodies making it difficult to crossmatch. Dr. miramontes feels that he can probably be safely transferred back to [facility]. I would only recommend bed to chair transfers and staple removal in 10 days. Subjective Interval history since last seen: Patient seems to be alert. He responds to my questions. He states his pain is better. In the last 24 hours his left foot ischemia has improved dramatically and his foot is pink. Exam Extrem Other: His foot hip is minimally irritable. He allows me to put it through some range motion Objective Objective Clinical Data: Abnormal lab results 03/05/18 03/05/18 Range/Units 07:00 07:00 WBC 14.02 H (4.4-10.8) k/cumm RBC 3.28 L (4.50-6.00) m/cumm Hgb 8.5 L (13.5-17.5) g/dL Hct 28.1 L (40.0-50.0) % MCH 25.9 L (27.0-33.0) pg MCHC 30.2 L (32.0-36.0) g/dL RDW 18.7 H (11.8-14.1) % MPV 11.2 H (8.0-11.0) fL Absolute Neutrophils 11.08 H (1.2-6.7) k/cumm Absolute Monocytes 1.07 H (0.11-0.7) k/cumm Sodium 146 H (136-145) mmol/L Chloride 110 H (98-107) mmol/L BUN 40 H (7-18) mg/dL Creatinine 1.84 H (0.70-1.30) mg/dL Vital Signs Temperature 98.2 F 03/05/18 04:16 Temperature Source Tympanic 03/05/18 04:16 Pulse 99 H 03/05/18 04:16 Pulse Rhythm Regular 03/04/18 16:25 Pulse 106 H 03/02/18 23:40 Respiratory Rate 18 03/05/18 04:16 Respiratory Effort Non-Labored 03/04/18 16:25 Respiratory Depth Normal 03/04/18 16:25 Respiratory Pattern Normal 03/04/18 16:25 Blood Pressure 153/66 H 03/05/18 04:16 Blood Pressure Mean 108 03/02/18 23:30 Blood Pressure Position Sitting 03/02/18 19:58 Pulse Oximetry 92 L 03/05/18 04:16 Respiratory End-tidal CO2 30 03/03/18 17:33 Oxygen Delivery Method Room Air 03/05/18 04:16 Oxygen Flow Rate 0 03/05/18 04:16 Pain Level 4 03/04/18 22:17 Comment 03/03/18 17:55 Intake & Output 03/04/18 03/04/18 03/05/18 11:59 23:59 11:59 Intake Total 532.5 / 582.5 50 / 582.5 Output Total 200 / 650 450 / 650 100 / 100 Balance 332.5 / -67.5 -400 / -67.5 -100 / -100 Weight 108 lb 0.424 oz Intake: IV 532.5 / 582.5 50 / 582.5 Output: Urine 200 / 650 450 / 650 100 / 100 Other: Urine Color Pale Light Laisha Urine Appearance Clear Clear Comment Bladder scan for 429cc, catheter flushed no resistance met no aspirate returned. Reported findings to day nurse Denia. Laboratory Results WBC 14.02 k/cumm (4.4-10.8) H 03/05/18 07:00 RBC 3.28 m/cumm (4.50-6.00) L 03/05/18 07:00 Hgb 8.5 g/dL (13.5-17.5) L 03/05/18 07:00 Hct 28.1 % (40.0-50.0) L 03/05/18 07:00 MCV 85.7 fL (80-95) 03/05/18 07:00 MCH 25.9 pg (27.0-33.0) L 03/05/18 07:00 MCHC 30.2 g/dL (32.0-36.0) L 03/05/18 07:00 RDW 18.7 % (11.8-14.1) H 03/05/18 07:00 Plt Count 186 x1000/uL (130-400) 03/05/18 07:00 MPV 11.2 fL (8.0-11.0) H 03/05/18 07:00 Abs Immat Gran (auto) Cancelled 03/03/18 06:53 Immature Gran % 0.2 03/05/18 07:00 Neutrophils % 79.0 03/05/18 07:00 Lymphocytes % 12.8 03/05/18 07:00 Monocytes % 7.6 03/05/18 07:00 Eosinophils % 0.3 03/05/18 07:00 Basophils % 0.1 03/05/18 07:00 Absolute Neutrophils 11.08 k/cumm (1.2-6.7) H 03/05/18 07:00 Band Neutrophils Cancelled 03/03/18 06:53 Absolute Lymphocytes 1.79 k/cumm (1.2-3.4) 03/05/18 07:00 Absolute Monocytes 1.07 k/cumm (0.11-0.7) H 03/05/18 07:00 Absolute Eosinophils 0.04 k/cumm (0.0-0.7) 03/05/18 07:00 Absolute Basophils 0.01 k/cumm (0.0-0.2) 03/05/18 07:00 Metamyelocytes Cancelled 03/03/18 06:53 Myelocytes Cancelled 03/03/18 06:53 Promyelocytes Cancelled 03/03/18 06:53 Nucleated RBCs Cancelled 03/03/18 06:53 Differential Comment Agrees w/ instrument 03/02/18 20:15 Atypical Lymphocytes Cancelled 03/03/18 06:53 Other Cell Type Cancelled 03/03/18 06:53 RBC Morphology Cancelled 03/03/18 06:53 Polychromasia Cancelled 03/03/18 06:53 Hypochromasia Cancelled 03/03/18 06:53 Poikilocytosis Cancelled 03/03/18 06:53 Basophilic Stippling Cancelled 03/03/18 06:53 Anisocytosis Cancelled 03/03/18 06:53 Microcytosis Cancelled 03/03/18 06:53 Macrocytosis Cancelled 03/03/18 06:53 Spherocytes Cancelled 03/03/18 06:53 Target Cells Cancelled 03/03/18 06:53 Tear Drop Cells Cancelled 03/03/18 06:53 Ovalocytes Cancelled 03/03/18 06:53 Stomatocytes Cancelled 03/03/18 06:53 [place] Bodies Cancelled 03/03/18 06:53 Nidia Cells Cancelled 03/03/18 06:53 Acanthocytes (Spur) Cancelled 03/03/18 06:53 Schistocytes Cancelled 03/03/18 06:53 PT 9.9 sec (9.3-10.8) 03/02/18 20:15 INR 1.0 (1.0-3.5) 03/02/18 20:15 APTT 26.2 sec (21.0-31.4) 03/02/18 20:15 Sodium 146 mmol/L (136-145) H 03/05/18 07:00 Potassium 4.0 mmol/L (3.5-5.1) 03/05/18 07:00 Chloride 110 mmol/L (98-107) H 03/05/18 07:00 Carbon Dioxide 26.1 mmol/L (21.0-32.0) 03/05/18 07:00 Anion Gap 9.9 mmol/L (3-11) 03/05/18 07:00 BUN 40 mg/dL (7-18) H 03/05/18 07:00 Creatinine 1.84 mg/dL (0.70-1.30) H 03/05/18 07:00 Estimated GFR/1.73 m2 36.04 (mL/min/1.73m2) 03/05/18 07:00 Glucose 95 mg/dL (70-100) 03/05/18 07:00 Calcium 8.5 mg/dL (8.5-10.1) 03/05/18 07:00 Magnesium 2.3 mg/dL (1.8-2.4) 03/05/18 07:00 Total Bilirubin 0.2 mg/dL (0.2-1.0) 03/02/18 20:15 AST 17 U/L (15-37) 03/02/18 20:15 ALT 17 U/L (12-78) 03/02/18 20:15 Alkaline Phosphatase 100 U/L (46-116) 03/02/18 20:15 Troponin I < 0.02 ng/mL (0.00-0.06) 03/03/18 06:53 Total Protein 8.4 g/dL (6.4-8.2) H 03/02/18 20:15 Albumin 3.8 g/dL (3.4-5.0) 03/02/18 20:15 Urine Color Yellow (Yellow) 03/03/18 01:30 Urine Clarity Cloudy 03/03/18 01:30 Urine pH 5.5 (5-8) 03/03/18 01:30 Ur Specific [place] 1.025 (1.005-1.025) 03/03/18 01:30 Urine Protein 100 mg/dL (Negative) H 03/03/18 01:30 Urine Ketones Trace mg/dL (Negative) H 03/03/18 01:30 Urine Blood Large (Negative) H 03/03/18 01:30 Urine Nitrite Negative (Negative) 03/03/18 01:30 Urine Bilirubin Negative (Negative) 03/03/18 01:30 Urine Urobilinogen 0.2 EU/dL (Up TO 0.2) 03/03/18 01:30 Ur Leukocyte Esterase Large (Negative) H 03/03/18 01:30 Urine RBC Not Applicable 03/03/18 01:30 Urine WBC HPF (0-5) 03/03/18 01:30 Ur Epithelial Cells Not Applicable 03/03/18 01:30 Urine Crystals Not Applicable 03/03/18 01:30 Urine Bacteria Not Applicable 03/03/18 01:30 Urine Mucus Not Applicable 03/03/18 01:30 Ur Culture Indicated? Yes 03/03/18 01:30 Urine Glucose Negative mg/dL (Negative) 03/03/18 01:30 Patient ABO/Rh O Positive 03/03/18 09:58 Antibody Screen Positive 03/03/18 09:58 Antibody Identification Cold Agglutinin Anti-M 03/03/18 09:58 Antibody Identification Cold Agglutinin Anti-M 03/03/18 09:58 Antibody Identification Cold Agglutinin Anti-M 03/03/18 09:58
[2018-03-05] MEDS: Citalopram 10 MG TAB 30 MG PO (09:21)
[2018-03-05] MEDS: Aspirin 81 MG CHEW PO (09:22)
[2018-03-05] MEDS: Clopidogrel 75 MG TAB PO (09:22)
[2018-03-05] MEDS: Tamsulosin 0.4 MG CAPCR PO (09:22)
[2018-03-05] MEDS: Ciprofloxacin 500 MG TAB PO (09:22)
[2018-03-05] MEDS: Folic Acid 1 MG TAB PO (09:22)
[2018-03-05] MEDS: Metoprolol 25 MG TAB 12.5 MG PO (09:22)
[2018-03-05] MEDS: Multivitamin TAB 1 TAB PO (09:22)
[2018-03-05] MEDS: Memantine 5 MG TAB PO (09:22)
[2018-03-05] MEDS: Thiamine 100 MG TAB PO (09:22)
[2018-03-05 11:45] VITALS: BP 155/70; PULSE 93; RESP 18; TEMP 36.2; O2SAT 96
--- NOTE | 2018-03-05 12:56 | W.PM.DS.N ---
Date of service: 03/05/18 Time of Service: 12:56 DS: Diagnosis Discharge Diagnosis (1) Closed left hip fracture: Status: Acute Discharge Plan Disposition Patient Disposition: SNF (LEVEL 1) [facility] Condition: Improving Discharge Details Reason For Visit: LEFT INTERTROCHANTERIC HIP FRACTURE Admit Date/Time: 03/02/18 23:03 Admit Provider: Wellington Lind Attending Provider: Wellington Lind Primary Care Provider: Helen Mann V Hospital Course Hospital Course: 77-year-old man with history of dementia and severe peripheral vascular disease with known aortic and femoral aneurysms presented from [facility] with a left comminuted intertrochanteric hip fracture after sustaining a mechanical fall. Despite the patient's high risk and desire not to pursue aggressive medical care, repair of the hip was performed as a palliative measure to reduce pain and improve mobility and quality of life. Open reduction and internal fixation was performed on March [address] Thomson with no significant complications. As above, the patient is known to have significant peripheral arterial disease. Postoperative day number 1 in the morning he was found to have signs of ischemia to his left foot with purple discoloration across all 5 digits. His aspirin and Plavix were restarted, and by the end of that day pink coloration of the extremity returned and pulses were audible by Doppler at the posterior tibial and dorsalis pedis. Case was reviewed with the family and they did not want to pursue aggressive surgical treatment including amputation. Fortunately, the improved circulation persisted on day of discharge. Her tract infection was noted on admission. The patient has been started on cephalexin and Bactrim as an outpatient. Piperacillin and tazobactam were started at time of admission as culture was growing Pseudomonas. 2 strains of Pseudomonas were sensitive to ciprofloxacin, so he was changed to ciprofloxacin the day prior to discharge. There was a third strain that was unable to be speciated per the microbiology. Given his clinical improvement on renally dosed ciprofloxacin, and low level bacteriuria of 10-50,000 colonies per milliliter, this was not sent out. Patient was discharged with recommendation for 5 more days of therapy. Patient has chronic urinary retention on presentation Mackay catheter was left in place. For outpatient follow-up at the rehab facility. Tamsulosin was continued. Patient's creatinine was slightly above his baseline at 2.08 on admission. It was felt this may have been related to an element of prerenal and possibly his urinary retention. The recent Bactrim use could also have played a part. His creatinine on discharge was 1.84, trending down towards his baseline of about 1.6. Patient had a postop anemia, presumably related to surgical blood loss. Hemoglobin was 9 the day prior to discharge and 8.5 the day of discharge. Did not have any active bleeding. His preop hemoglobin was 11.4. This should be followed as an outpatient. Per Dr. thomson transfusion threshold 7.3 postoperatively. Note was made of his cold agglutinins, making transfusion slightly more problematic. Home Meds and New Rx's Prescriptions: New polyethylene glycol 3350 17 gram Powder In Packet 17 g PO DAILY PRN PRN (Reason: Constipation) Qty: 1 RF: 0 ciprofloxacin HCl 500 mg Tablet 500 mg PO Q18H Qty: 3 RF: 0 Continued citalopram [Celexa] 10 MG tablet 30 mg PO DAILY RF: 0 tamsulosin [Flomax] 0.4 MG capsule 0.4 mg PO DAILY RF: 0 nitroglycerin [Nitrostat] 0.4 MG tablet, sublingual 0.4 mg Sublingual PRN RF: 0 albuterol sulfate [Ventolin HFA] 8 GM HFA aerosol inhaler 1 - 2 puff Inhalation Q4H PRN RF: 0 aspirin [Aspir-81] 81 MG tablet,delayed release (DR/EC) 81 mg PO DAILY RF: 0 multivitamin [Multiple Vitamins] 1 TAB tablet 1 tab PO DAILY Qty: 30 RF: 0 folic acid 1 MG tablet 1 mg PO DAILY Qty: 30 RF: 0 thiamine mononitrate (vit B1) [Vitamin B-1 (mononitrate)] 100 MG tablet 100 mg PO DAILY Qty: 30 RF: 0 tiotropium bromide [Spiriva with HandiHaler] 1 PUFF capsule, w/inhalation device 1 puff Inhalation DAILY Qty: 1 RF: 0 acetaminophen [Pain and Fever] 325 MG tablet 650 mg PO Q4H PRN PRNRF: 0 pantoprazole [Protonix] 40 MG tablet,delayed release (DR/EC) 20 mg PO DAILY RF: 0 OxyCODONE [Roxicodone Prepack] 5 MG Tab 5 mg PO Q4H PRN PRNRF: 0 fluticasone-vilanterol [Breo Ellipta] 1 EACH blister with device 1 ea Inhalation DAILY RF: 0 clopidogrel [Plavix] 75 MG tablet 75 mg PO DAILY RF: 0 memantine [Namenda] 5 MG tablet 5 mg PO DAILY RF: 0 magnesium hydroxide [Milk of Magnesia] 30 ML suspension 30 ml PO Q6H PRNQty: 0 RF: 0 bisacodyl 10 MG suppository 10 mg MI PRN PRNRF: 0 docusate sodium [Stool Softener] 100 MG capsule 100 mg PO BID RF: 0 metoprolol tartrate 25 mg Tablet 12.5 mg PO BID RF: 0 Discontinued albuterol sulfate 8.5 GM HFA aerosol inhaler 8.5 gm Inhalation QID PRN (Reason: Shortness Of Breath) Qty: 1 RF: 0 sulfamethoxazole-trimethoprim [Bactrim DS] 800-160 mg tablet 1 tab PO Q12H Qty: 20 RF: 0 cephalexin [Keflex] 500 mg capsule 500 mg PO TID Qty: 28 RF: 0 Discharge Instructions Instructions: Hip Fracture (GEN) Activity:: Per orthopedics recommendations Equipment/Supplies:: per physical therapy Diet:: As Tolerated Discharge Orders Discharge Orders: Discharge Order (Routine); Ordered 03/05/18 Ordered By: Romeo Posada Other Ambulatory Orders: Basic Metabolic Panel (Routine) Timeframe: 1 Week Location: Determined by Patient Ordered By: Romeo Posada Complete Blood Count w/Diff (Routine) Location: Determined by Patient Ordered By: Romeo Posada Discharge Data Discharge Date/Time-TO BE ENTERED AT DEPARTURE: 03/05/18 12:55 Exam Narrative Exam Narrative: General: Patient appears comfortable this morning, NAD, awake alert and appropriately responsive. Neck: Supple CV: Regular, normal S1S2, no murmur Pulmonary: Clear to auscultation bilaterally with normal effort Abdomen: + Bowel Sounds, soft, nontender, nondistended Vascular: No lower extremity edema. Feet warm and pink and not tender to palpation. DS: Data Vitals/I&O Vitals and I&O: Vital Signs Temperature 36.8 C 03/05/18 04:16 Temperature Source Tympanic 03/05/18 04:16 Pulse 99 H 03/05/18 04:16 Pulse Rhythm Regular 03/05/18 08:50 Pulse 106 H 03/02/18 23:40 Respiratory Rate 18 03/05/18 04:16 Respiratory Effort Non-Labored 03/05/18 08:50 Respiratory Depth Normal 03/05/18 08:50 Respiratory Pattern Normal 03/05/18 08:50 Blood Pressure 153/66 H 03/05/18 04:16 Blood Pressure Mean 108 03/02/18 23:30 Blood Pressure Position Sitting 03/02/18 19:58 Pulse Oximetry 92 L 03/05/18 04:16 Respiratory End-tidal CO2 30 03/03/18 17:33 Oxygen Delivery Method Room Air 03/05/18 04:16 Oxygen Flow Rate 0 03/05/18 04:16 Pain Level 4 03/04/18 22:17 Comment 03/03/18 17:55 Intake & Output 03/04/18 03/05/18 03/05/18 23:59 11:59 23:59 Intake Total 50 / 582.5 570 / 570 Output Total 450 / 650 100 / 100 Balance -400 / -67.5 470 / 470 Intake: IV 50 / 582.5 550 / 550 Oral 20 / 20 Output: Urine 450 / 650 100 / 100 Other: Urine Color Light Laisha Urine Appearance Clear Comment Bladder scan for 429cc, catheter flushed no resistance met no aspirate returned. Reported findings to day nurse Denia. Labs on day of discharge: Labs from last 24 hours 03/05/18 03/05/18 03/03/18 07:00 07:00 09:58 WBC 14.02 H RBC 3.28 L Hgb 8.5 L Hct 28.1 L MCV 85.7 MCH 25.9 L MCHC 30.2 L RDW 18.7 H Plt Count 186 MPV 11.2 H Immature Gran % 0.2 Neutrophils % 79.0 Lymphocytes % 12.8 Monocytes % 7.6 Eosinophils % 0.3 Basophils % 0.1 Absolute Neutrophils 11.08 H Absolute Lymphocytes 1.79 Absolute Monocytes 1.07 H Absolute Eosinophils 0.04 Absolute Basophils 0.01 Sodium 146 H Potassium 4.0 Chloride 110 H Carbon Dioxide 26.1 Anion Gap 9.9 BUN 40 H Creatinine 1.84 H Estimated GFR/1.73 m2 36.04 Glucose 95 Calcium 8.5 Magnesium 2.3 Antibody Screen Positive Antibody Identification Anti-M Preliminary micro results at discharge 03/03/18 01:30 Urine Culture - Preliminary Urine - Reflex from Ua Gram Negative Kalpesh Gram Negative Kalpesh#2 Gram Positive Salome,Mixed PFSH Social History Smoking/Tobacco Use Status: Former Tobacco Use
--- NOTE | 2018-03-05 16:04 | PDOC.CMDIS ---
LACE Index Scoring Tool - Questions: Length of Stay (in days): 3 Acuity (Admit via E.D.?): Yes Comorbidities: PVD E.D. Visits: 2 - Answers: Total Score: 9 Risk of Readmission: Low Risk Care Management Discharge Reason for Hospitalization: Closed comminuted intertrochanteric fracture of (L) femur Discharge Plan: Return to [facility] today and will continue on antibiotic therapy for 5 more days at SNF level of care. Transport elizabet be by ambulance. Patient/Family Education Needs: Discharge instructions
== END 2018-03-05 13:15 | disposition skilled nursing facility (03) | DRG 481 ==
LOC: ER 23:12 → MS 03-03 07:20
PROVIDERS: Internal Medicine; Orthopaedic Surgery; Admitting Provider Internal Medicine; Emergency Provider Emergency Medicine; PCP Family Medicine; Visit Provider Family Medicine
PROC: 0QS704Z Reposition Left Upper Femur with Internal Fixation Device, Open Approach (ICD-10-PCS; CPT 27244; principal; 2018-03-03 15:00)
DX: S72.142A Displaced intertrochanteric fracture of left femur, initial encounter for closed fracture (principal); N17.9 Acute kidney failure, unspecified; N39.0 Urinary tract infection, site not specified; M96.89 Other intraoperative and postprocedural complications and disorders of the musculoskeletal system; Y83.8 Other surgical procedures as the cause of abnormal reaction of the patient, or of later complication, without mention of misadventure at the time of the procedure; M62.272 Nontraumatic ischemic infarction of muscle, left ankle and foot; W19.XXXA Unspecified fall, initial encounter; Y92.129 Unspecified place in nursing home as the place of occurrence of the external cause; E86.0 Dehydration; I72.4 Aneurysm of artery of lower extremity; N40.0 Benign prostatic hyperplasia without lower urinary tract symptoms; R33.8 Other retention of urine; J44.9 Chronic obstructive pulmonary disease, unspecified; I25.10 Atherosclerotic heart disease of native coronary artery without angina pectoris; K27.7 Chronic peptic ulcer, site unspecified, without hemorrhage or perforation; K59.00 Constipation, unspecified; I71.4 Abdominal aortic aneurysm, without rupture; I12.9 Hypertensive chronic kidney disease with stage 1 through stage 4 chronic kidney disease, or unspecified chronic kidney disease; B96.5 Pseudomonas (aeruginosa) (mallei) (pseudomallei) as the cause of diseases classified elsewhere; Z16.30 Resistance to unspecified antimicrobial drugs; G30.9 Alzheimer's disease, unspecified; F02.80 Dementia in other diseases classified elsewhere, unspecified severity, without behavioral disturbance, psychotic disturbance, mood disturbance, and anxiety; Z98.62 Peripheral vascular angioplasty status; I69.320 Aphasia following cerebral infarction; Z87.891 Personal history of nicotine dependence; Z79.02 Long term (current) use of antithrombotics/antiplatelets; Z79.82 Long term (current) use of aspirin; I48.91 Unspecified atrial fibrillation; M81.0 Age-related osteoporosis without current pathological fracture; Z51.5 Encounter for palliative care; N18.9 Chronic kidney disease, unspecified
CPT/HCPCS: 27244; 36415; 51702; 80048; 80053; 85027; 86850; 86900; 86901; 87077; 87081; 93005; 96374; 96375; 99221; 99223; 99232; 99233; 99239; 99285; NC; 71045; 73501; 73502; 74176; 76775; 81003; 81015; 83735; 84484; 85025; 85610; 85730; 86860; 86870; 86880; 86905; 86977; 86978; 87086; 87186; 93010; J1644; J2543; J3010

== ENCOUNTER 2018-03-20 18:16 | Emergency (ER) | payer MEDICARE, MEDICAID, SELFPAY ==
[2018-03-20] VITALS (28 sets, daily range): BP systolic 123–177; BP diastolic 54–90; PULSE 72–95; RESP 12–25; TEMP 36.6; O2SAT 98–100
--- NOTE | 2018-03-20 18:38 | DI.RAD_ITS ---
SYMPTOMS/DIAGNOSIS: PAIN, TENDER S/P FALL LEFT FEMUR: Comparison is made with intraoperative images of February,. A compression screw is again noted in the proximal left femur. There appears to be increased impaction and angulation of the fracture as well as displacement of the greater trochanter when compared with the previous exam. No fractures are seen more distally in the femur. IMPRESSION: Increased impaction and varus angulation at the intertrochanteric fracture. Intact hardware. PELVIS AND LEFT HIP: Comparison is made with intraoperative images of the left hip dated February,. Compared with the intraoperative images, there appears to be increased varus angulation at the intertrochanteric fracture. The hardware appears intact. There also appears to be displacement superomedially of the greater trochanter fracture fragment, which was nondisplaced on the previous exam. The hip joint and acetabulum appear intact. IMPRESSION: Increased angulation and impaction at the intertrochanteric fracture.
--- NOTE | 2018-03-20 18:38 | DI.CT_ITS ---
SYMPTOMS/DIAGNOSIS: HEAD TRAUMA S/P FALL NONCONTRAST HEAD CT: Comparison is made with January,. There are old bilateral basal ganglia infarcts. No acute infarct, hemorrhage or mass is seen. There is atrophy and prominent white matter changes, reflecting severe small vessel disease. The ventricles are unchanged in size. 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 Atrophy and severe sequelae of small vessel disease, stable. No acute abnormality. CT OF THE CERVICAL SPINE: There is no evidence of fracture or subluxation. There are degenerative disc changes, as well as facet degenerative changes. There are numerous small lucencies, which could be related to osteopenia. Emphysematous changes are noted at the lung apices. No pneumothorax is seen. IMPRESSION: Degenerative changes. No acute abnormality.
--- NOTE | 2018-03-20 18:40 | W.ED.GENAD ---
Discharge Plan Disposition Patient Disposition: SNF (LEVEL 1) [facility] Condition: Stable Discharge Details Chief Complaint: Trauma Clinical Impression: Fall, Hip pain, left Reason For Visit: AMINTA Primary Care Provider: Helen Mann V ED Provider: Adolph Vyas Home Meds and New Rx's Prescriptions: No Action citalopram [Celexa] 10 MG tablet 30 mg PO DAILY RF: 0 tamsulosin [Flomax] 0.4 MG capsule 0.4 mg PO DAILY RF: 0 nitroglycerin [Nitrostat] 0.4 MG tablet, sublingual 0.4 mg Sublingual PRN RF: 0 albuterol sulfate [Ventolin HFA] 8 GM HFA aerosol inhaler 1 - 2 puff Inhalation Q4H PRN RF: 0 aspirin [Aspir-81] 81 MG tablet,delayed release (DR/EC) 81 mg PO DAILY RF: 0 multivitamin [Multiple Vitamins] 1 TAB tablet 1 tab PO DAILY Qty: 30 RF: 0 folic acid 1 MG tablet 1 mg PO DAILY Qty: 30 RF: 0 thiamine mononitrate (vit B1) [Vitamin B-1 (mononitrate)] 100 MG tablet 100 mg PO DAILY Qty: 30 RF: 0 tiotropium bromide [Spiriva with HandiHaler] 1 PUFF capsule, w/inhalation device 1 puff Inhalation DAILY Qty: 1 RF: 0 acetaminophen [Pain and Fever] 325 MG tablet 650 mg PO Q4H PRN PRNRF: 0 pantoprazole [Protonix] 40 MG tablet,delayed release (DR/EC) 20 mg PO DAILY RF: 0 OxyCODONE [Roxicodone Prepack] 5 MG Tab 5 mg PO Q4H PRN PRNRF: 0 fluticasone-vilanterol [Breo Ellipta] 1 EACH blister with device 1 ea Inhalation DAILY RF: 0 clopidogrel [Plavix] 75 MG tablet 75 mg PO DAILY RF: 0 memantine [Namenda] 5 MG tablet 5 mg PO DAILY RF: 0 magnesium hydroxide [Milk of Magnesia] 30 ML suspension 30 ml PO Q6H PRNQty: 0 RF: 0 bisacodyl 10 MG suppository 10 mg OR PRN PRNRF: 0 docusate sodium [Stool Softener] 100 MG capsule 100 mg PO BID RF: 0 metoprolol tartrate 25 mg Tablet 12.5 mg PO BID RF: 0 polyethylene glycol 3350 17 gram Powder In Packet 17 g PO DAILY PRN PRN (Reason: Constipation) Qty: 1 RF: 0 ciprofloxacin HCl 500 mg Tablet 500 mg PO Q18H Qty: 3 RF: 0 Discharge Instructions Additional Instructions: There is concern that left hip hardwear has migrated and failed. Patient can mobilize with assistance. No independent ambulation. Patient is considered high risk for fall. Please follow-up with orthopedics. Call to arrange followup and likely repeat surgery this week. Return to the ER for any worsening or new concerning symptoms. Referrals: Helen Mann MD [Primary Care Provider] - Michael Mcdowell MD [ [facility] STAFF PHYSICIAN] - Medical Decision Making 18:45 --77 old male with dementia, transfered from senior care with left hip pain after unwitnessed fall. History and review of systems is unobtainable. Consider acute life-threatening intracranial traumatic hemorrhage as patient is unreliable historian. Consider also C-spine fracture. Plan to CT head and cervical spine. Consider fracture: Plan to x-ray left hip and pelvis as well as left femur. 19:52 --CT of the head interpreted by radiology: No acute intracranial pathology, chronic findings including old lacunar infarcts noted, severe nonspecific hypodensities in the periventricular and deep subcortical white matter most likely due to chronic small vessel ischemic change. CT of the cervical spine interpreted by radiology: No acute cervical spine fracture, numerous nonspecific lucent lesions throughout the visualized spine which could be secondary to chronic osteopenia or possibly metastatic disease. Correlate clinically with history of malignancy. Other chronic findings noted. X-ray of the left femur interpreted by radiology: Intact internal fixation of left intertrochanteric femoral fracture. X-ray of left hip and pelvis interpreted by radiology: Status post internal fixation of the left intertrochanteric femoral fracture with no new fractures. Bony pelvis is intact. Soft tissue swelling of the left thigh is noted. Dr. Mcdowell reviewed xray and called noting concern for hardware failure and migration and need for likely revision surgery later this week. He feels the patient can be discharged back to nursing facility will plan to schedule procedure. Patient reassessed and is remained stable. Plan for discharge back to nursing facility. HPI General Mode of arrival: EMS. Date/Time Provider Initiated Documentation: 03/20/18 18:38. Limitations to Documentation: altered mental status. Information obtained by: EMS. HPI Narrative: 77-year-old male with multiple medical problems including history of Alzheimer's dementia, closed comminuted intertrochanteric fracture of the left femur, presents from senior care after fall with complaint of hip pain. History and review of systems significantly limited secondary to dementia. [facility] staff note that he had an unwitnessed fall. Related Data Home Medications Medication Instructions Recorded Confirmed albuterol sulfate [Ventolin HFA] 1 - 2 puff INHALATION Q4H PRN 08/16/12 03/02/18 puff NS citalopram [Celexa] 30 mg PO DAILY tab-cap NS 08/16/12 03/02/18 nitroglycerin [Nitrostat] 0.4 mg SUBLINGUAL PRN NS 08/16/12 02/27/18 tamsulosin [Flomax] 0.4 mg PO DAILY tab-cap NS 08/16/12 03/02/18 aspirin [Aspir-81] 81 mg PO DAILY 11/06/13 03/02/18 folic acid 1 mg PO DAILY #30 tab 05/24/14 03/02/18 multivitamin [Multiple Vitamins] 1 tab PO DAILY #30 tab 05/24/14 03/02/18 thiamine mononitrate (vit B1) 100 mg PO DAILY #30 tab 05/24/14 03/02/18 [Vitamin B-1 (mononitrate)] tiotropium bromide [Spiriva with 1 puff INHALATION DAILY #1 shailesh 05/24/14 03/02/18 HandiHaler] acetaminophen [Pain and Fever] 650 mg PO Q4H PRN PRN 11/04/14 03/02/18 pantoprazole [Protonix] 20 mg PO DAILY 07/31/15 03/02/18 clopidogrel [Plavix] 75 mg PO DAILY 12/26/16 03/02/18 memantine [Namenda] 5 mg PO DAILY 12/26/16 03/02/18 magnesium hydroxide [Milk of 30 ml PO Q6H PRN #0 01/18/17 02/27/18 Magnesia] bisacodyl 10 mg OR PRN PRN 02/10/17 03/02/18 docusate sodium [Stool Softener] 100 mg PO BID 02/10/17 03/02/18 OxyCODONE [Roxicodone Prepack] 5 mg PO Q4H PRN PRN 07/14/17 03/02/18 fluticasone-vilanterol [Breo 1 ea INHALATION DAILY 11/09/17 03/02/18 Ellipta] metoprolol tartrate 12.5 mg PO BID 03/02/18 03/02/18 ciprofloxacin HCl 500 mg PO Q18H #3 tab 03/05/18 polyethylene glycol 3350 17 g PO DAILY PRN PRN #1 ea 03/05/18 Previous Rx's Medication Instructions Recorded folic acid 1 mg PO DAILY #30 tab 05/24/14 multivitamin [Multiple Vitamins] 1 tab PO DAILY #30 tab 05/24/14 thiamine mononitrate (vit B1) 100 mg PO DAILY #30 tab 05/24/14 [Vitamin B-1 (mononitrate)] tiotropium bromide [Spiriva with 1 puff INHALATION DAILY #1 shailesh 05/24/14 HandiHaler] magnesium hydroxide [Milk of 30 ml PO Q6H PRN #0 01/18/17 Magnesia] ciprofloxacin HCl 500 mg PO Q18H #3 tab 03/05/18 polyethylene glycol 3350 17 g PO DAILY PRN PRN #1 ea 03/05/18 Allergies Allergy/AdvReac Type Severity Reaction Status Date / Time No Known Allergies Allergy Unverified 03/02/18 20:26 General Stated Complaint: Trauma JIGAR: 3 Review of Systems Review of Systems Unobtainable due to mental status PFSH Social History Smoking/Tobacco Use Status: Former Tobacco Use Exam Const General: cooperative and no acute distress [facility] Head: normocephalic and atraumatic Mouth: moist mucous membranes Eyes Conjunctivae: normal conjunctivae Sclera: normal sclerae EOM: EOM intact bilaterally Neck Neck: trachea midline and supple Resp Auscultation: clear to auscultation bilaterally, no rales, no rhonchi and no wheezes Cardio Jugular venous pressure: no JVD Rate: regular rate and not tachycardic Rhythm: regular rhythm GI Palpation: soft, not firm, no guarding, no masses, not rigid and nontender Skin General skin exam: no rashes or lesions noted Neuro General: alert, awake and oriented Patient Orientation: Person Extrem General: no edema and other (distal LLE sensation intact) Left lower extremity: hip/thigh Details: tenderness Location: of the hip and of the proximal upper leg, swelling, abnormal ROM Details: pain with passive ROM Details: with ABduction, with internal rotation and with external rotation and ecchymosis hip lateral Course Vital Signs Temperature 36.6 C 03/20/18 18:23 Pulse 77 03/20/18 18:23 Respiratory Rate 13 03/20/18 18:23 Blood Pressure 173/74 H 03/20/18 18:23 Pulse Oximetry 100 03/20/18 18:23 Temperature 36.6 C 03/20/18 18:23 Temperature Source Skin 03/20/18 18:23 Pulse 77 03/20/18 18:23 Respiratory Rate 13 03/20/18 18:23 Respiratory Effort Non-Labored 03/20/18 18:23 Blood Pressure 173/74 H 03/20/18 18:23 Blood Pressure Position Standing 03/20/18 18:23 Pulse Oximetry 100 03/20/18 18:23 Oxygen Delivery Method Room Air 03/20/18 18:23 Oxygen Flow Rate 0 03/20/18 18:23
--- NOTE | 2018-03-20 18:45 | ED.GENADUL_ITS ---
Discharge Plan Disposition Patient Disposition: SNF (LEVEL 1) [facility] Condition: Stable Discharge Details Chief Complaint: Trauma Clinical Impression: Fall, Hip pain, left Reason For Visit: AMINTA Primary Care Provider: Helen Mann V ED Provider: Adolph Vyas Home Meds and New Rx's Prescriptions: No Action citalopram [Celexa] 10 MG tablet 30 mg PO DAILY RF: 0 tamsulosin [Flomax] 0.4 MG capsule 0.4 mg PO DAILY RF: 0 nitroglycerin [Nitrostat] 0.4 MG tablet, sublingual 0.4 mg Sublingual PRN RF: 0 albuterol sulfate [Ventolin HFA] 8 GM HFA aerosol inhaler 1 - 2 puff Inhalation Q4H PRN RF: 0 aspirin [Aspir-81] 81 MG tablet,delayed release (DR/EC) 81 mg PO DAILY RF: 0 multivitamin [Multiple Vitamins] 1 TAB tablet 1 tab PO DAILY Qty: 30 RF: 0 folic acid 1 MG tablet 1 mg PO DAILY Qty: 30 RF: 0 thiamine mononitrate (vit B1) [Vitamin B-1 (mononitrate)] 100 MG tablet 100 mg PO DAILY Qty: 30 RF: 0 tiotropium bromide [Spiriva with HandiHaler] 1 PUFF capsule, w/inhalation device 1 puff Inhalation DAILY Qty: 1 RF: 0 acetaminophen [Pain and Fever] 325 MG tablet 650 mg PO Q4H PRN PRNRF: 0 pantoprazole [Protonix] 40 MG tablet,delayed release (DR/EC) 20 mg PO DAILY RF: 0 OxyCODONE [Roxicodone Prepack] 5 MG Tab 5 mg PO Q4H PRN PRNRF: 0 fluticasone-vilanterol [Breo Ellipta] 1 EACH blister with device 1 ea Inhalation DAILY RF: 0 clopidogrel [Plavix] 75 MG tablet 75 mg PO DAILY RF: 0 memantine [Namenda] 5 MG tablet 5 mg PO DAILY RF: 0 magnesium hydroxide [Milk of Magnesia] 30 ML suspension 30 ml PO Q6H PRNQty: 0 RF: 0 bisacodyl 10 MG suppository 10 mg [place] PRN PRNRF: 0 docusate sodium [Stool Softener] 100 MG capsule 100 mg PO BID RF: 0 metoprolol tartrate 25 mg Tablet 12.5 mg PO BID RF: 0 polyethylene glycol 3350 17 gram Powder In Packet 17 g PO DAILY PRN PRN (Reason: Constipation) Qty: 1 RF: 0 ciprofloxacin HCl 500 mg Tablet 500 mg PO Q18H Qty: 3 RF: 0 Discharge Instructions Additional Instructions: There is concern that left hip hardwear has migrated and failed. Patient can mobilize with assistance. No independent ambulation. Patient is considered high risk for fall. Please follow-up with orthopedics. Call to arrange followup and likely repeat surgery this week. Return to the ER for any worsening or new concerning symptoms. Referrals: Helen Mann MD [Primary Care Provider] - Michael Mcdowell MD [ [facility] STAFF PHYSICIAN] - Medical Decision Making 18:45 --77 old male with dementia, transfered from retirement with left hip pain after unwitnessed fall. History and review of systems is unobtainable. Consider acute life-threatening intracranial traumatic hemorrhage as patient is unreliable historian. Consider also C-spine fracture. Plan to CT head and cervical spine. Consider fracture: Plan to x-ray left hip and pelvis as well as left femur. 19:52 --CT of the head interpreted by radiology: No acute intracranial pathology, chronic findings including old lacunar infarcts noted, severe nonspecific hypodensities in the periventricular and deep subcortical white matter most likely due to chronic small vessel ischemic change. CT of the cervical spine interpreted by radiology: No acute cervical spine fracture, numerous nonspecific lucent lesions throughout the visualized spine which could be secondary to chronic osteopenia or possibly metastatic disease. Correlate clinically with history of malignancy. Other chronic findings noted. X-ray of the left femur interpreted by radiology: Intact internal fixation of left intertrochanteric femoral fracture. X-ray of left hip and pelvis interpreted by radiology: Status post internal fixation of the left intertrochanteric femoral fracture with no new fractures. Bony pelvis is intact. Soft tissue swelling of the left thigh is noted. Dr. Mcdowell reviewed xray and called noting concern for hardware failure and migration and need for likely revision surgery later this week. He feels the patient can be discharged back to nursing facility will plan to schedule procedure. Patient reassessed and is remained stable. Plan for discharge back to nursing facility. HPI General Mode of arrival: EMS . Date/Time Provider Initiated Documentation: 03/20/18 18:38 . Limitations to Documentation: altered mental status . Information obtained by: EMS . HPI Narrative: 77-year-old male with multiple medical problems including history of Alzheimer's dementia, closed comminuted intertrochanteric fracture of the left femur, presents from retirement after fall with complaint of hip pain. History and review of systems significantly limited secondary to dementia. prison staff note that he had an unwitnessed fall. Related Data Home Medications Medication Instructions Recorded Confirmed albuterol sulfate [Ventolin HFA] 1 - 2 puff INHALATION Q4H PRN 08/16/12 03/02/18 puff NS citalopram [Celexa] 30 mg PO DAILY tab-cap NS 08/16/12 03/02/18 nitroglycerin [Nitrostat] 0.4 mg SUBLINGUAL PRN NS 08/16/12 02/27/18 tamsulosin [Flomax] 0.4 mg PO DAILY tab-cap NS 08/16/12 03/02/18 aspirin [Aspir-81] 81 mg PO DAILY 11/06/13 03/02/18 folic acid 1 mg PO DAILY #30 tab 05/24/14 03/02/18 multivitamin [Multiple Vitamins] 1 tab PO DAILY #30 tab 05/24/14 03/02/18 thiamine mononitrate (vit B1) 100 mg PO DAILY #30 tab 05/24/14 03/02/18 [Vitamin B-1 (mononitrate)] tiotropium bromide [Spiriva with 1 puff INHALATION DAILY #1 shailesh 05/24/14 03/02/18 HandiHaler] acetaminophen [Pain and Fever] 650 mg PO Q4H PRN PRN 11/04/14 03/02/18 pantoprazole [Protonix] 20 mg PO DAILY 07/31/15 03/02/18 clopidogrel [Plavix] 75 mg PO DAILY 12/26/16 03/02/18 memantine [Namenda] 5 mg PO DAILY 12/26/16 03/02/18 magnesium hydroxide [Milk of 30 ml PO Q6H PRN #0 01/18/17 02/27/18 Magnesia] bisacodyl 10 mg [place] PRN PRN 02/10/17 03/02/18 docusate sodium [Stool Softener] 100 mg PO BID 02/10/17 03/02/18 OxyCODONE [Roxicodone Prepack] 5 mg PO Q4H PRN PRN 07/14/17 03/02/18 fluticasone-vilanterol [Breo 1 ea INHALATION DAILY 11/09/17 03/02/18 Ellipta] metoprolol tartrate 12.5 mg PO BID 03/02/18 03/02/18 ciprofloxacin HCl 500 mg PO Q18H #3 tab 03/05/18 polyethylene glycol 3350 17 g PO DAILY PRN PRN #1 ea 03/05/18 Previous Rx's Medication Instructions Recorded folic acid 1 mg PO DAILY #30 tab 05/24/14 multivitamin [Multiple Vitamins] 1 tab PO DAILY #30 tab 05/24/14 thiamine mononitrate (vit B1) 100 mg PO DAILY #30 tab 05/24/14 [Vitamin B-1 (mononitrate)] tiotropium bromide [Spiriva with 1 puff INHALATION DAILY #1 shailesh 05/24/14 HandiHaler] magnesium hydroxide [Milk of 30 ml PO Q6H PRN #0 01/18/17 Magnesia] ciprofloxacin HCl 500 mg PO Q18H #3 tab 03/05/18 polyethylene glycol 3350 17 g PO DAILY PRN PRN #1 ea 03/05/18 Allergies Allergy/AdvReac Type Severity Reaction Status Date / Time No Known Allergies Allergy Unverified 03/02/18 20:26 General Stated Complaint: Trauma JIGAR: 3 Review of Systems Review of Systems Unobtainable due to mental status PFSH Social History Smoking/Tobacco Use Status: Former Tobacco Use Exam Const General: cooperative and no acute distress [facility] Head: normocephalic and atraumatic Mouth: moist mucous membranes Eyes Conjunctivae: normal conjunctivae Sclera: normal sclerae EOM: EOM intact bilaterally Neck Neck: trachea midline and supple Resp Auscultation: clear to auscultation bilaterally, no rales, no rhonchi and no wheezes Cardio Jugular venous pressure: no JVD Rate: regular rate and not tachycardic Rhythm: regular rhythm GI Palpation: soft, not firm, no guarding, no masses, not rigid and nontender Skin General skin exam: no rashes or lesions noted Neuro General: alert, awake and oriented Patient Orientation: Person Extrem General: no edema and other (distal LLE sensation intact) Left lower extremity: hip/thigh Details: tenderness Location: of the hip and of the proximal upper leg, swelling, abnormal ROM Details: pain with passive ROM Details: with ABduction, with internal rotation and with external rotation and ecchymosis hip lateral Course Vital Signs Temperature 36.6 C 03/20/18 18:23 Pulse 77 03/20/18 18:23 Respiratory Rate 13 03/20/18 18:23 Blood Pressure 173/74 H 03/20/18 18:23 Pulse Oximetry 100 03/20/18 18:23 Temperature 36.6 C 03/20/18 18:23 Temperature Source Skin 03/20/18 18:23 Pulse 77 03/20/18 18:23 Respiratory Rate 13 03/20/18 18:23 Respiratory Effort Non-Labored 03/20/18 18:23 Blood Pressure 173/74 H 03/20/18 18:23 Blood Pressure Position Standing 03/20/18 18:23 Pulse Oximetry 100 03/20/18 18:23 Oxygen Delivery Method Room Air 03/20/18 18:23 Oxygen Flow Rate 0 03/20/18 18:23
--- NOTE | 2018-03-20 19:37 | DI.VRAD_ITS ---
EXAM: CT Head Without Contrast EXAM DATE/TIME: 03/20/2018 6:40 PM CLINICAL HISTORY: 77 years old, male; Pain; Neck pain; Patient HX: Fall, head and neck trauma TECHNIQUE: Axial computed tomography images of the head/brain without contrast. All CT scans at this facility use at least one of these dose optimization techniques: automated exposure control; mA and/or kV adjustment per patient size (includes targeted exams where dose is matched to clinical indication); or iterative reconstruction. Coronal and sagittal reformatted images were created and reviewed. COMPARISON: No relevant prior studies available. FINDINGS: Brain: Old lacunar infarcts of the basal ganglia, thalami, right adrienne, and right centrum semiovale. Severe nonspecific hypodensities of the periventricular and deep subcortical white matter, most likely secondary to chronic small vessel ischemic change. No intracranial hemorrhage or extra-axial fluid collection. No evidence of mass effect or midline shift. Marquis-white matter differentiation is normal. Ventricles: Moderate prominence of the ventricles and sulci, most likely attributed to parenchymal volume loss. Bones/joints: No acute osseus lesion or fracture. Sinuses: Unremarkable as visualized. Mastoid air cells: Unremarkable. Soft tissues: Unremarkable. IMPRESSION: 1. No acute intracranial pathology. 2. Other chronic findings, as above. EXAM: CT Cervical Spine Without Contrast EXAM DATE/TIME: 03/20/2018 6:40 PM CLINICAL HISTORY: 77 years old, male; Pain; Neck pain; Patient HX: Fall, head and neck trauma TECHNIQUE: Axial computed tomography images of the cervical spine without intravenous contrast. All CT scans at this facility use at least one of these dose optimization techniques: automated exposure control; mA and/or kV adjustment per patient size (includes targeted exams where dose is matched to clinical indication); or iterative reconstruction. Coronal and sagittal reformatted images were created and reviewed. COMPARISON: No relevant prior studies available. FINDINGS: Vertebrae: Vertebral body heights are maintained. No locked or perched facets. Multilevel facet arthropathy. No acute fracture. The dens is intact. Atlanto-axial intervals are normal. Numerous nonspecific lucent lesions throughout the visualized spine. Discs/Spinal canal/Neural foramina: Multilevel degenerative changes with intervertebral disc height loss and osteophyte formation, with multilevel areas of mild canal narrowing. Soft tissues: Unremarkable. Lungs: Emphysematous changes of the lung apices. IMPRESSION: 1. No acute cervical spine fracture. 2. Numerous nonspecific lucent lesions throughout the visualized spine, which could be secondary to chronic osteopenia or possibly metastatic disease. Correlate clinically with history of malignancy. 3. Other chronic findings, as above. Dictated and Authenticated by: Marvin Chaparro MD. Ordering:NETO Farfan MD
--- NOTE | 2018-03-20 19:45 | DI.VRAD_ITS ---
EXAM: XR Left Femur, 2 Views EXAM DATE/TIME: 03/20/2018 7:18 PM CLINICAL HISTORY: 77 years old, male; Pain; Hip and thigh; Left; Prior surgery; Patient HX: Fall, pain, tenderness TECHNIQUE: XR Left femur, 2 views COMPARISON: CR - XR hip LT complete AP pelvis 03/02/2018 8:31:33 PM FINDINGS: Bones/joints: Status post internal fixation of left intertrochanteric femoral fracture. Hardware is intact. No new fractures identified. Soft tissues: Mild soft tissue swelling of the left thigh. IMPRESSION: Intact internal fixation of left intertrochanteric femoral fracture. Dictated and Authenticated by: Marvin Chaparro MD. Ordering:NETO Farfan MD
--- NOTE | 2018-03-20 19:46 | DI.VRAD_ITS ---
EXAM: XR Left Hip with Pelvis when Performed, 2 or 3 Views EXAM DATE/TIME: 03/20/2018 7:18 PM CLINICAL HISTORY: 77 years old, male; Pain; Hip pain; Left hip; Prior surgery; Patient HX: Fall, pain, tenderness TECHNIQUE: XR Left hip with pelvis when performed, 2 or 3 views COMPARISON: OT XR hip LT in OR 03/03/2018 4:57 PM FINDINGS: Bones/joints: Status post internal fixation of left intertrochanteric femoral fracture. Hardware is intact. No new fractures. Degenerative changes of the visualized spine. Bony pelvis is intact. Soft tissues: Soft tissue swelling of the left thigh. IMPRESSION: Status post internal fixation of left intertrochanteric femoral fracture. Dictated and Authenticated by: Marvin Chaparro MD. Ordering:NETO Farfan MD
== END 2018-03-20 21:27 | disposition skilled nursing facility (03) ==
PROVIDERS: Emergency Provider Student in an Organized Health Care Education/Training Program; PCP Family Medicine
DX: M25.552 Pain in left hip (principal); W18.30XA Fall on same level, unspecified, initial encounter; R93.6 Abnormal findings on diagnostic imaging of limbs; Z96.642 Presence of left artificial hip joint; J44.9 Chronic obstructive pulmonary disease, unspecified; Z87.891 Personal history of nicotine dependence; I10 Essential (primary) hypertension
CPT/HCPCS: 73552; 99284; 70450; 72125; 73502; 99285

== ENCOUNTER → 2018-03-24 10:39 | Outpatient (BNVA) | payer SELFPAY | PROVIDERS: PCP Family Medicine; Visit Provider Nurse Practitioner Gerontology | DX: R69 Illness, unspecified (principal) | CPT/HCPCS: 51702; 99212; 99307 ==

== ENCOUNTER → 2018-03-28 14:35 | Outpatient (CLI) | payer MEDICARE, MEDICAID, SELFPAY | PROVIDERS: PCP Family Medicine; Referring Provider Family Medicine; Visit Provider Orthopaedic Surgery | DX: S72.142D Displaced intertrochanteric fracture of left femur, subsequent encounter for closed fracture with routine healing (principal); W01.0XXD Fall on same level from slipping, tripping and stumbling without subsequent striking against object, subsequent encounter ==

== ENCOUNTER → 2018-04-18 10:56 | Outpatient (BNVA) | payer MEDICARE, MEDICAID, SELFPAY | PROVIDERS: PCP Family Medicine; Visit Provider Nurse Practitioner Gerontology | DX: R33.9 Retention of urine, unspecified (principal) | CPT/HCPCS: 52000; 99213 ==

== ENCOUNTER → 2018-05-04 12:24 | Outpatient (BNVA) | payer MEDICARE, MEDICAID, SELFPAY | PROVIDERS: PCP Family Medicine; Visit Provider Nurse Practitioner Gerontology | DX: R33.9 Retention of urine, unspecified (principal); Z46.6 Encounter for fitting and adjustment of urinary device | CPT/HCPCS: 51702; 99213 ==

== ENCOUNTER → 2018-06-01 12:43 | Outpatient (BNVA) | payer MEDICARE, MEDICAID, SELFPAY | PROVIDERS: PCP Family Medicine; Visit Provider Nurse Practitioner Gerontology | DX: R33.9 Retention of urine, unspecified (principal); Z46.6 Encounter for fitting and adjustment of urinary device | CPT/HCPCS: 51702; 99213 ==

== ENCOUNTER → 2018-06-27 10:52 | Outpatient (BNVA) | payer MEDICARE, MEDICAID, SELFPAY | PROVIDERS: PCP Family Medicine; Visit Provider Nurse Practitioner Gerontology | DX: R33.9 Retention of urine, unspecified (principal); Z46.6 Encounter for fitting and adjustment of urinary device | CPT/HCPCS: 51702; 99213 ==

== ENCOUNTER 2018-07-10 16:38 | Outpatient (REF) | payer MEDICARE, MEDICAID, SELFPAY | END 2018-07-10 16:58 | LOC: LBN 16:38 | PROVIDERS: PCP Family Medicine; Visit Provider Family Medicine | DX: N39.0 Urinary tract infection, site not specified (principal) | CPT/HCPCS: 87086; 87186 ==

== ENCOUNTER 2018-07-18 10:17 | Outpatient (CLI) | payer MEDICARE, MEDICAID, SELFPAY ==
--- NOTE | 2018-07-18 09:30 | DI.US_ITS ---
SYMPTOM/DIAGNOSIS: INCREASED SEDIMENT WITH CATHETER CHANGES, ? STONES, BLADDER STONE, N21.0 RENAL ULTRASOUND: Comparison CT scan is 03/02/18. The right kidney measures 7.4 cm. No solid renal mass, calculus or obstruction is identified. Note is made of a 2 cm. simple cyst at inferior pole of the right kidney. The left kidney measures 7.3 cm. long. No solid renal mass, calculus or obstruction is seen. There is a 1.6 cm. simple cyst in the inferior pole of the left kidney. The prevoid urinary bladder volume is only 8 cc's. The bladder was incompletely prepared for this examination. No definite intraluminal masses are seen. Note is made of a del toro catheter within the urinary bladder. The prostate gland was not visualized. IMPRESSION: 1. The study is limited due to inadequate distension of the urinary bladder. 2. Del Toro catheter in place. 3. Bilateral renal cysts.
== END 2018-07-18 10:37 ==
PROVIDERS: PCP Family Medicine; Visit Provider Nurse Practitioner Gerontology
DX: N21.0 Calculus in bladder (principal); N28.1 Cyst of kidney, acquired; R33.9 Retention of urine, unspecified; Z79.01 Long term (current) use of anticoagulants
CPT/HCPCS: 76770; 99213

== ENCOUNTER 2018-07-26 20:48 | Outpatient (REF) | payer MEDICARE, MEDICAID, SELFPAY ==
[2018-07-26 20:42] LABS: Bilirubin Negative (Negative); Blood Negative (Negative); Clarity Cloudy; Glucose Negative (Negative); Ketones Negative (Negative); Leukocyte Esterase Small (Negative); Nitrite Negative (Negative); Specific Gravity <= 1.005 (1.005-1.025); Urobilinogen 0.2 EU/dL (Up TO 0.2); pH >= 9.0 (5-8)
[2018-07-26 21:32] LABS: Bacteria Many HPF (Negative); C & S Indicated? C&S Done As Ordered; Casts Negative LPF (Negative); Crystals Moderate Triple Phos HPF (Negative); Epithelial Cells Negative HPF (Negative); Mucus Trace (Negative); Other Cells Negative (Negative); RBC Negative (0-2)
== END 2018-07-26 21:08 ==
LOC: LBN 20:48
PROVIDERS: PCP Family Medicine; Visit Provider Internal Medicine
DX: N39.0 Urinary tract infection, site not specified (principal)
CPT/HCPCS: 87077; 81003; 81015; 87070; 87086; 87186; 87205

== ENCOUNTER 2018-08-08 11:15 | Day surgery (SDC) | payer MEDICARE, MEDICAID, SELFPAY ==
[2018-08-08 11:57] VITALS: BP 155/82; PULSE 77; RESP 20; TEMP 36.4; O2SAT 98
[2018-08-08] MEDS: Lactated Ringers 1,000 ML 80 ML IV (12:06)
[2018-08-08] MEDS: ceFAZolin 1 GM/50 ML BAG IVPB (12:51)
[2018-08-08] MEDS: Bupivacaine 0.5% Pres-Free 30 ML VIAL (13:11)
[2018-08-08] MEDS: Lidocaine 2% Jelly 6 ML SYR ×2 (13:11)
--- NOTE | 2018-08-08 13:34 | W.PM.DSUDISC ---
Discharge Plan Disposition Patient Disposition: [facility] ([facility] Condition: Fair Discharge Details Reason For Visit: SP tube placement Attending Provider: Raphael Messer Primary Care Provider: Helen Mann V Home Meds and New Rx's Prescriptions: No Action citalopram [Celexa] 10 MG tablet 20 mg PO DAILY RF: 0 nitroglycerin [Nitrostat] 0.4 MG tablet, sublingual 0.4 mg Sublingual PRN RF: 0 albuterol sulfate [Ventolin HFA] 8 GM HFA aerosol inhaler 1 - 2 puff Inhalation Q4H PRN RF: 0 aspirin [Aspir-81] 81 MG tablet,delayed release (DR/EC) 81 mg PO DAILY RF: 0 multivitamin [Multiple Vitamins] 1 TAB tablet 1 tab PO DAILY Qty: 30 RF: 0 folic acid 1 MG tablet 1 mg PO DAILY Qty: 30 RF: 0 thiamine mononitrate (vit B1) [Vitamin B-1 (mononitrate)] 100 MG tablet 100 mg PO DAILY Qty: 30 RF: 0 Spiriva with HandiHaler 1 PUFF capsule, w/inhalation device 1 puff Inhalation DAILY Qty: 1 RF: 0 acetaminophen [Pain and Fever] 325 MG tablet 650 mg PO Q4H PRN PRNRF: 0 Breo Ellipta 1 EACH blister with device 1 ea Inhalation DAILY RF: 0 clopidogrel [Plavix] 75 MG tablet 75 mg PO DAILY RF: 0 memantine [Namenda] 5 MG tablet 5 mg PO DAILY RF: 0 magnesium hydroxide [Milk of Magnesia] 30 ML suspension 30 ml PO Q6H PRNQty: 0 RF: 0 bisacodyl 10 MG suppository 10 mg [place] PRN PRNRF: 0 docusate sodium [Stool Softener] 100 MG capsule 100 mg PO BID RF: 0 metoprolol tartrate 25 mg Tablet 12.5 mg PO BID RF: 0 polyethylene glycol 3350 17 gram Powder In Packet 17 g PO DAILY PRN PRN (Reason: Constipation) Qty: 1 RF: 0 Discharge Instructions Additional Instructions: hand irrigate catheter with saline prn (use Jason syringe and at least 50 cc fluid) change dressing around suprapubic tube daily and prn - do not be surprised if pt has blood and urine leak around catheter initially (may last several weeks) requiring multiple dressing changes/day F/U in my office 4 to 6 weeks for initial suprapubic catheter change Suprapubic catheter to gravity Activity:: Activity as Tolerated Shower/Bathe:: 24 hours Diet:: As Tolerated Discharge Orders Discharge Orders: Discharge Order (Routine); Ordered 08/08/18 Ordered By: Raphael Messer DS: Diagnosis Discharge Diagnosis (1) Urinary retention: Status: Acute
[2018-08-08 14:15] VITALS: BP 181/98; PULSE 79; RESP 16; TEMP 36.5; O2SAT 100
--- NOTE | 2018-08-08 15:30 | ROE_ITS ---
DATE OF PROCEDURE: August 08, 2018 PREOPERATIVE DIAGNOSIS: Urinary retention. POSTOPERATIVE DIAGNOSIS: Urinary retention. PROCEDURE: Insert suprapubic tube; cystoscopy. SURGEON: Raphael Messer M.D. ANESTHESIA: General. COMPLICATIONS: None. HISTORY: This is a 78-year-old gentleman who has a history of urinary retention. He's been managed with an indwelling urethral catheter. 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 The process of changing the catheter has been very painful for this gentleman . He presents for conversion to a suprapubic tube. OPERATIVE REPORT: The patient was brought to the Operating Room on 08/08/18. He was unable to be pos itioned in stirrups, so he was placed flat with pillows and blankets behind his knees. He was given general anesthesia and his indwelling catheter was removed. His genitalia and suprapubi c area were then prepped and draped. I passed a 16 Wolof coude tipped catheter through the urethra into the bladder. I filled the bladder with 200 cc's of saline. I was then able to pass a spinal ne edle through the suprapubic area into the bladder. Once the needle was positioned, I incised alongside the needle and extended our excision down through the subcutaneous tissue until the rectus fascia was incised. We used a combination of 1% Lidocaine and 0.25% Marcaine for a local anesthetic as well. I was then able to palpate the distended bladder and grasp it in Allis clamps. I opened the wall of the bladder between the clamps and passed an 18 Wolof pokagon-tip catheter through the cystotomy sit e into the bladder. A catheter balloon was then inflated with 20 cc's of sterile water. I was able to pass my finger int o the cystotomy as well, and confirm no large stone particles. I then hand-irrigated the catheter until the irrigant became clear. A few clots were obtained. I then closed the cystotomy site around the catheter using a [id number] #2-0 Vicryl. I closed t he rectus fascia with a simple interrupted #2-0 Vicryl. I closed the skin around the suprapubic tube with two simple interrupted #4-0 nylon sutures. We again hand-irrigated the catheter. The catheter drained freely. Some of the irrigant, as well as blood, leaked around the catheter as would be expected initially. A dry, sterile dressing was applied to the catheter site. The patient tolerated this procedure well. He will return to our clinic in 4 to 6 weeks for his initial catheter change. cc: Helen Mann M.D.
== END 2018-08-08 14:39 | disposition intermediate care facility (04) ==
PROVIDERS: PCP Family Medicine; Visit Provider Urology
PROC: (CPT 51102; principal; 2018-08-08 12:45)
DX: R33.9 Retention of urine, unspecified (principal)
CPT/HCPCS: 51102; J0690; J3010

== ENCOUNTER → 2018-09-19 08:52 | Outpatient (BNVA) | payer MEDICARE, MEDICAID, SELFPAY | PROVIDERS: PCP Family Medicine; Visit Provider Urology | DX: R33.9 Retention of urine, unspecified (principal); I10 Essential (primary) hypertension | CPT/HCPCS: 51705; 99212 ==

== ENCOUNTER 2018-10-11 11:24 | Outpatient (REF) | payer MEDICARE, MEDICAID, SELFPAY ==
[2018-10-11 12:17] LABS: Abs Immature Grans 0.02 k/cumm (0.0-0.09); Absolute Basophil Count 0.05 k/cumm (0.0-0.2); Absolute Eosinophil Count 0.42 k/cumm (0.0-0.7); Absolute Lymphocyte Count 2.28 k/cumm (1.2-3.4); Absolute Monocyte Count 1.07 k/cumm (0.11-0.7); Absolute Neutrophil Count 5.13 k/cumm (1.2-6.7); Basophils % 0.6; Eosinophils % 4.7; HCT 35.5 % (40.0-50.0); HGB 10.7 g/dL (13.5-17.5); Immature Grans % 0.2; Lymphocytes % 25.4; Mean Corp. HGB Concentration 30.1 g/dL (32.0-36.0); Mean Corpuscular Hemoglobin 25.1 pg (27.0-33.0); Mean Corpuscular Volume 83.3 fL (80-95); Mean Platelet Volume 11.5 fL (8.0-11.0); Monocytes % 11.9; Neutrophils % 57.2; Platelet Count 292 x1000/uL (130-400); RBC 4.26 m/cumm (4.50-6.00); RBC Distribution Width 17.2 % (11.8-14.1); White Blood Cell Count 8.97 k/cumm (4.4-10.8)
== END 2018-10-11 11:44 ==
LOC: LBO 11:24
PROVIDERS: PCP Family Medicine; Visit Provider Nurse Practitioner Adult Health
DX: I10 Essential (primary) hypertension (principal)
CPT/HCPCS: 85025

== ENCOUNTER → 2018-10-18 13:38 | Outpatient (BNVA) | payer MEDICARE, MEDICAID, SELFPAY | PROVIDERS: PCP Family Medicine; Visit Provider Urology | DX: R33.9 Retention of urine, unspecified (principal); F03.90 Unspecified dementia, unspecified severity, without behavioral disturbance, psychotic disturbance, mood disturbance, and anxiety | CPT/HCPCS: 99212; 99213 ==

== ENCOUNTER 2018-12-18 01:37 | Outpatient (REF) | payer MEDICARE, MEDICAID, SELFPAY ==
[2018-12-18 02:01] LABS: Bilirubin Negative (Negative); Blood Moderate (Negative); Clarity Sl Cloudy (Clear); Glucose Negative (Negative); Ketones Negative (Negative); Leukocyte Esterase Moderate (Negative); Nitrite Positive (Negative); Specific Gravity 1.015 (1.005-1.025); Urobilinogen 0.2 EU/dL (Up TO 0.2)
[2018-12-18 02:05] LABS: Bacteria Many HPF (Negative); C & S Indicated? C&S Done As Ordered; Casts Negative LPF (Negative); Crystals Few Amorphous HPF (Negative); Epithelial Cells Rare HPF (Negative); Mucus Negative (Negative); RBC 0-2 (0-2)
== END 2018-12-18 01:57 ==
LOC: LBN 01:37
PROVIDERS: PCP Family Medicine; Visit Provider Family Medicine
DX: N39.0 Urinary tract infection, site not specified (principal)
CPT/HCPCS: 81003; 81015; 87086

== ENCOUNTER 2018-12-30 20:33 | Outpatient (REF) | payer MEDICARE, MEDICAID, SELFPAY ==
[2018-12-30 16:40] LABS: Bilirubin Negative (Negative); Blood Moderate (Negative); Clarity Cloudy (Clear); Glucose Negative (Negative); Ketones Negative (Negative); Leukocyte Esterase Moderate (Negative); Nitrite Positive (Negative); Urobilinogen 0.2 EU/dL (Up TO 0.2); pH 6.5 (5-8)
[2018-12-30 16:52] LABS: Epithelial Cells Negative HPF (Negative); RBC >50 (0-2); WBC >50 HPF (0-5)
[2018-12-30 16:53] LABS: C & S Indicated? C&S Done As Ordered; Crystals Many Amorphous HPF (Negative); Mucus Negative (Negative)
== END 2018-12-30 20:53 ==
LOC: LBN 20:33
PROVIDERS: PCP Family Medicine; Visit Provider Nurse Practitioner Adult Health
DX: R50.9 Fever, unspecified (principal); N39.0 Urinary tract infection, site not specified
CPT/HCPCS: 81003; 81015; 87086

== ENCOUNTER 2019-11-01 22:34 | Outpatient (REF) | payer MEDICARE, SELFPAY ==
[2019-11-01 21:12] LABS: Bilirubin Negative (Negative); Blood Large (Negative); Clarity Sl Cloudy (Clear); Glucose Negative (Negative); Ketones Negative (Negative); Leukocyte Esterase Moderate (Negative); Nitrite Positive (Negative); Specific Gravity 1.025 (1.005-1.025); Urobilinogen 0.2 EU/dL (Up TO 0.2)
[2019-11-01 21:15] LABS: Epithelial Cells Few HPF (Negative)
[2019-11-01 21:16] LABS: Bacteria Many HPF (Negative); C & S Indicated? C&S Done As Ordered; Casts Negative LPF (Negative); Crystals Negative HPF (Negative); Mucus Negative (Negative)
== END 2019-11-01 22:54 ==
LOC: LBN 22:34
PROVIDERS: PCP Family Medicine; Visit Provider Family Medicine
DX: R32 Unspecified urinary incontinence (principal); R82.998 Other abnormal findings in urine
CPT/HCPCS: 81003; 81015; 87086

== ENCOUNTER 2019-11-20 13:59 | Outpatient (REF) | payer MEDICARE, SELFPAY ==
[2019-11-21 16:27] LABS: COVID-19 RT-PCR Result Not Detected ((See Note))
== END 2019-11-20 14:19 ==
LOC: LBN 13:59
PROVIDERS: PCP Family Medicine; Visit Provider Nurse Practitioner Adult Health
DX: Z11.59 Encounter for screening for other viral diseases (principal)
CPT/HCPCS: U0003